=== PATIENT | male | born 1955 | race Caucasian/White ===

== ENCOUNTER 2016-07-15 12:22 | Emergency (ER) | payer MEDICARE, BC ==
[2016-07-15 12:28] VITALS: BP 158/93
[2016-07-15] MEDS ORDERED: oxyCODONE/Acetamin 5/325 MG* TAB PO ONE (12:44)
[2016-07-15] MEDS ORDERED: Cyclobenzaprine TAB* 10 MG PO ONE (12:57)
--- NOTE | 2016-07-15 13:49 | RAD ---
HISTORY: Pain behind knee and calf of the left extremity COMPARISONS: February 21, 2014 TECHNIQUE: Multiple transverse and longitudinal ultrasound images were obtained of the left lower extremity from the level of the common femoral vein inferiorly through to the infrapopliteal veins using grayscale, color Doppler, and spectral Doppler imaging with and without compression and with augmentation. Comparison images were obtained of the contralateral common femoral vein. FINDINGS: VEINS: The venous system of the left lower extremity for comparison is compressible throughout its course, with normal flow on color Doppler imaging and normal response to augmentation on spectral Doppler imaging. SOFT TISSUES: Unremarkable. OTHER FINDINGS: None. IMPRESSION: NO LEFT LOWER EXTREMITY DEEP VEIN THROMBOSIS
[2016-07-15] MEDS ORDERED: Ketorolac INJ* 30 MG/ML 1 ML VIAL IM ONE (14:52)
[2016-07-15] MEDS ORDERED: Gabapentin CAP(*) 300 MG PO ONE (15:26)
--- NOTE | 2016-07-15 15:29 | RAD ---
INDICATION: Left lower leg pain. TECHNIQUE: 2 views of the left lower leg were obtained. FINDINGS: The bones are normal alignment. No fracture is seen. IMPRESSION: NO EVIDENCE FOR FRACTURE, IF THE PATIENT'S SYMPTOMS PERSIST CONSIDER MR IMAGING.
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
== END 2016-07-15 16:01 | disposition home or self-care (01) ==
LOC: ED 12:22
DX: M79.605 Pain in left leg (principal)
CPT/HCPCS: 96372; 99282; A9270-GY; J1885

== ENCOUNTER 2016-12-21 14:04 | Observation (INO) | payer MEDICARE, BC ==
[2016-12-21 14:50] LABS: Hematocrit 38 % (42-52); Hemoglobin 12.6 g/dl (14.0-18.0); Mean Corpuscular HGB Conc 34 g/dl (31-36); Mean Corpuscular Hemoglobin 28 pg (27-31); Mean Corpuscular Volume 85 fL (80-94); Mean Platelet Volume 10 um3 (7.4-10.4); Red Blood Count 4.44 10^6/ul (4.0-5.4); Red Cell Distribution Width 14 % (10.5-15); White Blood Count 3.7 10^3/ul (3.5-10.8)
[2016-12-21 15:07] LABS: Albumin 3.9 g/dL (3.2-5.2); BUN/Creatinine Ratio 21.7 (8-20); Calcium 9.1 mg/dL (8.6-10.3); EGFR African American 79.7 (>60); Globulin 2.6 g/dL (2-4); Magnesium 1.9 mg/dL (1.9-2.7); Potassium 4.2 mmol/L (3.5-5.0); Total Bilirubin 0.4 mg/dL (0.2-1.0); Total Protein 6.5 g/dL (6.4-8.9)
[2016-12-21 15:15] LABS: Troponin I 0.05 ng/mL (<0.04)
[2016-12-21] MEDS ORDERED: NS 0.9% 1000 ML* 1,000 ML IV ONE (15:29)
[2016-12-21] MEDS ORDERED: Aspirin TAB* 325 MG PO ONE (15:29)
--- NOTE | 2016-12-21 15:38 | RAD ---
HISTORY: Left leg weakness, headache COMPARISONS: Head CT dated November 09, 2014 TECHNIQUE: Multiple contiguous axial CT scans were obtained of the head without intravenous contrast. FINDINGS: HEMORRHAGE/INFARCT: There is no hemorrhage or acute infarct. MASSES/SHIFT: There is no mass or shift. EXTRA-AXIAL SPACES: There are no extra-axial fluid collections. SULCI AND VENTRICLES: The sulci and ventricles are normal in size and position for the patient's stated age. CEREBRUM: There is left frontal encephalomalacia. BRAINSTEM: There are no focal parenchymal abnormalities. CEREBELLUM: There are no focal parenchymal abnormalities. VESSELS: The vessels are grossly normal. PARANASAL SINUSES: The paranasal sinuses are clear. ORBITS: The orbits are unremarkable. BONES AND SOFT TISSUE: There is post surgical change to the left frontal skull OTHER: None IMPRESSION: STABLE LEFT FRONTAL ENCEPHALOMALACIA. NO ACUTE INTRACRANIAL PATHOLOGY.
[2016-12-21 15:50] LABS: TSH (Thyroid Stimulating Horm) 1.56 mcIU/mL (0.34-5.60)
[2016-12-21] MEDS ORDERED: Metoclopramide IV* 5 MG/ML 2 ML VIAL IV SLOW PU ONE (16:01)
[2016-12-21] MEDS ORDERED: Acetaminophen TAB* 325 MG PO PRN (16:48)
[2016-12-21] MEDS ORDERED: Dextrose 50% Syringe 50 ML* 25 GM/50 ML SYRINGE IV PUSH PRN (16:59)
[2016-12-21] MEDS: oxyCODONE/Acetamin 5/325 MG* TAB PO PRN (17:25)
[2016-12-21] MEDS: NS 0.9% 1000 ML* 1,000 ML IV SCH (18:31)
[2016-12-21] MEDS ORDERED: Gabapentin CAP(*) 300 MG PO SCH (21:00)
[2016-12-21] MEDS: Pancrelipase CAP* 5,000 UNITS CAP PO SCH (21:04)
[2016-12-21] MEDS: Magnesium Oxide TAB* 400 MG PO SCH (21:04)
[2016-12-21] MEDS: Divalproex DR TAB(*) 500 MG PO SCH (21:04)
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
--- NOTE | 2016-12-21 22:31 | PN ---
Progress Note - Progress Note Date of Service: 12/21/16 Note: Nursing called reporting concern for irregular rhythm. ECG requested, reviewed shows NSR rate 67 w/ ischemia. Patient is asymptomatic.
[2016-12-22] MEDS: NS 0.9% 1000 ML* 1,000 ML IV SCH ×2 (02:09→10:45)
[2016-12-22] MEDS: oxyCODONE/Acetamin 5/325 MG* TAB PO PRN ×3 (02:21→11:56)
[2016-12-22 02:34] LABS: Urine Bacteria Absent (Absent); Urine Bilirubin Negative (Negative); Urine Glucose Negative (Negative); Urine Nitrite Negative (Negative)
[2016-12-22 06:22] LABS: Hematocrit 33 % (42-52); Hemoglobin 11.1 g/dl (14.0-18.0); Mean Corpuscular HGB Conc 34 g/dl (31-36); Mean Corpuscular Hemoglobin 29 pg (27-31); Mean Corpuscular Volume 85 fL (80-94); Mean Platelet Volume 10 um3 (7.4-10.4); Red Blood Count 3.88 10^6/ul (4.0-5.4); Red Cell Distribution Width 15 % (10.5-15)
[2016-12-22 06:28] LABS: Comments Flag Yes
[2016-12-22 06:29] LABS: Add Diff/Slide Review? Slide Review Added
[2016-12-22 06:38] LABS: BUN/Creatinine Ratio 25.5 (8-20); Calcium 8.5 mg/dL (8.6-10.3); EGFR African American 105.6 (>60); EGFR Non-African American 82.1 (>60)
[2016-12-22] MEDS: Magnesium Oxide TAB* 400 MG PO SCH (07:28)
[2016-12-22] MEDS: Pancrelipase CAP* 5,000 UNITS CAP PO SCH ×2 (07:29→12:27)
[2016-12-22] MEDS: Divalproex DR TAB(*) 500 MG PO SCH (07:29)
[2016-12-22] MEDS: Insulin LISPRO* 1 UNITS UNIT SUBCUT SCH ×2 (07:35→12:27)
[2016-12-22] MEDS ORDERED: Atorvastatin* 20 MG TAB PO SCH (09:00)
--- NOTE | 2016-12-22 10:25 | PN ---
Subjective Date of Service: 12/22/16 Objective Active Medications: Acetaminophen (Tylenol Tab*) 650 mg PO Q4H PRN PRN Reason: FEVER/PAIN Atorvastatin Calcium (Lipitor*) 20 mg PO QAM [facility] Last Admin: 12/22/16 07:28 Dose: 20 mg Dextrose (D50w Syringe 50 Ml*) 12.5 gm IV PUSH .FOR FS < 60 - SS PRN PRN Reason: FS < 60 Divalproex Sodium (Depakote Dr Tab(*)) 500 mg PO BID [facility] Last Admin: 12/22/16 07:29 Dose: 500 mg Sodium Chloride (Ns 0.9% 1000 Ml*) 1,000 mls @ 125 mls/hr IV PER RATE [facility] Last Admin: 12/22/16 02:09 Dose: 125 mls/hr Insulin Human Lispro (Humalog*) 0 units SUBCUT [facility] PRN Reason: Protocol Last Admin: 12/22/16 07:35 Dose: Not Given Magnesium Oxide (Magox 400 Tab*) 800 mg PO BID [facility] Last Admin: 12/22/16 07:28 Dose: 800 mg Oxycodone/Acetaminophen (Percocet 5/325 Tab*) 1 tab PO Q4H PRN PRN Reason: Pain Last Admin: 12/22/16 07:29 Dose: 1 tab Pancrelipase (Zenpep Delayed Cap*) 40,000 units PO [facility] Last Admin: 12/22/16 07:29 Dose: 40,000 units Vital Signs 12/21/16 12/21/16 12/21/16 17:00 17:25 17:30 Temperature Pulse Rate 58 56 Respiratory 10 16 12 Rate Blood Pressure 136/78 129/80 (mmHg) O2 Sat by Pulse 95 95 Oximetry 12/21/16 12/22/16 12/22/16 18:20 00:24 02:21 Temperature 97.7 F 98.5 F Pulse Rate 55 55 Respiratory 14 18 16 Rate Blood Pressure 128/77 120/76 (mmHg) O2 Sat by Pulse 96 96 Oximetry 12/22/16 12/22/16 12/22/16 03:19 04:21 07:29 Temperature 98.0 F Pulse Rate 57 Respiratory 16 16 18 Rate Blood Pressure 112/72 (mmHg) O2 Sat by Pulse 95 Oximetry Result Diagrams: 12/22/16 06:00 12/22/16 06:00 Assess/Plan/Problems-Billing Assessment:
--- NOTE | 2016-12-22 12:43 | ECHO ---
Patient: ELSY GOMEZ [facility] Rec#: [id number] : 1955 Date: 12/22/2016 Age: 61y Height: 198.1 cm / 78.0 in Weight: 99.3 kg / 218.9 lbs Sex: M BSA: 2.4 Room#: 453 Admit Date#: 12/21/2016 Type: Inpatient Referring: Jaylene Canales MD Reading: Jaylan Pike DO Court Magistrate: Kelley Davison RN RDCS CC: Socorro Larkin, ELECTRICIAN SOUND Transthoracic Echocardiogram Indication: Near sycope, elevated troponin levels BP: 112/72 HR: 54 Rhythm: Bradycardia Findings History: S/P resection of parasagittal meningioma, partial seizures, lumbosacral spondylosis Technical Comments: The study quality is fair. The study is technically limited due to patient body habitus. Completed at 1215. Left Ventricle: The left ventricular chamber size is normal. Mild concentric left ventricular hypertrophy is observed. Global left ventricular wall motion and contractility are within normal limits. There is normal left ventricular systolic function. The estimated ejection fraction is 60-65%. There is no consistent Doppler evidence of clinically significant diastolic dysfunction. Left Atrium: The left atrium is mildly dilated. Right Ventricle: The right ventricular chamber size and systolic function are within normal limits. Right Atrium: The right atrial cavity size is normal. Aortic Valve: The aortic valve is trileaflet. The aortic valve leaflets are mildly thickened. There is no evidence of aortic regurgitation. There is no evidence of aortic stenosis. Mitral Valve: The mitral valve leaflets are mildly thickened. There is trace to mild mitral regurgitation. There is no evidence of mitral stenosis. Tricuspid Valve: The tricuspid valve leaflets are normal. There is trace to mild tricuspid regurgitation. No pulmonary hypertension is noted. There is no tricuspid stenosis. Pulmonic Valve: The pulmonic valve structure is not well visualized. There is no evidence of pulmonic regurgitation. There is no pulmonic stenosis. Pericardium: There is no significant pericardial effusion. Aorta: There is moderate dilatation of the ascending aorta. The aortic arch is not well visualized. There is mild dilatation of the aortic root. Pulmonary Artery: The main pulmonary artery is not well visualized. Venous: The venous system is not well visualized. The inferior vena cava is not visualized. Conclusions The left ventricular chamber size is normal. Mild concentric left ventricular hypertrophy is observed. There is normal left ventricular systolic function. Global left ventricular wall motion and contractility are within normal limits. The estimated ejection fraction is 60-65%. The left atrium is mildly dilated. The right ventricular chamber size and systolic function are within normal limits. No significant valvular abnormalities noted. There is mild to moderate dilatation of the ascending aorta (4.3 cm). No prior studies available for comparison at time of interpretation. Measurements Name Value Normal Range RVDdMajor (2D) 3.7 cm (2.2 - 4.4) RAd ISD 4CH 4.8 cm (3.4 - 4.9) RA (A4C)W 3.6 cm (2.9 - 4.6) IVSd (2D) 1.3 cm (0.6 - 1) LVPWd (2D) 1.2 cm (0.6 - 1) LVIDd (2D) 5.4 cm (3.6 - 5.4) LVIDs (2D) 4.1 cm - LV FS (2D) 24 % (25 - 45) Aortic Annulus 2.6 cm (1.4 - 2.6) Ao root diameter (2D) 4 cm (2.1 - 3.5) Ascending Ao 4.3 cm (2.1 - 3.4) LA dimension (AP) 2D 4.2 cm (2.3 - 3.8) LAd ISD 4CH 4.6 cm (2.9 - 5.3) LA ISD 4CH W 4.2 cm (2.5 - 4.5) Name Value Normal Range MV E-wave Vmax 0.59 m/sec - MV deceleration time 340 msec - MV A-wave Vmax 0.8 m/sec - MV E:A ratio 0.73 ratio - LV septal e' Vmax 0.08 m/sec - LV lateral e' Vmax 0.1 m/sec - LV E:e' septal ratio 7.4 ratio - LV E:e' lateral ratio 5.9 ratio - Name Value Normal Range AV Vmax 1.6 m/sec - AV VTI 40.1 cm - AV peak gradient 10.6 mmHg - AV mean gradient 6.2 mmHg - LVOT Vmax 0.85 m/sec - LVOT VTI 20.9 cm - LVOT peak gradient 2.9 mmHg - LVOT mean gradient 1.6 mmHg - Name Value Normal Range TR Vmax 2.3 m/sec - TR peak gradient 21 mmHg - RAP 8 mmHg - RVSP 29 mmHg - Name Value Normal Range PV Vmax 0.78 m/sec -
[2016-12-22 15:34] VITALS: BP 125/76
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
== END 2016-12-22 17:38 | disposition home or self-care (01) ==
LOC: ED 14:04 → MEDTELE 16:48
PROVIDERS: ADMIT Internal Medicine; ATTEND Internal Medicine
DX: R41.82 Altered mental status, unspecified (principal); R56.9 Unspecified convulsions; R74.8 Abnormal levels of other serum enzymes; E87.2 Acidosis; E86.0 Dehydration; N17.9 Acute kidney failure, unspecified; E11.9 Type 2 diabetes mellitus without complications; Z79.84 Long term (current) use of oral hypoglycemic drugs; K86.89 Other specified diseases of pancreas; E83.42 Hypomagnesemia; I51.7 Cardiomegaly; G93.89 Other specified disorders of brain; K52.9 Noninfective gastroenteritis and colitis, unspecified; M47.16 Other spondylosis with myelopathy, lumbar region; R51 Headache; R53.1 Weakness
CPT/HCPCS: 36415; 70450; 80048; 80053; 81003; 81015; 83605; 83735; 84443; 84484; 85025; 87086; 93005; 93306; 96374; 99285; A9270-GY; G0378; J2765

== ENCOUNTER 2018-06-25 13:59 | Emergency (ER) | payer MEDICARE, BC ==
--- OUTSIDE RECORDS SUMMARY | 2018-06-25 14:06 | XMS REPORT | Continuity of Care Document ---
:1955 External Reference #:[id number] Author Name Eugenia Cai Care Team Providers Name Role Phone Dot Parson N.P. Primary Care Physician Unavailable Payers Date Identification Numbers Payment Provider Subscriber Effective: 1995 Policy Number: [id number] Medicare Elsy Morelos PayID: [id number] [address] [place] [address] Effective: 2014 Policy Number: [id number] BS Facets Elsy Morelos PayID: [id number] [address] [address] [place] [address] Onset: 1987 Policy Number: [id number] [facility] Insurance [facility] Elsy Morelos Group Number: [id number] [address] [address] [place]: [place] [address] Effective: 1997 Policy Number: [id number] BS Of Y Elsy Morelos Expires: 2010 Group Number: [id number] [address] [address] Group Name: [facility] [place] [id number] PayID: [id number] Advance Directives Description No Information Available Problems Date Description Provider Status Onset: 03/12/2013 Brachial neuritis Patrice Zamora M.D. Active Onset: 05/04/2014 Intracranial meningioma Dahlia Brush M.D. Active Note: resection with Dr. Zamora at [facility]: 02/17/14 Onset: 05/04/2014 Localization-related epilepsy Dahlia Brush M.D. Active Note: Secondary to meningioma post resection, Last seizure: 03/11/14 Onset: 05/27/2014 Headache Patrice Zamora M.D. Active Onset: 06/20/2014 Benign neoplasm of cerebral meninges Patrice Zamora M.D. 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 tablets by mouth twice a day. Morphine 04/04/ Active Tablets 15mg 90tab 1 by mouth Patrice Oliveros 2013 s three times a Poll, day as needed M.D. for headaches Lipitor / Active Tablets 20mg 90tab one tab by Unknown 0000 s mouth every night at bedtime Creon / Active Caps [id number] 90cap 9 by mouth Unknown 0000 Part s every day Glipizide / Active Tablets 10mg 1 by mouth Unknown 0000 twice a day Metformin HCL / Active Tablets 1000mg 1 po bid Unknown 0000 Vitamin B / Active Tablets 1 by mouth Unknown Complex 0000 every day Vitamin D-1000 / Active Tablets 1000Unit 90tab 2 by mouth Unknown Maximum 0000 s every day Strength Dexilant / Active Capsules 30mg 30cap 1 by mouth Unknown 0000 DR s every day Tricor / Active Tablets 145mg 30tab 1 by mouth Unknown 0000 s every day Methadone HCL 00/ Active Tablets 10mg 180ta 6 by mouth Unknown 0000 bs three times a day Magnesium 00/ Active Tablets 500mg 1 po qam and Unknown Gluconate 0000 2 po q evening Lamotrigine 12/23/ Hx Kit 25(35)mg 1kit follow G40.209 Dahlia Starter 2018 - instructions Trudi Kit-Blue 01/23/ on kit and in M.D. 2018 note to slowly increase lamotrigine Lamictal 06/24/ Hx Tablets 25mg 120ta take two tabs G40.109 Dahlia 2017 - bs by mouth at [facility], 08/19/ night x 2 M.D. 2017 weeks, then 2 tablets twice a day x 2 weeks, then 2 in am and 4 in pm (with 200mg tabs) Lamotrigine 02/13/ Hx Tablets 200mg 90tab take one and Amaury SKayla 2014 - a half tablet Viviana, 12/20/ by mouth M.D. 2016 twice a day Morphine 10/14/ Hx Tablets 15mg 180ta 1-2 tabs q8 Patrice Dallas Sulfate ER 2014 - ER bs hours as Sera, 04/28/ needed M.D. 2016 Lamotrigine 10/05/ Hx Tablets 150mg 180ta 1 by mouth Dahlia 2014 - bs twice a day Trudi, 02/13/ M.D. 2014 Morphine 09/16/ Hx Tablets 30mg 180ta 1 to 2 tab by 784.0 Patrice Dallas Sulfate ER 2014 - ER bs mouth every 8 Sera, 10/14/ hours as M.D. 2014 needed Methocarbamol 06/20/ Hx Tablets 500mg 60tab 1-3 tab by Patrice Dallas 2014 - s mouth four Pollceferino, 06/23/ times a day M.D. 2016 as needed spams Lamotrigine 05/31/ Hx Tablets 100mg 90tab 1 + 1/2 tabs Dahlia 2014 - s by mouth Trudi, 10/05/ twice a day M.D. 2014 Morphine 05/27/ Hx Caps ER 30mg 90cap 1 cap by 784.0 Patrice Dallas Sulfate ER 2015 - 24HR s mouth every 8 Sera, 09/16/ hours M.D. 2014 Lamotrigine 04/26/ Hx Tablets 25mg 120ta 2 tabs (50mg) Tracey 2013 Marisa bs daily x 1 Gnadt, VAMP WETTER 05/31/ week, then 2014 call office for further instructions. Keppra 03/08/ Hx Tablets 500mg 120ta 1/2 tabs po Dahlia 2013 - bs bid Zoiey, 06/26/ M.D. 2014 Dexamethasone 02/08/ Hx Tablets 4mg 90tab 1 tab by Patrice Dallas 2013 - s mouth three Pollceferino, 03/03/ times a day - M.D. 2014 start on friday02/15/14 Phenytoin 02/08/ Hx Capsules 100mg 210ca 3 by mouth in Tracey Sodium Extended 2013 - ps the morning Sherly, VAMP WETTER 10/04/ and 4 by 2014 mouth every night Alprazolam 02/08/ Hx Tablets 1mg 45tab 1 tab by Patrice Dallas 2013 - s mouth every 6 Sera, 12/19/ hours as M.D. 2016 needed anxiety Augmentin 09/23/ Hx Tablets 875-125mg 14tab take one tab Dirk 2012 q12h x 7 days Yamil, M.D. 2013 Bactrim DS 08/28/ Hx Tablets 800-160mg 20tab 1 po twice a Dirk 2012 Yamil, M.D. 2014 Dilaudid 10/26/ Hx Tablets 4mg 60tab 1-3 tabs po Patrice Dallas 2009 - s qid prn Sera, 05/21/ breakthrough M.D. 2010 pain Demerol 09/29/ Hx Tablets 100mg 60tab one po up to Patrice Dallas 2009 - s q4 hours prn Sera, 05/21/ M.D. 2010 Neurontin 09/26/ Hx Capsules 300mg 1 po tid Patrice Dallas 2009 - Sera, 05/21/ M.D. 2010 Valium 08/22/ Hx Tablets 5mg 6tabs 1-2 po 2 Patrice Dallas 2009 - hours prior Sera, 05/21/ to mri august M.D. 2010 take one or two more q 1 hr prn anxiety Neurontin 05/30/ Hx Capsules 100mg 90cap 1 po qhs to Patrice Dallas 2009 - s start x 2 Sera, 09/26/ days then up M.D. 2009 as tolerable slowly to 3 tid 2 days between each change Carisoprodol 05/15/ Hx Tablets 350mg 45tab one po tid Patrice Dallas 2009 - s prn spasm Sera, M.D. 2010 MS Contin 08/05/ Hx Tablets 100mg 360ta 4 tablets po Patrice Dallas 2008 - ER 12HR bs tid Sera, M.D. 2010 MS Contin 07/01/ Hx 200 90uni 1 PO tid Isaiah 2008 - ts F. 08/05/ Chris 2008 M.D. MS Contin 06/27/ Hx Tablets 60mg 90tab 1 po tid Patrice Dallas 2008 - ER 12HR s (take with Sera, 's) M.DKayla 2009 Protonix 05/26/ Hx Tablets 40mg 30tab 1 po qd while Patrice Dallas 2009 - DR enriquez on naproslee Zamora, M.D. 2009 Naprosyn 05/26/ Hx Tablets 375mg 30tab 1 po tid Patrice Dallas 2008 - s Sera, M.D. 2010 Lyrica 05/24/ Hx Capsules 75mg 90cap 1 po tid Patrice Dallas 2008 - s Sera, M.D. 2009 MS Contin 05/02/ Hx Tablets 100mg 90tab 1 po tid Patrice Dallas 2008 - ER 12HR s (take with Sera, 60's) M.DKayla 2009 Cymbalta 12/31/ Hx Caps DR 30mg 60cap PO bid Patrice Dallas 2007 - PA mina Zamora, M.DKayla 2010 Lyrica 12/24/ Hx Capsules 75mg 14cap 1 PO bid Patrice Dallas 2008 - s Sera MKaylaD. 2009 Fentanyl 12/24/ Hx Patches 50mcg/HR 10uni One Every 3RD Patrice Dallas 2007 - 72HR ts Day Sera, M.DKayla 2010 Dilaudid 12/24/ Hx Tablets 4mg 160ta 1-2 po qid Patrice Dallas 2008 - bs prn Sera, M.DKayla 2010 Oxycodone HCL 11/26/ Hx Capsules 5mg 90cap 1-2 qid prn Patrice Dallas 2007 - s Sera, 09/04/ MBeba 2009 Medrol Dosepak 11/26/ Hx Tablets 4mg 1tabs use as Patrice Dallas 2008 - directed Sera, 05/21/ Fred 2010 Methadone 100MG / Hx Unknown tid 0000 - 2013 Famotidine / Hx Tablets Unknown 60tab take one Unknown 0000 - s tablet day 2013 Wellbutrin SR / Hx Tablets 150mg 60tab 1 by mouth Unknown 0000 - ER 12HR s three times a 2014 Depakote / Hx Tablets 500mg 120ta 1 by mouth Dahlia thomson twice a day Trudi 06/09/ MBeba 2019 Immunizations Description No Information Available Vital Signs Date Vital Result Comment 06/10/2018 8:29am Height 78 inches 6'6" Weight 238.00 lb Heart Rate 66 /min BP Systolic 140 mmHg BP Diastolic 82 mmHg BMI (Body Mass Index) 27.5 kg/m2 04/08/2018 7:51am Height 78 inches 6'6" Weight 245.00 lb Heart Rate 74 /min BP Systolic Sitting 130 mmHg BP Diastolic Sitting 78 mmHg Respiratory Rate 16 /min BMI (Body Mass Index) 28.3 kg/m2 01/23/2018 8:00am Height 78 inches 6'6" Weight 237.00 lb Heart Rate 78 /min BP Systolic Sitting 130 mmHg BP Diastolic Sitting 88 mmHg Respiratory Rate 16 /min BMI (Body Mass Index) 27.4 kg/m2 12/23/2017 9:52am Height 78 inches 6'6" Weight 233.25 lb Heart Rate 80 /min BP Systolic Sitting 120 mmHg BP Diastolic Sitting 72 mmHg Respiratory Rate 20 /min O2 % BldC Oximetry 98 % BMI (Body Mass Index) 27.0 kg/m2 11/14/2017 2:56pm Height 78 inches 6'6" Weight 210.00 lb Heart Rate 64 /min BP Systolic Sitting 124 mmHg BP Diastolic Sitting 78 mmHg Respiratory Rate 16 /min BMI (Body Mass Index) 24.3 kg/m2 01/01/2017 3:48pm Height 78 inches 6'6" Weight 219.00 lb Heart Rate 72 /min BP Systolic Sitting 138 mmHg BP Diastolic Sitting 94 mmHg Respiratory Rate 16 /min BMI (Body Mass Index) 25.3 kg/m2 12/20/2016 9:05am Height 78 inches 6'6" Weight 238.00 lb Heart Rate 72 /min BP Systolic Sitting 120 mmHg BP Diastolic Sitting 70 mmHg Respiratory Rate 16 /min BMI (Body Mass Index) 27.5 kg/m2 06/24/2016 8:30am Height 77 inches 6'5" Weight 257.00 lb Heart Rate 64 /min BP Systolic Sitting 142 mmHg BP Diastolic Sitting 86 mmHg Respiratory Rate 14 /min BMI (Body Mass Index) 30.5 kg/m2 12/20/2015 2:10pm Height 77 inches 6'5" Weight 242.00 lb Heart Rate 70 /min BP Systolic Sitting 122 mmHg BP Diastolic Sitting 70 mmHg Respiratory Rate 16 /min BMI (Body Mass Index) 28.7 kg/m2 08/07/2015 2:32pm Height 77 inches 6'5" Weight 253.00 lb Heart Rate 76 /min BP Systolic Sitting 138 mmHg BP Diastolic Sitting 78 mmHg Pain Level 4 BMI (Body Mass Index) 30.0 kg/m2 05/02/2015 9:33am Height 77 inches 6'5" Weight 253.00 lb Heart Rate 78 /min BP Systolic Sitting 140 mmHg BP Diastolic Sitting 80 mmHg Pain Level 7 BMI (Body Mass Index) 30.0 kg/m2 01/27/2015 10:33am Height 77 inches 6'5" Weight 247.00 lb Heart Rate 78 /min BP Systolic Sitting 140 mmHg BP Diastolic Sitting 90 mmHg Pain Level 2 headache BMI (Body Mass Index) 29.3 kg/m2 10/05/2014 10:34am Height 77 inches 6'5" Weight 250.00 lb Heart Rate 64 /min BP Systolic Sitting 142 mmHg BP Diastolic Sitting 78 mmHg Respiratory Rate 16 /min BMI (Body Mass Index) 29.6 kg/m2 09/20/2014 10:42am Height 77 inches 6'5" Weight 250.00 lb Heart Rate 66 /min BP Systolic Sitting 140 mmHg BP Diastolic Sitting 88 mmHg Pain Level 0 BMI (Body Mass Index) 29.6 kg/m2 06/27/2014 2:37pm Height 77 inches 6'5" Heart Rate 68 /min BP Systolic Sitting 136 mmHg BP Diastolic Sitting 86 mmHg Respiratory Rate 16 /min 06/20/2014 10:03am Height 77 inches 6'5" Weight 241.00 lb Heart Rate 78 /min BP Systolic Sitting 130 mmHg BP Diastolic Sitting 84 mmHg Pain Level 9 back BMI (Body Mass Index) 28.6 kg/m2 05/27/2014 1:49pm Height 77 inches 6'5" Weight 279.00 lb Heart Rate 78 /min BP Systolic Sitting 180 mmHg BP Diastolic Sitting 100 mmHg Pain Level 8 headache BMI (Body Mass Index) 33.1 kg/m2 05/09/2014 2:27pm Height 77 inches 6'5" Weight 274.00 lb BMI (Body Mass Index) 32.5 kg/m2 05/04/2014 2:02pm Height 77 inches 6'5" Weight 265.00 lb Heart Rate 80 /min BP Systolic Sitting 166 mmHg BP Diastolic Sitting 102 mmHg Respiratory Rate 16 /min BMI (Body Mass Index) 31.4 kg/m2 04/06/2014 1:34pm Height 77 inches 6'5" Weight 276.00 lb Heart Rate 72 /min BP Systolic Sitting 140 mmHg BP Diastolic Sitting 82 mmHg Respiratory Rate 16 /min BMI (Body Mass Index) 32.7 kg/m2 04/04/2014 3:07pm Height 77 inches 6'5" Weight 276.00 lb Heart Rate 78 /min BP Systolic 130 mmHg BP Diastolic 88 mmHg Pain Level 5 headache BMI (Body Mass Index) 32.7 kg/m2 03/16/2014 11:26am Height 77 inches 6'5" Weight 268.00 lb Heart Rate 80 /min BP Systolic Sitting 120 mmHg BP Diastolic Sitting 78 mmHg Respiratory Rate 16 /min BMI (Body Mass Index) 31.8 kg/m2 02/08/2014 11:14am Height 77 inches 6'5" Weight 275.00 lb Heart Rate 88 /min BP Systolic Sitting 220 mmHg BP Diastolic Sitting 120 mmHg Pain Level 5 head BMI (Body Mass Index) 32.6 kg/m2 03/12/2013 1:17pm Heart Rate 88 /min BP Systolic 180 mmHg BP Diastolic 100 mmHg Body Temperature 97.8 F Results Test Date Facility Test Result H/L Range Note Laboratory test [facility] Valproic Acid 80.0 N 50- 100 finding [address] (Depakene) g/[place] [address] [phone] Laboratory test [facility] Valproic Acid 68.0 N 50- 100 finding [address] (Depakene) g/[place] [address] [phone] Laboratory test [facility] Valproic Acid 64.0 N 50- 100 finding [address] (Depakene) g/[place] [address] [phone] Laboratory test [facility] Lamotrigine 1.6 g/mL Abnormal 2.5 - 1 finding [address] (Lamictal) 15.0 [place] [address] [phone] Laboratory test Lamotrigine 3.8 g/mL N 2.5 - 2 finding 5 (Lamictal) 15.0 Magnesium 1.7 mg/dL Low 1.9-2.7 Creatinine 05/06/2014 [facility] Creatinine 0.99 mg/dL N 0.67- 1.[address] [place] [address] [phone] Egfr Non- 78.2 N >60 Egfr 100.6 N >60 3 Phenytoin Free & Total 05/02/2014 Free Phenytoin Level 1.4 g/mL N 4 Total Phenytoin 15.5 g/mL N 5 Laboratory test finding 04/15/2014 Phenytoin 9.5 g/mL Low 10.0-20.0 Magnesium 1.6 mg/dL Low 1.9-2.7 Laboratory test finding 04/15/2014 Levetiracetam 3.0 g/mL Abnormal 6 Laboratory test finding 03/25/2014 Magnesium 1.5 mg/dL Low 1.9-2.7 7 Phenytoin 16.5 g/mL N 10.0-20.0 8 Laboratory test 03/11/2014 [facility] Phenytoin 12.2 g/mL N 10.0-20.[address] [place] [address] [phone] Comp Metabolic 03/11/2014 [facility] Sodium 140 mmol/L N 133- [address] [place] [address] [phone] Potassium 4.3 mmol/L N 3.5-5.0 9 Chloride 105 mmol/L N 101-111 Co2 Carbon Dioxide 28 mmol/L N 22-32 Anion Gap 7 mmol/L N 2-11 Glucose 72 mg/dL N 70-100 Blood Urea Nitrogen 13 mg/dL N 6-24 Creatinine 0.83 mg/dL N 0.67-1.17 BUN/Creatinine Ratio 15.7 N 8-20 Calcium 9.1 mg/dL N 8.6-10.3 Total Protein 5.8 g/dL Low 6.4-8.9 Albumin 3.6 g/dL N 3.2-5.2 Globulin 2.2 g/dL N 2-4 Albumin/Globulin Ratio 1.6 N 1-3 Total Bilirubin 0.30 mg/dL N 0.2-1.0 Alkaline Phosphatase 41 U/L N 34-104 Alt 25 U/L N 7-52 Ast 26 U/L N 13-39 Egfr Non- 95.8 N >60 Egfr 123.3 N >60 10 Laboratory test 03/11/2014 [facility] Magnesium 1.3 mg/dL Low 1.9-2.[address] [place] [address] [phone] CBC No Diff 02/11/2014 [facility] White Blood 5.6 N 4.8-10.[address] Count 10^3/[place] [address] [phone] Red Blood Count 4.30 10^6/uL N 4.0-5.4 Hemoglobin 13.3 g/dL Low 14.0-18.0 Hematocrit 40 % Low 42-52 Mean Corpuscular Volume 93 fL N 80-94 Mean Corpuscular Hemoglobin 31 pg N 27-31 Mean Corpuscular HGB Conc 33 g/dL N 31-36 Red Cell Distribution Width 14 % N 10.5-15 Platelet Count 103 10^3/uL Low 150-450 Mean Platelet Volume 10 um3 N 7.4-10.4 Type & Screen 02/11/2014 [facility] Patient Blood Type O Positive N [address] [place] [address] [phone] Antibody Screen NEGATIVE N Laboratory test 02/11/2014 [facility] Blood Urea 6 mg/dL N 6- [address] [place] [address] [phone] Creatinine 02/11/2014 [facility] Creatinine 0.91 mg/dL N 0.67- [address] [place], [place] [address] [phone] Egfr Non- 86.2 N >60 Egfr 110.8 N >60 12 Basic Metabolic Panel 02/11/2014 [facility] Sodium 134 mmol/L N 133-[address] [place] [address] [phone] Potassium 4.0 mmol/L N 3.7-5.6 Chloride 100 mmol/L Low 101-111 Co2 Carbon Dioxide 26 mmol/L N 22-32 Anion Gap 8 mmol/L N 2-11 Glucose 158 mg/dL High 70-100 Creatinine 0.91 mg/dL N 0.67-1.17 BUN/Creatinine Ratio 6.6 Low 8-20 Calcium 8.5 mg/dL Low 8.6-10.3 Egfr Non- 86.2 N >60 Egfr 110.8 N >60 13 Surgical Pathology 09/10/2012 [facility] S RUN DATE: 14 10/05/ <[place] [address] NOTE> [phone] Urinalysis 08/27/2012 [facility] [place] [address] [phone] Urine Appearance Clear Urine Specific [place] 1.031 High 1.010-1.030 Urine Esterase 1+ Abnormal Negative Urine Nitrate Negative Negative Urine Urobilinogen Negative E.U./dL Negative Urine Protein Trace mg/dL Negative Urine pH 5.5 5-9 Urine Blood Negative Negative Urine Ketones Trace mg/dL Abnormal Negative Urine Bilirubin 1+ Abnormal Negative Urine Glucose Negative mg/dL Negative Urine Microscopic 08/27/2012 [facility] Urine Casts 2+ Hyaline None Seen [address]IVE /[place] [address] [phone] Urine WBC 1+ (<3 /hpf) None Seen Urine RBC None Seen None Seen Urine Mucus Present /lpf Absent Urine Epithelial Cells 1+ Squamous /hpf None Seen Crystals Urine Calcium Oxalate /lpf None Seen Urine Culture And 08/27/2012 [facility] Urine Culture (SEE NOTE ) [address] [place] [address] [phone] CBC Auto Diff 08/27/2012 [facility] White Blood 5.3 10^3/uL 4.8-[address] Count .8 [place] [address] [phone] Red Blood Count 4.57 10^6/uL 4.0-5.4 Hemoglobin 14.4 g/dL 14.0-18.0 Hematocrit 43 % 42-52 Mean Corpuscular Volume 95 fL High 80-94 Mean Corpuscular Hemoglobin 32 pg High 27-31 Mean Corpuscular HGB Conc 33 g/dL 31-36 Red Cell Distribution Width 13 % 10.5-15 Platelet Count 120 10^3/uL Low 150-450 Mean Platelet Volume 10 um3 7.4-10.4 Abs Neutrophils 3.4 10^3/uL 1.5-7.7 Abs Lymphocytes 1.3 10^3/uL 1.0-4.8 Abs Monocytes 0.4 10^3/uL 0-0.8 Abs Eosinophils 0.2 10^3/uL 0-0.6 Abs Basophils 0 10^3/uL 0-0.2 Abs Nucleated RBC 0 10^3/uL Granulocyte % 64.3 % 38-83 Lymphocyte % 24.2 % Low 25-47 Monocyte % 7.8 % 1-9 Eosinophil % 3.0 % 0-6 Basophil % 0.7 % 0-2 Nucleated Red Blood Cells % 0.1 Comp Metabolic Panel 08/27/2012 [facility] Sodium 137 mmol/L 133-[address] [place] [address] [phone] Potassium 4.4 mmol/L 3.5-5.0 Chloride 101 mmol/L 101-111 Co2 Carbon Dioxide 29.0 mmol/L 22-32 Anion Gap 7.0 mmol/L 2-11 Glucose 132 mg/dL High 70-100 Blood Urea Nitrogen 7 mg/dL 6-24 Creatinine 1.00 mg/dL 0.50-1.40 BUN/Creatinine Ratio 7.0 Low 8-20 Calcium 9.0 mg/dL 8.1-9.9 Total Protein 5.9 g/dL Low 6.2-8.1 Albumin 4.0 g/dL 3.6-5.4 Globulin 1.9 g/dL Low 2-4 Albumin/Globulin Ratio 2.1 1-3 Total Bilirubin 0.9 mg/dL 0.4-1.5 Alkaline Phosphatase 58 U/L 30-110 Alt 58 U/L High 14-54 Ast 77 U/L High 12-42 Egfr Non- 77.9 >60 Egfr 100.1 >60 16 Type & Screen 08/27/2012 [facility] Patient Blood Type O Positive [address] [place] [address] [phone] Antibody Screen NEGATIVE MRSA/Vre Screen 09/07/2009 [facility] MRSA/Vre NFICU [address] [place] [address] [phone] Surgical 09/07/2009 [facility] Surgical [address] Pathology ----- <[place] [address] NOTE> [phone] Basic Metabolic 09/04/2009 [facility] Sodium 136 mmol/L 135- 14 [address] 5 [place] [address] [phone] Potassium 4.1 mmol/L 3.5-5.0 Chloride 104 mmol/L 101-111 Co2 (Carbon Dioxide) 26.0 mmol/L 22-32 Anion Gap 6.0 mmol/L 2-11 20 Glucose 148 mg/dL High 70-100 21 BUN 9 mg/dL 6-24 Creatinine 0.80 mg/dL 0.50-1.40 One Over Creatinine 1.20 BUN/Creatinine Ratio 11.3 8-20 Calcium 8.8 mg/dL 8.1-9.9 22 eGFR Non- 107.9 > 60 eGFR 130.5 > 60 23 CBC With 09/04/2009 [facility] White Blood 4.2 CUMM Low 4.8- 10.8 Electronic Diff [address] [place] [address] [phone] Red Cell Count 4.34 CUMM Low 4.6-6.2 Hemoglobin 12.4 g/dL Low 14.0-18.0 Hematocrit 36 % Low 42-52 Mean Corpuscular Volume 84 um3 80-94 Mean Corpuscular Hemoglob 29 pg 27-31 Mean Corpuscular HGB Cone 34 g/dL 32-36 Redcell Distribution WDTH 15 % 10.5-15 Platelet Count 134 CUMM Low 150-450 Mean Platelet Volume 9.1 um3 7.4-10.4 Gran % 63.7 % 38-83 Lymph % 23.2 % Low 25-47 Mononuclear % 8.2 % 1-9 Eosinophil % 4.5 % 0-6 Basophil % 0.4 % 0-2 Abs Lymphs 1.0 1.0-4.8 Abs Mononuclear 0.3 0-0.8 Absolute Neutrophil Count 2.6 1.5-7.7 Abs Eosinophils 0.2 0-0.6 Abs Basophils 0 0-0.2 Type And Screen 09/04/2009 [facility] Patient Blood Type O POSITIVE [address] [place] [address] [phone] Antibody Screen NEGATIVE Specimen Discard Date 09/18/09 24 Surgical 07/13/2008 [facility] Surgical 25 Pathology 101 [facility] Pathology <SEE NOTE> [place] [address] [phone] Lyme Western 06/28/2008 [facility] Lyme Disease Negative Negative 26 Blot [facility] [place] [address] Blot [phone] Lyme Disease Igm Western Blot Negative Negative 27 Lyme Disease Interpretation . () 28 Laboratory test 06/28/2008 [facility] C Reactive < 0.5 mg/dL Less Than finding [facility] Protein 0.5 [place] [address] [phone] Erythrocyte Sed Rate 3 MM/HR 0-20 Protime 06/14/2008 [facility] Protime 11.6 10.9-13.3 [address] [place] [address] [phone] Inr 0.92 29 Laboratory test 06/14/2008 [facility] PTT (Aptt) 21.3 20.1- 28.2 30 finding [address] [place] [address] [phone] Basic Metabolic 06/14/2008 [facility] Sodium 138 mmol/L 135- 145 Panel [address] [place] [address] [phone] Potassium 4.4 mmol/L 3.5-5.0 Chloride 108 mmol/L 101-111 Co2 (Carbon Dioxide) 28.3 mmol/L 22-32 Anion Gap 1.7 mmol/L Low 2-11 31 Glucose 125 mg/dL High 70-100 32 BUN 23 mg/dL 6-24 Creatinine 0.97 mg/dL 0.50-1.40 One Over Creatinine 1.00 BUN/Creatinine Ratio 23.7 High 8-20 Calcium 9.0 mg/dL 8.1-9.9 33 CBC With 06/14/2008 [facility] White Blood 4.0 CUMM Low 4.8- 10.8 Electronic Diff [address] [place] [address] [phone] Red Cell Count 4.55 CUMM Low 4.6-6.2 Hemoglobin 13.1 g/dL Low 14.0-18.0 Hematocrit 38 % Low 42-52 Mean Corpuscular Volume 84 um3 80-94 Mean Corpuscular Hemoglob 29 pg 27-31 Mean Corpuscular HGB Cone 35 g/dL 32-36 Redcell Distribution WDTH 15 % 10.5-15 Platelet Count 157 CUMM 150-450 Mean Platelet Volume 9.3 um3 7.4-10.4 Gran % 54.5 % 38-83 Lymph % 34.3 % 25-47 Mononuclear % 6.8 % 1-9 Eosinophil % 4.0 % 0-6 Basophil % 0.4 % 0-2 Abs Lymphs 1.4 1.0-4.8 Abs Mononuclear 0.3 0-0.8 Absolute Neutrophil Count 2.2 1.5-7.7 Abs Eosinophils 0.2 0-0.6 Abs Basophils 0 0-0.2 Laboratory test 01/15/2008 [facility] Glucose 253 mg/dL High 70-100 [address] [place] [address] [phone] Hemoglobin A1c 6.9 % High <6.0 35 Basic Metabolic Panel 01/15/2008 [facility] Sodium 136 mmol/L 135-[address] [place] [address] [phone] Potassium 4.3 mmol/L 3.5-5.0 Chloride 102 mmol/L 101-111 Co2 (Carbon Dioxide) 25.0 mmol/L 22-32 Anion Gap 9.0 mmol/L 2-11 36 Glucose 233 mg/dL High 70-100 37 BUN 20 mg/dL 6-24 Creatinine 1.2 mg/dL 0.5-1.4 One Over Creatinine 0.83 BUN/Creatinine Ratio 16.7 8-20 Calcium 8.0 mg/dL Low 8.1-9.9 38 CBC With 01/15/2008 [facility] White Blood 11.8 CUMM High 4.8- 10.8 Manual Diff [address] [place] [address] [phone] Red Cell Count 4.23 CUMM Low 4.6-6.2 Hemoglobin 12.5 g/dL Low 14.0-18.0 Hematocrit 36 % Low 42-52 Mean Corpuscular Volume 85 um3 80-94 Mean Corpuscular Hemoglob 30 pg 27-31 Mean Corpuscular HGB Cone 35 g/dL 32-36 Redcell Distribution WDTH 14 % 10.5-15 Platelet Count 185 CUMM 150-450 Mean Platelet Volume 9.4 um3 7.4-10.4 Polysegmented Neutrophil 85 % High 38-83 Band Neutrophil 1 % 0-8 Lymphocyte 11 % 5-47 Monocyte 3 % 0-13 Absolute Neutrophil Count 10.1 RBC Morphology NORMAL CBC With 01/14/2008 [facility] White Blood 9.4 CUMM 4.8-10.8 Electronic Diff [address] [place] [address] [phone] Red Cell Count 4.43 CUMM Low 4.6-6.2 Hemoglobin 13.2 g/dL Low 14.0-18.0 Hematocrit 38 % Low 42-52 Mean Corpuscular Volume 85 um3 80-94 Mean Corpuscular Hemoglob 30 pg 27-31 Mean Corpuscular HGB Cone 35 g/dL 32-36 Redcell Distribution WDTH 13 % 10.5-15 Platelet Count 185 CUMM 150-450 Mean Platelet Volume 8.8 um3 7.4-10.4 Gran % 87.2 % High 38-83 Lymph % 10.6 % Low 20-45 Mononuclear % 1.8 % 1-9 Eosinophil % 0.2 % 0-6 Basophil % 0.2 % 0-2 Abs Lymphs 1.0 1.0-4.8 Abs Mononuclear 0.2 0-0.8 Absolute Neutrophil Count 8.2 High 1.5-7.7 Abs Eosinophils 0 0-0.6 Abs Basophils 0 0-0.2 39 Basic Metabolic Panel 01/14/2008 [facility] Sodium 136 mmol/L 135-[address] [place] [address] [phone] Potassium 5.1 mmol/L High 3.5-5.0 Chloride 103 mmol/L 101-111 Co2 (Carbon Dioxide) 25.0 mmol/L 22-32 Anion Gap 8.0 mmol/L 2-11 40 Glucose 233 mg/dL High 70-100 41 BUN 21 mg/dL 6-24 Creatinine 1.5 mg/dL High 0.5-1.4 One Over Creatinine 0.66 BUN/Creatinine Ratio 14.0 8-20 Calcium 8.1 mg/dL 8.1-9.9 42 Basic Metabolic Panel 01/14/2008 [facility] Sodium 138 mmol/L 135-[address] [place] [address] [phone] Potassium 4.2 mmol/L 3.5-5.0 Chloride 108 mmol/L 101-111 Co2 (Carbon Dioxide) 26.0 mmol/L 22-32 Anion Gap 4.0 mmol/L 2-11 43 Glucose 139 mg/dL High 70-100 44 BUN 16 mg/dL 6-24 Creatinine 0.9 mg/dL 0.5-1.4 One Over Creatinine 1.11 BUN/Creatinine Ratio 17.8 8-20 Calcium 8.7 mg/dL 8.1-9.9 45 CBC With 01/14/2008 [facility] White Blood 4.6 CUMM Low 4.8- 10.8 Electronic Diff [address] [place] [address] [phone] Red Cell Count 4.37 CUMM Low 4.6-6.2 Hemoglobin 12.9 g/dL Low 14.0-18.0 Hematocrit 37 % Low 42-52 Mean Corpuscular Volume 84 um3 80-94 Mean Corpuscular Hemoglob 29 pg 27-31 Mean Corpuscular HGB Cone 35 g/dL 32-36 Redcell Distribution WDTH 13 % 10.5-15 Platelet Count 166 CUMM 150-450 Mean Platelet Volume 8.9 um3 7.4-10.4 Gran % 52.8 % 38-83 Lymph % 31.9 % 20-45 Mononuclear % 9.4 % High 1-9 Eosinophil % 5.2 % 0-6 Basophil % 0.7 % 0-2 Abs Lymphs 1.5 1.0-4.8 Abs Mononuclear 0.4 0-0.8 Absolute Neutrophil Count 2.4 1.5-7.7 Abs Eosinophils 0.2 0-0.6 Abs Basophils 0 0-0.2 Type & Screen 01/14/2008 [facility] Patient Blood Type O POSITIVE [address] [place] [address] [phone] Antibody Screen NEGATIVE Surgical 01/14/2008 [facility] Surgical [address] Pathology <SEE NOTE> [place] [address] [phone] Surgical 12/10/2007 [facility] Surgical [address] Pathology <SEE NOTE> [place] [address] [phone] Cortical Block 12/09/2007 [facility] Cortical [id number] 48 Green #[address] [place] Green <SEE NOTE> [place] [address] #6 [phone] Cortical Block 12/09/2007 [facility] Cortical [id number] 49 Green #[address] [place] <SEE NOTE> [place] #7 [phone] Tissue Kit 12/09/2007 [facility] Tissue Kit [id number] [address] <SEE NOTE> [place] [address] [phone] CBC With 12/07/2007 [facility] White Blood 3.7 CUMM Low 4.8 [address] Count -10 Diff [place] [address] .8 [phone] Red Cell Count 4.39 CUMM Low 4.6-6.2 Hemoglobin 13.1 g/dL Low 14.0-18.0 Hematocrit 37 % Low 42-52 Mean Corpuscular Volume 84 um3 80-94 Mean Corpuscular Hemoglob 30 pg 27-31 Mean Corpuscular HGB Cone 35 g/dL 32-36 Redcell Distribution WDTH 13 % 10.5-15 Platelet Count 138 CUMM Low 150-450 Mean Platelet Volume 9.4 um3 7.4-10.4 Gran % 50.3 % 38-83 Lymph % 35.2 % 20-45 Mononuclear % 8.6 % 1-9 Eosinophil % 5.4 % 0-6 Basophil % 0.5 % 0-2 Abs Lymphs 1.3 1.0-4.8 Abs Mononuclear 0.3 0-0.8 Absolute Neutrophil Count 1.9 1.5-7.7 Abs Eosinophils 0.2 0-0.6 Abs Basophils 0 0-0.2 Basic Metabolic Panel 12/07/2007 [facility] Sodium 141 mmol/L 135-145 [address] [place] [address] [phone] Potassium 4.2 mmol/L 3.5-5.0 Chloride 106 mmol/L 101-111 Co2 (Carbon Dioxide) 29.0 mmol/L 22-32 Anion Gap 6.0 mmol/L 2-11 52 Glucose 147 mg/dL High 70-105 BUN 14 mg/dL 6-24 Creatinine 1.0 mg/dL 0.5-1.4 One Over Creatinine 1.00 BUN/Creatinine Ratio 14.0 8-20 Calcium 8.6 mg/dL 8.1-9.9 53 Type And Screen 12/07/2007 [facility] Patient Blood Type O POSITIVE [address] [place] [address] [phone] Antibody Screen NEGATIVE Specimen Discard Date 12/21/07 54 1 ADDITIONAL INFORMATION This test was developed and its performance characteristics determined by [facility] in a manner consistent with CLIA requirements. This test has not been cleared or approved by the U.S. Food and Drug Administration. Test Performed by: [facility] [place] [address] Professor Of Graphic Design: Joshua Ramirez II, M.D., Ph.D. 2 Test Performed by: [address] [address] Professor Of Graphic Design: Joshua Ramirez II, M.D., Ph.D. 3 Because ethnic data is not always readily available, this report includes an eGFR for both -Americans and non- Americans. The National Kidney Disease Education Program (NKDEP) does not endorse the use of the MDRD equation for patients that are not between the ages of 18 and 70, are , have extremes of body size, muscle mass, or nutritional status, or are non- or non-. According to the National Kidney Foundation, irrespective of diagnosis, the stage of the disease is based on the level of kidney function: Stage Description GFR(mL/min/1.73 m(2)) 1 Kidney damage with normal or decreased GFR 90 2 Kidney damage with mild decrease in GFR 60-89 3 Moderate decrease in GFR 30-59 4 Severe decrease in GFR 15-29 5 Kidney failure <15 (or dialysis) 4 REFERENCE VALUE 1.0 - 2.0 (Toxic >=2.5) 5 REFERENCE VALUE 10.0 - 20.0 Test Performed by: [place] [address] Professor Of Graphic Design: Jamal Fang M.D. 6 REFERENCE VALUE 12.0 - 46.0 Test Performed by: [place] [address] Professor Of Graphic Design: Jamal Fang M.D. 7 Draw in am prior to first dose, in one week. 8 Draw in am prior to first dose, in one week. 9 Potassium reference range changed effective 02/27/14 10 Because ethnic data is not always readily available, this report includes an eGFR for both -Americans and non- Americans. The National Kidney Disease Education Program (NKDEP) does not endorse the use of the MDRD equation for patients that are not between the ages of 18 and 70, are , have extremes of body size, muscle mass, or nutritional status, or are non- or non-. According to the National Kidney Foundation, irrespective of diagnosis, the stage of the disease is based on the level of kidney function: Stage Description GFR(mL/min/1.73 m(2)) 1 Kidney damage with normal or decreased GFR 90 2 Kidney damage with mild decrease in GFR 60-89 3 Moderate decrease in GFR 30-59 4 Severe decrease in GFR 15-29 5 Kidney failure <15 (or dialysis) 11 --- 02/11/14 1332 --- BUN previously reported as: 6 mg/dL 12 Because ethnic data is not always readily available, this report includes an eGFR for both -Americans and non- Americans. The National Kidney Disease Education Program (NKDEP) does not endorse the use of the MDRD equation for patients that are not between the ages of 18 and 70, are , have extremes of body size, muscle mass, or nutritional status, or are non- or non-. According to the National Kidney Foundation, irrespective of diagnosis, the stage of the disease is based on the level of kidney function: Stage Description GFR(mL/min/1.73 m(2)) 1 Kidney damage with normal or decreased GFR 90 2 Kidney damage with mild decrease in GFR 60-89 3 Moderate decrease in GFR 30-59 4 Severe decrease in GFR 15-29 5 Kidney failure <15 (or dialysis) 13 Because ethnic data is not always readily available, this report includes an eGFR for both -Americans and non- Americans. The National Kidney Disease Education Program (NKDEP) does not endorse the use of the MDRD equation for patients that are not between the ages of 18 and 70, are , have extremes of body size, muscle mass, or nutritional status, or are non- or non-. According to the National Kidney Foundation, irrespective of diagnosis, the stage of the disease is based on the level of kidney function: Stage Description GFR(mL/min/1.73 m(2)) 1 Kidney damage with normal or decreased GFR 90 2 Kidney damage with mild decrease in GFR 60-89 3 Moderate decrease in GFR 30-59 4 Severe decrease in GFR 15-29 5 Kidney failure <15 (or dialysis) 14 RUN DATE: 10/05/12 [facility] LAB LIVE PAGE 1 RUN TIME: [address] [place] [address] Specimen Inquiry Name: ELSY MORELOS : [address]: Kumar Lobo MD Acct: [id number] Unit: [id number] AGE: 57 Location: OR Re09/10/12 SEX: M Status: REG SDC SPEC: [id number] TARA: 09/10/12- [facility] DR: Kumar Lobo MD REQ: [id number] RECD: 09/10/120632 STATUS: SOUT _ ORDERED: Decal, LEVEL III FINAL DIAGNOSIS Left hind foot ankle cyst and bone fragment: A. Benign synovial cyst (ganglion cyst). B. Bone with degenerative changes and reactive bony remodeling. PRE-OPERATIVE DIAGNOSIS Left hind foot ankle cyst and bone fragment GROSS DESCRIPTION The specimen is received in formalin labeled Elsy Morelos, Left Hind Foot Ankle Cyst and Bone Fragment, and consists of an irregular hebert-harrington, fibrofatty, soft tissue fragment measuring 3.5 x 2.2 cm. by up to 0.8 cm. and a bone fragment measuring 3.2 x 1.5 x 1.5 cm. with a roughly semi-lunar shape. Mirror Framer sections, one cassette after decal. MICROSCOPIC DESCRIPTION Signed (signature on file) Adrian Urrutia MD 1535 END OF REPORT * ML=Testing performed at Main Lab DEPARTMENT OF PATHOLOGY, Formerly named [facility] [place], [place] [address] Adrian Urrutia M.D. Director [facility] Permit #[id number] RUN DATE: 08/29/12 [facility] LAB LIVE PAGE 1 RUN TIME: 835 Formerly named [facility] [employer] [place], [place] [address] Specimen Inquiry Name: ELSY MORELOS : [address]: Kumar Lobo MD Acct: [id number] Unit: [id number] AGE: 56 Location: [facility] Re08/27/12 SEX: M Status: REG REF SPEC: [id number] TARA: 08/27/12-[address]: Kumar Lobo MD REQ: [id number] RECD: 08/27/12-1021 STATUS: DANNIELLE LOZA DR: Chaya SANTILLAN,[place] _ SOURCE: URINE SPDESC: ORDERED: Urine Culture Procedure Result Verified Site Urine Culture Final 08/29/12- 835 ML Organism 1 NORMAL ANA Boswell Count 10-25,000 (Moderate) CFU/ML END OF REPORT * ML=Testing performed at Main Lab DEPARTMENT OF PATHOLOGY, [address] [place] [address] Adrian Urrutia M.D. Director [facility] Permit #[id number] 16 Because ethnic data is not always readily available, this report includes an eGFR for both -Americans and non- Americans. The National Kidney Disease Education Program (NKDEP) does not endorse the use of the MDRD equation for patients that are not between the ages of 18 and 70, are , have extremes of body size, muscle mass, or nutritional status, or are non- or non-. According to the National Kidney Foundation, irrespective of diagnosis, the stage of the disease is based on the level of kidney function: Stage Description GFR(mL/min/1.73 m(2)) 1 Kidney damage with normal or decreased GFR 90 2 Kidney damage with mild decrease in GFR 60-89 3 Moderate decrease in GFR 30-59 4 Severe decrease in GFR 15-29 5 Kidney failure <15 (or dialysis) 17 NO MRSA ISOLATED 18 ---- RUN DATE: 09/11/09 [facility] NMI LIVE PAGE 1 RUN TIME: 4 Specimen Inquiry RUN USER: INTERFACE -- Name: ELSY MORELOS Status: DIS IN Re09/07/09 Age/Sex: 54/M Unit#: [id number] Location: [facility] : 59 -- Specimen: [id number] SOUKaterin Spec Date: 09/07/[address]: Patrice cruz MD Spec Type: SURGICAL P Received: 09/08/09-1127 Copies to: SPECIMEN C7-T1 DISC HISTORY PRE-OP DIAGNOSIS: C7-T1 herniated disc. GROSS DESCRIPTION The specimen is received in formalin labelled Elsy Morelos, C7-T1 Disc, and consists of multiple fragments of hebert-harrington, fibrous tissue measuring in aggregate 2.5 x 2.0 x 1.5 cm. Mirror Framer section, one cassette. DIAGNOSIS Intervertebral disc, C7-T1, discectomy: Intervertebral disc material with degenerative features. Signed Electronically by: ADRIAN URRUTIA MD 09/11/09 1343 -- -- DEPARTMENT OF PATHOLOGY, [address] [place] [address] [facility] Permit #[id number] Adrian Urrutia M.D. Director Ap Cook M.D. Substation Operator Chief Dir hughesor -- 19 SDS 09/07 20 Anion gap measurement may be of limited value in the presence of any alkalosis, especially in a combined acid base disorder. . 21 Note change in reference range as of 12/17/07. The change was based on recommendations from the [place] [employer]. 22 Please note change in reference range effective 07 . 23 Because ethnic data is not always readily available, this report includes an eGFR for both -Americans and non- Americans. The National Kidney Disease Education Program (NKDEP) does not endorse the use of the MDRD equation for patients that are not between the ages of 18 and 70, are , have extremes of body size, muscle mass, or nutritional status, or are non- or non-. According to the National Kidney Foundation, irrespective of diagnosis, the stage of the disease is based on the level of kidney function: Stage Description GFR(mL/min/1.73 m(2)) 1 Kidney damage with normal or decreased GFR 90 2 Kidney damage with mild decrease in GFR 60-89 3 Moderate decrease in GFR 30-59 4 Severe decrease in GFR 15-29 5 Kidney failure <15 (or dialysis) 24 PREADMISSION TESTING SAMPLES FOR BLOOD BANK WILL BE HELD FOR 14 DAYS FROM THE DATE OF COLLECTION *IF* THE FOLLOWING CRITERIA ARE MET: 1) THE PATIENT HAS *NOT* BEEN IN THE LAST 3 MONTHS. 2) THE PATIENT HAS *NOT* BEEN TRANSFUSED IN THE LAST 3 MONTHS. PREADMISSION TESTING SAMPLES WILL *NOT* BE HELD FOR 14 DAYS FROM PATIENTS WHO IN THE LAST 3 MONTHS: 1) HAVE BEEN 2) HAVE BEEN TRANSFUSED THESE PATIENTS *MUST* BE COLLECTED WITHIN 3 DAYS OF THE SURGERY DATE. 25 ---- RUN DATE: 07/25/08 [facility] NMI LIVE PAGE 1 RUN TIME: 1602 Specimen Inquiry RUN USER: INTERFACE -- [id number] Status: DIS IN Re07/10/08 Age/Sex: 52/M Unit#: [id number] Location: [facility]. : [birth year] -- Specimen: [id number] [facility] Spec Date: 07/13/[address]: Patrice cruz MD Spec Type: SURGICAL P Received: 07/14/08-1812 Copies to: SPECIMEN C6-7, C7-T1 LAMINA HISTORY PRE-OP DIAGNOSIS: Left C7-T1 and C6-7 severe foraminal stenosis. GROSS DESCRIPTION he specimen is received in formalin labelled Elsy Morelos, C6-7, C7-T1 Lamina, and consists of multiple, irregular, hebert and brown-red bone fragments measuring 4.2 x 2.5 x 0.7 cm. in aggregate. Mirror Framer section, one cassette after decal. 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 Signed Electronically by: ADRIAN URRUTIA MD 07/25/08 1606 -- -- DEPARTMENT OF PATHOLOGY, [address] [place] [address] [facility] Permit #[id number] Adrian Urrutia M.D. Director Ap Cook M.D. Substation Operator Chief Dir timothy -- 26 IgG band(s) ([place]): None Detected 27 IgM band(s) ([place]): None Detected 28 Specific serologic response to B. burgdorferi is not detected, but cannot rule out early infection during which low or undetectable antibody levels to B. burgdorferi may be present. If clinically indicated, a new serum specimen should be submitted in 7-14 days. Western blot should only be ordered on specimens that are positive or equivocal by a FDA-licensed Lyme disease antibody screening test (e.g., EIA). CDC criteria require >=5 bands for IgG or >=2 bands for IgM for the Western blot to be considered positive. Test Performed by: [facility] Dpt of Lab Med and Pathology [address] [place] [id number] Professor Of Graphic Design: Xavier White III, M.D. 29 VELMA VALUE=2.01 ( OF 04/03/07 Recommended INR for Patients on Oral Anticoagulants Prophylaxis 2.0 - 3.0 Treatment of thrombosis 2.0 - 3.0 Prevention of embolism 2.0 - 3.0 Prevention of embolism from prosthetic heart valves 2.5 - 3.5 30 PLEASE NOTE NEW REFERENCE RANGE EFFECTIVE 07. 31 Anion gap measurement may be of limited value in the presence of any alkalosis, especially in a combined acid base disorder. . 32 Note change in reference range as of 12/17/07. The change was based on recommendations from the [place] [employer]. 33 Please note change in reference range effective 07 . 34 Note change in reference range as of 12/17/07. The change was based on recommendations from the [place] [employer]. 35 THERAPEUTIC TARGET FOR THE TREATMENT OF DIABETES MELLITUS PATIENTS IS <7% HBA1C, AND IN SELECTIVE PATIENTS <6.0%. PLEASE REFER TO [place] [employer] DIABETIC CARE GUIDELINES FOR FURTHER INFORMATION. 36 Anion gap measurement may be of limited value in the presence of any alkalosis, especially in a combined acid base disorder. . 37 Note change in reference range as of 12/17/07. The change was based on recommendations from the [place] [employer]. 38 Please note change in reference range effective 07 . 39 Neutrophilia % Lymphopenia % 40 Anion gap measurement may be of limited value in the presence of any alkalosis, especially in a combined acid base disorder. . 41 Note change in reference range as of 12/17/07. The change was based on recommendations from the [place] [employer]. 42 Please note change in reference range effective 07 . 43 Anion gap measurement may be of limited value in the presence of any alkalosis, especially in a combined acid base disorder. . 44 Note change in reference range as of 12/17/07. The change was based on recommendations from the [place] [employer]. 45 Please note change in reference range effective 07 . 46 ---- RUN DATE: 01/19/08 [facility] NMI LIVE PAGE 1 RUN TIME: 1715 Specimen Inquiry RUN USER: INTERFACE -- Name: PATRICIAELSY [facility]#: [id number] Status: [facility] Re01/14/08 Age/Sex: 52/M Unit#: [id number] Location: [facility] : [birth year] -- Specimen: [id number] [facility] Spec Date: 01/14/[address]: Patrice cruz MD Spec Type: SURGICAL P Received: 01/15/0809 Copies to: SPECIMEN BONE C5-6,C6-7 RIGHT CERVICAL HISTORY PRE-OP DIAGNOSIS: Cervical stenosis C5-6,C6-7 GROSS DESCRIPTION The specimen is received in formalin labelled Elsy Morelos, Bone Cervical Right C5-6, C6-7, and consists of multiple fragments of hebert-brown tissue measuring in aggregate 2.5 x 2.0 x 0.4 cm. Submitted entirely after decalcification in one cassette. DIAGNOSIS Bone, C5-6, C6-7, resection: Fragments of bone and cartilage tissue with reactive and degenerative features. Signed Electronically by: ADRIAN URRUTIA MD 01/19/08 9352 -- -- DEPARTMENT OF PATHOLOGY, [address] [place] [address] [facility] Permit #[id number] Adrian Urrutia M.D. Director of Laboratories -- 47 ---- RUN DATE: 12/14/07 [facility] NMI LIVE PAGE 1 RUN TIME: 1506 Specimen Inquiry RUN USER: INTERFACE -- Name: ELSY MORELOS Status: [facility] Re12/10/07 Age/Sex: 52/M Unit#: [id number] Location: [facility] : 59 -- Specimen: [id number] SOUT Spec Date: 12/10/[address]: Patrice cruz MD Spec Type: SURGICAL P Received: 12/11/07 Copies to: SPECIMEN C5-6, C6-7 DISC HISTORY PRE-OP DIAGNOSIS: Cervical stenosis GROSS DESCRIPTION The specimen is received in formalin labelled Elsy Morelos, C5-6, C6-7 Disc, and consists of multiple, hebert, harrington, irregular, fibrous, soft tissue fragments measuring 3.3 x 2.0 x 0.7 cm., in aggregate membership sales representative section one cassette. DIAGNOSIS Intervertebral disc, C5-6, C6-7, discectomy - Intervertebral disc material with myxoid degeneration. Signed Electronically by: ADRIAN URRUTIA MD 12/14/07 1506 -- -- DEPARTMENT OF PATHOLOGY, [address] [address] [facility] Permit #[id number] Adrian Urrutia M.D. Director of Laboratories -- 48 [id number] COR GREEN #6 TRANSFUSED 12/10/07 0720 49 [id number] COR GREEN #7 TRANSFUSED 12/10/0720 50 [id number] TISSUE KIT TRANSFUSED 12/10/07719 51 SURGERY 12/10/07 52 Anion gap measurement may be of limited value in the presence of any alkalosis, especially in a combined acid base disorder. . 53 Please note change in reference range effective 07 . 54 PREADMISSION TESTING SAMPLES FOR BLOOD BANK WILL BE HELD FOR 14 DAYS FROM THE DATE OF COLLECTION *IF* THE FOLLOWING CRITERIA ARE MET: 1) THE PATIENT HAS *NOT* BEEN IN THE LAST 3 MONTHS. 2) THE PATIENT HAS *NOT* BEEN TRANSFUSED IN THE LAST 3 MONTHS. PREADMISSION TESTING SAMPLES WILL *NOT* BE HELD FOR 14 DAYS FROM PATIENTS WHO IN THE LAST 3 MONTHS: 1) HAVE BEEN 2) HAVE BEEN TRANSFUSED THESE PATIENTS *MUST* BE COLLECTED WITHIN 3 DAYS OF THE SURGERY DATE. Procedures Date Code Description Status 12/25/2016 26076 EEG Recording Awake & Drowsy Completed 12/22/2016 50537 ECHO Transthorasic Realtime 2D W Doppler & Color Flow Completed Hosp 12/22/2016 80623 EKG, Interpretation Only Completed 06/12/2016 35486 EEG Recording Awake & Drowsy Completed 02/28/2014 57598 EEG Recording Awake & Asleep Completed 02/20/2014 41529 EKG, Interpretation Only Completed 02/17/2014 91356 Craniectomy, Trephination,Bone Flap For Exc Meningioma, Completed Supratent 02/11/2014 49614 EKG, Interpretation Only Completed 11/06/2012 59801 Treadmill Interp/Report Only Completed 11/06/2012 96781 Stress Test Supervsn W/Out I/R Completed 09/23/2012 98615 Rad Exam; Ankle Comp Completed 09/23/2012 13603 Rad Exam; Ankle Comp Completed 09/10/2012 66589 Arthrotomy,Ankle W/JT Exploratn W Or W/O Biopsy, W Or Completed W/O Foreign 09/10/2012 63856 Arthrotomy,Ankle W/JT Exploratn W Or W/O Biopsy, W Or Completed W/O Foreign 07/08/2012 11512 Rad Exam; Foot Comp Completed 07/08/2012 14362 Rad Exam; Ankle Comp Completed 04/17/2011 33355 Rad Exam; Foot Comp Completed 04/17/2011 26405 Rad Exam; Ankle Limited Completed 10/24/2009 81167 Laminotomy;Reexploration One Interspace: Cervical Completed 09/07/2009 75616 Arthrodesis, Anterior Cervical C2 And Below Completed 09/07/2009 14139 Anterior Instrumentation 2-3 Vertebral Segments Completed 09/07/2009 55831 Application Of Spinal Device Completed 09/07/2009 23981 Discectomy,W/Decomp SP Cord/Nerve Root;Cervical Single Completed Interspace 08/28/2009 [id number] Mammogram Completed 07/13/2008 11602 Laminotomy;Reexploration One Interspace: Cervical Completed 07/13/2008 88868 Laminotomy; Each Addl Cervical Interspace Completed 01/14/2008 29673 Laminotomy; Each Addl Cervical Interspace Completed 01/14/2008 10259 Laminotomy;Reexploration One Interspace: Cervical Completed 01/14/2008 42490 Laminotomy;Reexploration One Interspace: Cervical Completed 12/10/2007 63560 Discectomy; Cervical Each Addl Interspace Completed 12/10/2007 36189 Discectomy; Cervical Each Addl Interspace Completed 12/10/2007 46945 Discectomy,W/Decomp SP Cord/Nerve Root;Cervical Single Completed Interspace 12/10/2007 01435 Anterior Instrumentation 2-3 Vertebral Segments Completed 12/10/2007 39538 Arthrodesis W/M Completed 12/10/2007 65295 Arthrodesis W/M Completed 12/10/2007 61895 Arthrodesis, Anterior Cervical C2 And Below Completed 12/10/2007 Allograft For Spine Surgery,Structural (Bone Bank) Completed 12/10/2007 Allograft For Spine Surgery,Structural (Bone Bank) Completed 12/07/2007 66484 EKG, Interpretation Only Completed 09/03/2002 80010 EKG, Interpretation Only Completed Encounters Type Date Location Provider Dx Diagnosis Office Visit 04/08/2018 Neurohospitalist Moris Brush, G40.209 Local-rel 8:00a Fred symptc epi w cmplx prt seiz,not ntrct,w/o stat epi Office Visit 01/23/2018 [facility] Dahlia Brush, G40.209 Local-rel 8:00a Services Of [facility] Fred symptc epi w cmplx prt seiz,not ntrct,w/o stat epi 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 T42.6x5D Adverse effect of antiepileptic and sed-hypntc drugs, subs Office Visit 12/23/2017 [facility] [place] Dahlia Brush, G40.209 Local-rel 9:45a Neurologic Serv Of Fred symptc epi w [facility] cmplx prt seiz,not ntrct,w/o stat epi 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 G40.109 Local-rel symptc epi w simp prt seiz,not ntrct, w/o stat epi R51 Headache R41.89 Oth symptoms and signs w cognitive functions and awareness R29.6 Repeated falls Office Visit 06/24/2016 8:30a [facility] Ann Lozano2.0 Benign neoplasm Services Of Demetris Ibarra of cerebral meninges G40.109 Local-rel symptc epi w simp prt seiz,not ntrct, w/o stat epi R51 Headache R41.89 Oth symptoms and signs w cognitive functions and awareness Office Visit 12/20/2015 2:15p [facility] Dahlia Brush 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 Following Surgery Of The Nervous System, NEC 784.0 Headache V45.89 Postsurgical Status Other Office Visit 05/04/2014 2:00p [place] Marlin Brush 225.2 Benign Neoplasm Services Of Demetris Ibarra Cerebral Meninges 345.80 Epilepsy Other Forms Recurrent Seizures W/O Intractable 311 Depressive Disorder Not Elsewhere Spec Office Visit 04/06/2014 [facility] Dahlia rBush, 225.2 Benign 2:00p Clinic Fred Neoplasm Cerebral Meninges 345.80 Epilepsy Other Forms Recurrent Seizures W/O Intractable 311 Depressive Disorder Not Elsewhere Spec Office Visit 03/16/2014 11:00a [facility] Dahlia Brush 225.2 Benign Neoplasm Services Of [facility] Fred Cerebral Meninges 345.80 Epilepsy Other Forms Recurrent Seizures W/O Intractable 386.10 Vertigo Peripheral Unspec 275.2 Metabolic Disorder Magnesium 300.00 Anxiety State Unspec Office Visit 02/28/2014 [place] Brush, 345.50 Local-Related 8:57a Neurologic Fred Epilepsy W/Simple Services Of [facility] Part Seizure W/O Intractable 348.5 Cerebral Edema 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 Cerebral Hospitalists Meninges 338.29 Other Chronic Pain 250.00 Diabetes Mellitus W/O Compl Type II Or Unspec Controlled 401.9 Hypertension Unspec Office Visit 02/18/2014 8:00p [facility] Ally Jesse, 225.2 Benign Neoplasm Assoc,luiz N.P. Cerebral Hospitalists Meninges 338.29 Other Chronic Pain 250.00 Diabetes Mellitus W/O Compl Type II Or Unspec Controlled 401.9 Hypertension Unspec Office Visit 02/08/2014 [facility] Patrice Dallas 225.2 Benign Neoplasm 11:20a Services Of Demetris Zamora M.D. Cerebral Meninges Office Visit 08/18/2013 [facility] Destiny Landa, 724.2 Lumbago 10:30a Assflori,luiz N.P. Hospitalists Office Visit 08/17/2013 [facility] Yakov Olivo 724.2 Lumbago 10:20a luiz Kahn II, M.D. Hospitalists Office Visit 03/12/2013 [facility] Patrice [place] 723.4 Brachial 1:20p Services Of [facility] Fred Zamora Neuritis Or Radiculitis NOS Office Visit 11/07/2012 [facility] Yasmin George, 786.51 Pain Precordial 9:10a Assluiz ruby M.D. 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 W/O Compl Type II Hospitalists Or Unspec Controlled Office Visit 10/24/2009 [facility] 250.00 Diabetes Mellitus 2:30a luiz Kahn M.D. W/O Compl Type II Hospitalists Or Unspec Controlled Office Visit 10/23/2009 [facility] 250.00 Diabetes Mellitus 2:30a luiz Kahn M.D. W/O Compl Type II Hospitalists Or Unspec Controlled Office Visit 10/21/2009 [facility] 250.00 Diabetes Mellitus 3:15a luiz Kahn M.D. W/O Compl Type II Hospitalists Or Unspec Controlled Office Visit 10/19/2009 [facility] 250.00 Diabetes Mellitus 2:45a luiz Kahn M.D. W/O Compl Type II Hospitalists Or Unspec Controlled Office Visit 10/18/2009 [facility] 250.00 Diabetes Mellitus 3:45a Assocluiz M.D. W/O Compl Type II Hospitalists Or Unspec Controlled Office Visit 08/31/2009 Neurosurgery Patrice JKayla 722.0 Intervertebral Disc 3:00p Services Of Demetris Zamora M.D. Displacement Cervical W/O Myelopathy Office Visit 07/17/2009 Neuro[facility] Patrice Dallas 723.4 Brachial Neuritis 4:20p Services Of Demetris Zamora M.D. Or Radiculitis NOS Office Visit 05/15/2009 Neuro[facility] Patrice Dallas 716.91 Arthropathy Unspec 4:00p Services Of Demetris Zamora M.D. Shoulder Region Office Visit 04/26/2009 Orthopedic Kumar Lobo, 716.91 Arthropathy Unspec 9:00a Services Of Mami Ibarra Shoulder Region Office Visit 11/01/2008 Neurosurgery Patrice Dallas 722.0 Intervertebral Disc 10:40a Services Of Demetris Zamora M.D. Displacement Cervical W/O Myelopathy Office Visit 07/08/2008 Neurosurgery Patrice Dallas 723.4 Brachial Neuritis 11:40a Services Of Demetris Zamora M.D. Or Radiculitis NOS Office Visit 06/27/2008 Neurosurgery Patrice Dallas 723.4 Brachial Neuritis 2:40p Services Of Demetris Zamora M.D. Or Radiculitis NOS Office Visit 06/13/2008 Neurosurgery Patrice Dallas 723.4 Brachial Neuritis 11:00a Services Of Demetris Zamora M.D. 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 Cervical Region Office Visit 05/02/2008 Neurosurgery Patrice Dallas 723.0 Stenosis Spinal 10:20a Services Of Demetris Zamora M.D. 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 Cervical Region Office Visit 12/25/2007 Neurosurgery Patrice J. 3:00p Services Of Demetris Zamora M.D. Office Visit 12/03/2007 Neurosurgery Patrice Dallas 723.4 Brachial Neuritis 9:40a Services Of Demetris Zamora M.D. 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 Or Radiculitis NOS Office Visit 11/19/2007 1:00p Neurosurgery Patrice Dallas 723.4 Brachial Neuritis Services Of Demetris Zamora M.D. Or Radiculitis NOS 782.0 Skin Sensation Disturbance 729.5 Pain In Limb Plan of Treatment Future Appointment(s):12/09/2018 8:30 am - Dahlia Brush M.D. at [id number]/10/2018 - Dahlia Brush M.D.G40.209 Localization- related (focal) (partial) symptomatic epilepsyFollow up:6 MONTHSRecommendations: Will call you with level results. If it looks good, will stay at 150mg twice a day (and will send innew script for 150mg pills so that you will only need to take 1 in am and 1 in pm)G25.1 Drug-induced szxlitJ87.0 Benign neoplasm of cerebral meninges
[2018-06-25 14:36] VITALS: BP 154/108
--- NOTE | 2018-06-25 15:02 | UC ---
Head Injury HPI - HPI Summary HPI Summary: 62-year-old male comes in with a chief complaint of headache and neck pain. This all started after a fall while going on a ambulance call on June 19, 2018. Patient was getting out of his truck and he slipped and fell backwards striking the back of his head. He almost passed out but did not during the episode. He felt off-balance and lightheaded immediately after the episode. The lightheadedness has gone away. Headache 8 out of 10 has been constant ever since the fall. The pain is primarily in the back of the head. Neck also has pain. Patient does take aspirin everyday. He's tried some migraine over-the- counter medications to include acetaminophen and it does not help with the pain. Started a ringing in is ears. Denies any photophobia or double vision or difficulty with speech. No nausea or vomiting. He is slightly off balance but he has a chronic problem with his left leg being numb after a back injury years ago. He cannot tell if his been off balance is worse than normal. - History Of Current Complaint Chief Complaint: UCHeadInjury Stated Complaint: HEADACHE- HEAD INJURY Time Seen by Provider: 06/25/18 14:45 Pain Intensity: 8 - Allergies/Home Medications Allergies/Adverse Reactions: Allergies Allergy/AdvReac Type Severity Reaction Status Date / Time No Known Allergies Allergy Verified 06/25/18 14:36 Home Medications: Home Medications Aspirin/Acetaminophen/Caffeine [Excedrin Migraine Caplet] 1 each PO Q12HR PRN [History Confirmed 06/25/18] lamoTRIgine [Lamotrigine] 150 mg PO BID 06/25/18 [History Confirmed 06/25/18] PMH/Surg Hx/FS Hx/Imm Hx Previously Healthy: Yes - Chronic back pain Endocrine History: Diabetes, Dyslipidemia Cardiovascular History: Hypertension Neurological History: Migraine - Surgical History Surgical History: Yes Surgery Procedure, Year, and Place: 8 LUMBAR SURGERIES WITH RODS,6 CSP SURGERYS WITH RODS, FEEDING TUBE during an episode of pancreatitis AND REMOVAL,LT HUMERUS ORIF, left ankle surgery,RT SHOULDER REPLACEMENT; CRANIOTOMY- REMOVAL OF BRAIN TUMOR 02/17/14 - Family History Known Family History: Positive: Non-Contributory - Social History Alcohol Use: Weekly Alcohol Amount: 2/week Substance Use Type: Other Substance Use Comment - Amount & Last Used: cbd oil Smoking Status (MU): Never Smoked Tobacco - Immunization History Most Recent Influenza Vaccination: fall 2013 Most Recent Tetanus Shot: 2008 Most Recent Pneumonia Vaccination: states has had previously Review of Systems All Other Systems Reviewed And Are Negative: Yes Constitutional: Positive: Negative Skin: Positive: Other - healed abrasion on occiput Eyes: Positive: Negative ENT: Positive: Other - ringing in ears Respiratory: Positive: Negative Cardiovascular: Positive: Negative Gastrointestinal: Positive: Negative Motor: Positive: Negative Neurovascular: Positive: Other - see hpi Musculoskeletal: Positive: Other: - see hpi Neurological: Positive: Headache, Other - see hpi Psychological: Positive: Negative Is Patient Immunocompromised?: No Physical Exam Triage Information Reviewed: Yes Appearance: Well-Appearing, No Pain Distress, Well-Nourished Vital Signs: Initial Vital Signs Temp 97.3 F 06/25/18 14:31 Pulse 73 06/25/18 14:31 Resp 18 06/25/18 14:31 BP 154/108 06/25/18 14:31 Pulse Ox 100 06/25/18 14:31 Vital Signs Reviewed: Yes Eye Exam: Normal Eyes: Positive: Conjunctiva Clear, Other: - perrla/eomi No photophobia. ENT: Positive: Other - TMs with scarring. No hyphema. Neck: Positive: Supple, Other: - Mild tenderness to palpation midline Respiratory: Positive: Lungs clear, Normal breath sounds, No respiratory distress Cardiovascular: Positive: RRR Musculoskeletal Exam: Normal Musculoskeletal: Positive: Strength Intact, ROM Intact Neurological Exam: Normal Neurological: Positive: Alert, Muscle Tone Normal Psychological: Positive: Age Appropriate Behavior Skin Exam: Normal Head Injury Course/Dx - Course Course Of Treatment: Patient Name: ELSY GOMEZ Medical Record#: [id number]. Ordering Physician: Joshua Martinez MD Acct.#: [id number]. : 1955 Age: 62 Sex: M Location: [facility]. Exam Date: 1456 ADM Status: REG ER. Order Information: CT SPINE CERVICAL W/O. Accession Number: [id number]. CPT: 23653. HISTORY: pain s/p fall 06/19/18. COMPARISONS: October 23, 2009. TECHNIQUE: Multiple contiguous axial CT scans were obtained of the cervical spine without. intravenous contrast, with coronal and sagittal multiplanar reformations. FINDINGS: BRAIN: The visualized brain is unremarkable. CENTRAL CANAL: Evaluation of the central canal is limited on CT technique; however, there. is no obvious canalicular mass or epidural hemorrhage. ALIGNMENT: There is straightening of the cervical lordosis. VERTEBRAL BODIES: The patient is status post anterior cervical fusion at C5, C6 , C7. There. is no appreciable hardware failure or osteolysis. There is no displaced fracture. There is. mild anterolateral marginal osteophyte formation. JOINTS: There is diffuse uncovertebral and facet osteoarthritis. MUSCULATURE: Unremarkable. INTERVERTEBRAL DISCS: There is diffuse loss of intervertebral disc height. AXIAL IMAGES: C2-C3: There is moderate right neuroforaminal narrowing. There is no osseous central canal. stenosis. C3-C4: There is a broad-based disc osteophyte complex with moderate to severe bilateral. neural foraminal narrowing. There is mild narrowing of the central canal. C4-C5: There is bilateral uncovertebral hypertrophy. There is severe bilateral neural. foraminal narrowing. There is no significant central canal stenosis. C5-C6: There is mild right neural foraminal narrowing. There is no osseous central canal. stenosis. There is mild bilateral neural foraminal narrowing. There is no significant. osseous central canal stenosis. C6-C7: There is mild bilateral neural foraminal narrowing. There is no osseous central. canal stenosis. C7-T1: There is moderate bilateral neural foraminal narrowing. There is no osseous central. canal stenosis. SOFT TISSUES: The visualized soft tissues of the neck are unremarkable. The prevertebral. fat stripe is preserved. OTHER: None. IMPRESSION: STATUS POST ANTERIOR CERVICAL FUSION. DEGENERATIVE DISC DISEASE AND OSTEOARTHRITIS DESCRIBED ABOVE. NO ACUTE OSSEOUS INJURY TO THE CERVICAL SPINE. . <Electronically signed by Davidson Almeida MD in OV> 06/25/18 1539. Patient Name: ELSY GOMEZ Medical Record#: [id number]. Ordering Physician: Joshua Martinez MD Acct.#: [id number]. : 1955 Age: 62 Sex: M Location: [facility]. Exam Date: 06/25/186 ADM Status: REG ER. Order Information: CT BRAIN WO. Accession Number: [id number]. CPT: 56707. Indication: Head injury. CT of the brain was performed without IV contrast. Ventricular structures are midline. No midline shift is noted. The extra-axial spaces are. unremarkable. There is no evidence of intracranial hemorrhage. Hypodensity in the left. frontal lobe likely represents encephalomalacia from prior meningioma removal. Left. frontal craniotomy is noted. No intraventricular hemorrhage is noted. No evidence of scalp. hematoma is noted. No fracture of the skull or calvarium is noted. IMPRESSION: Presumed resection of meningioma from the left frontal lobe with patient. status post left frontal craniotomy. No intracranial hemorrhage is noted. . < Electronically signed by Karuna Orozco MD in OV> 06/25/18 1533. I discussed the CT results with the patient. Here in clinic the plan is to give the patient shot of Toradol. He has seen Dr. Strickland in neurology in the past. They do a prescription for Fioricet. That is going to give neurology call for follow-up there. We discussed that if anything got worse he needs to get reevaluated right away. - Differential Dx/Diagnosis Provider Diagnosis: Cervical strain, Head injury, Concussion Discharge - Sign-Out/Discharge Documenting (check all that apply): Patient Departure All imaging exams completed and their final reports reviewed: Yes - Discharge Plan Condition: Stable Disposition: HOME Prescriptions: Butalb/Acetamin/Caff TAB* [Fioricet TAB*] 1 tab PO Q6H PRN #20 tab MDD 4 PRN Reason: Headache Patient Education Materials: Cervical Strain (ED), Head Injury (ED), Concussion (ED) Referrals: Ynes Adames NP [Primary Care Provider] - Dahlia Brush MD [Medical Doctor] - Additional Instructions: FOLLOW UP WITH NEUROLOGY. GET RECHECKED FOR ANY WORSENING OF YOUR CONDITION; WEAKNESS, NUMBNESS, PAIN, CHANGES IN VISION OR SPEECH, VOMITING, DIFFICULTY WITH BALANCE OR QUESTIONS OR CONCERNS. - Billing Disposition and Condition Condition: STABLE Disposition: Home
[2018-06-25] MEDS ORDERED: Ketorolac INJ* 60 MG/2 ML VIAL IM ONE (15:49)
== END 2018-06-25 16:10 | disposition home or self-care (01) ==
LOC: UCEAST 13:59
DX: S06.0X0A Concussion without loss of consciousness, initial encounter (principal); S16.1XXA Strain of muscle, fascia and tendon at neck level, initial encounter; E11.9 Type 2 diabetes mellitus without complications; I10 Essential (primary) hypertension; V58.4XXA Person boarding or alighting a pick-up truck or van injured in noncollision transport accident, initial encounter; Y92.9 Unspecified place or not applicable
CPT/HCPCS: 70450; 72125; 96372; 99212; G0463; J1885

== ENCOUNTER 2018-10-08 17:14 | Observation (INO) | payer MEDICARE, BC ==
[2018-10-08] MEDS ORDERED: Ondansetron INJ* 2 MG/ML VIAL IV ONE (17:56)
[2018-10-08] MEDS ORDERED: Famotidine IV * 20 MG in NS 0.9% 100 ML* 100 ML IVPB ONE (17:56)
[2018-10-08] MEDS ORDERED: Lactated Ringers 1000 ML Bag* 1,000 ML IV SCH (18:00)
[2018-10-08 18:28] LABS: ABS Lymphocytes 0.5 10^3/ul (1.0-4.8); ABS Monocytes 0.3 10^3/ul (0-0.8); ABS Neutrophils 3.8 10^3/ul (1.5-7.7); Eosinophil % 0.7 %; Hematocrit 35 % (42-52); Hemoglobin 11.8 g/dL (14.0-18.0); Lymphocyte % 10.8 %; Mean Corpuscular HGB Conc 33 g/dL (31-36); Mean Corpuscular Hemoglobin 28 pg (27-31); Mean Corpuscular Volume 85 fL (80-94); Mean Platelet Volume 8.9 fL (7.4-10.4); Platelet Count 119 10^3/uL (150-450); Red Blood Count 4.17 10^6 /uL (4.18-5.48); Red Cell Distribution Width 16 % (10-15); White Blood Count 4.6 10^3/uL (3.5-10.8)
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
[2018-10-08 18:39] LABS: Activated Partial Thrombo Time 35.6 seconds (26.0-38.0); INR 0.97 (0.82-1.09)
[2018-10-08 18:53] LABS: Troponin I 0.01 ng/mL (<0.04)
[2018-10-08 18:59] LABS: Alcohol < 10 mg/dL (<10)
[2018-10-08 19:00] LABS: Albumin 4.1 g/dL (3.2-5.2); Anion Gap 7 mmol/L (2-11); CO2 Carbon Dioxide 28 mmol/L (22-32); Calcium 9.6 mg/dL (8.6-10.3); Chloride 105 mmol/L (101-111); Magnesium 1.9 mg/dL (1.9-2.7); Potassium 4.9 mmol/L (3.5-5.0); Sodium 140 mmol/L (135-145)
[2018-10-08 19:06] LABS: ALT 12 U/L (7-52); AST 21 U/L (13-39); Albumin/Globulin Ratio 1.5 (1-3); Alkaline Phosphatase 72 U/L (34-104); BUN/Creatinine Ratio 17.1 (8-20); Blood Urea Nitrogen 20 mg/dL (6-24); EGFR African American 76.7 (>60); EGFR Non-African American 63.4 (>60); Globulin 2.7 g/dL (2-4); Glucose 142 mg/dL (70-100); Total Protein 6.8 g/dL (6.4-8.9)
[2018-10-08] MEDS ORDERED: Iodixanol* (CONTRAST) 320 MG/ML 100 ML SDV IV ONE (19:12)
--- NOTE | 2018-10-08 19:18 | ED ---
Progress - Progress Note Progress Note: Pt is a sign out from Dr. Conner to Dr. Morales at shift change on 10/08/18 at 1913 pending lab results, CTA of the head and neck, CT brain, and a Chest AP. - Results/Orders Results/Orders: CTA of the head/neck found: 1. Occluded left vertebral artery. 2. Minimally atherosclerotic nonstenotic bilateral common carotid arteries. 3. Normal head CTA. 4. Sequela from prior meningioma removal in the left frontal lobe with residual meningioma versus dural scarring along the midline falx. 5. Mild chronic small vessel ischemic disease. ED Physician has reviewed this report. CT of the Brain found: 1. No acute intracranial abnormality. 2. Left frontal lobe changes from prior meningioma removal. 3. Mild chronic small vessel ischemic disease. ED Physician has reviewed this report. CXR shows: No acute processes. Pending official review. - EKG/XRAY/CT EKG: NSR - 79 BPM, rhythm - Sinus, no ST T wave changes Comments: Sinus rhythm at 79 BPM and Normal axis, Normal interval, No ischemic change Re-Evaluation - Re-Evaluation First Eval Re-Evaluation Time: 21:15 Change: Improved Comment: Pt was able to walk around the ED with a steady gait and was informed of his imaging results. Course/Dx - Course Course Of Treatment: Pt is a sign out from Dr. Conner to Dr. Morales at shift change on 10/08/18 at 1913 pending lab results, CTA of the head and neck, CT brain, and a Chest AP. Abnormal lab values include RBC, Hgb, Hct, RDW, Pit Count , Absolute Lymphs, Glucose, POC Glucose, and Lactic Acid of 2.3. The pt received an EKG which showed a Sinus rhythm at 79 BPM and Normal axis, Normal interval, and No ischemic changes. The Pt also received a CT of the head/neck and a brain CT which found: CTA of the head/neck found: 1. Occluded left vertebral artery. 2. Minimally atherosclerotic nonstenotic bilateral common carotid arteries. 3. Normal head CTA. 4. Sequela from prior meningioma removal in the left frontal lobe with residual. meningioma versus dural scarring along the midline falx. 5. Mild chronic small vessel ischemic disease. CT of the Brain found: 1. No acute intracranial abnormality. 2. Left frontal lobe changes from prior meningioma removal. 3. Mild chronic small vessel ischemic disease. The Pt also received a CXR which showed no acute processes and will be admitted to [facility] under the care of Dr. Steward, Hospitalist , for further observations with a Dx of syncope. - Diagnoses Provider Diagnoses: Syncope - Provider Notifications Discussed Care Of Patient With: Irene Steward Time Discussed With Above Provider: 22:17 Instructed by Provider To: Admit As Inpatient Admit/Transition Orders Completed By ED Provider: Yes Discharge - Sign-Out/Discharge Documenting (check all that apply): Patient Departure - admitted, Receiving Sign -Out Receiving patient FROM: Wilmer Conner Patient Received Moderate/Deep Sedation with Procedure: No - Discharge Plan Condition: Stable Disposition: ADMITTED TO [facility] Referrals: Dot Parson [Primary Care Provider] - - Attestation Statements Document Initiated by Scribe: Yes Documenting Scribe: Juan C Fermin Provider For Whom Scribe is Documenting (Include Credential): Chilo Morales MD Scribe Attestation: IJuan C, scribed for Chilo Morales MD on 10/09/18 at 0000. Status of Scribe Document: Ready Consult Consult: At 2114 the pt's Head/Neck CT was discussed with Dr. Jacob, Neurology, who stated that the occlusion of the L vertebral artery is nonsignificant currently. His neuro is currently intact and he was able to walk with a steady gait through the ED. Per Dr. Steward, hospitalist, the pt will be admitted for further observations.
[2018-10-08 19:53] LABS: Urine Appearance Clear; Urine Bilirubin Negative (Negative); Urine Blood Negative (Negative); Urine Color Straw; Urine Glucose Negative (Negative); Urine Ketones Negative (Negative); Urine Nitrite Negative (Negative); Urine Protein Negative (Negative); Urine Specific Gravity 1.008 (1.010-1.030); Urine Urobilinogen Negative (Negative)
[2018-10-08 20:25] LABS: Urine Benzodiazepine Screen None Detected (None Detect); Urine Opiates Screen Presumptive Positive (None Detect)
[2018-10-09] MEDS: Enoxaparin(*) 40 MG/0.4 ML SYR SUBCUT SCH ×2 (01:37→21:58)
[2018-10-09] MEDS ORDERED: Dextrose 50% Syringe 50 ML* 25 GM/50 ML SYRINGE IV PUSH PRN (04:54)
[2018-10-09] MEDS: Insulin LISPRO* 1 UNITS UNIT SUBCUT SCH ×3 (08:22→17:56)
[2018-10-09 08:35] LABS: Hematocrit 33 % (42-52); Hemoglobin 10.9 g/dL (14.0-18.0); Mean Corpuscular HGB Conc 33 g/dL (31-36); Mean Corpuscular Hemoglobin 28 pg (27-31); Mean Corpuscular Volume 84 fL (80-94); Mean Platelet Volume 8.5 fL (7.4-10.4); Platelet Count 106 10^3/uL (150-450); Red Blood Count 3.88 10^6 /uL (4.18-5.48); Red Cell Distribution Width 16 % (10-15); White Blood Count 2.9 10^3/uL (3.5-10.8)
[2018-10-09] MEDS: Pancrelipase CAP* 5,000 UNITS CAP PO SCH ×3 (08:48→16:22)
[2018-10-09] MEDS: lamoTRIgine TAB(*) 100 MG PO SCH ×2 (08:50→21:55)
[2018-10-09] MEDS: Cholecalciferol TAB* 1000 UNITS PO SCH (08:51)
[2018-10-09] MEDS: CMC:Fenofibrate(NF) 145 MG TAB PO SCH (08:51)
[2018-10-09] MEDS: Atorvastatin* 20 MG TAB PO SCH (08:51)
[2018-10-09] MEDS: Pantoprazole TAB * 40 MG TAB PO SCH (08:51)
[2018-10-09] MEDS: Lisinopril TAB* 5 MG PO SCH (08:52)
[2018-10-09] MEDS: Methadone TAB* 10 MG PO SCH ×3 (08:52→21:56)
[2018-10-09 08:56] LABS: Anion Gap 5 mmol/L (2-11); BUN/Creatinine Ratio 14.8 (8-20); Blood Urea Nitrogen 18 mg/dL (6-24); CO2 Carbon Dioxide 28 mmol/L (22-32); Calcium 8.9 mg/dL (8.6-10.3); Chloride 107 mmol/L (101-111); EGFR African American 73.1 (>60); EGFR Non-African American 60.4 (>60); Glucose 97 mg/dL (70-100); Sodium 140 mmol/L (135-145)
[2018-10-09 09:15] LABS: % Iron Saturation 12 % (15-55); Iron 43 ug/dL (50-212); Total Iron Binding Capacity 357 mcg/dL (250-450); Transferrin 255 mg/dL (203-362)
[2018-10-09 09:33] LABS: Prolactin 10.1 ng/mL (1.0-20.0)
--- NOTE | 2018-10-09 09:35 | HP ---
Amended report to correct date of admission. CC: TYRELL Ayers HISTORY AND PHYSICAL: DATE OF ADMISSION: 10/08/2018 PRIMARY CARE PHYSICIAN: TYRELL Ayers. HEALTHCARE PROXY: Chelle, cell phone [phone], home [phone]. CODE STATUS: Full. CHIEF COMPLAINT: Syncope and unresponsiveness. HISTORY OF PRESENT ILLNESS: Mr. Morelos is a 63-year-old man with a history of parasagittal meningioma, status post resection in 2013 and gamma knife surgery in 2016 with coarse complicated by focal seizures after meningioma resection, who is now presenting with an episode of unresponsiveness at home. According to the patient and his Chelle, around 4 p.m. on day of presentation, the patient reported feeling "funny." He further elucidates that he was feeling cold and clammy, a bit woozy, nauseous, and lightheaded with ringing in his ears. While this was going on, he did not feel strong enough to walk, and he had called his who asked the patient to call 911. She was driving to meet him at home at that time. The patient did not call 911 and eventually lost consciousness, which he does not remember. The , on her drive to meet the patient, had called 911 who reached the patient before she did. 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 The patient was unresponsive to vigorous stimulation but was breathing normally. She reports that this episode of unresponsiveness lasted just over 1 hour, including on initial presentation to the ER where he eventually spontaneously awoke. While he was initially confused about his whereabouts, he quickly felt back to his baseline mental status with resolution of his symptoms that he experienced before fainting. The patient's denied convulsive movements, incontinence or tongue biting during this time. The patient reports he has never experienced anything like this before. He had not recently received a stressful news. He reports that he was recently seen by his outpatient neurosurgeon and had a normal brain MRI within the last 2 weeks. Of note, the patient was admitted in November of 2016 with altered mental status that did not present the way his focal seizures usually do. It was thought that this was a presentation of new seizure activity. PAST MEDICAL HISTORY: 1. Parasagittal meningioma, status post resection 2013, subsequent gamma knife 2014. 2. Partial seizures since meningioma resection which generally present as right - sided frozen gaze to the left with right-sided body shaking. 3. 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 4. Diabetes. 5. Lumbosacral spondylosis with myelopathy, status post 8 surgeries over spine and neck, complicated by left footdrop. 6. Bilateral shoulder surgeries. MEDICATIONS: 1. Lamotrigine 150 mg twice a day. 2. Metformin 1000 mg twice a day. 3. Methadone 60 mg 3 times a day. 4. Morphine sulfate 15 mg 3 times a day as needed for pain. 5. Pancreatic enzymes. 6. Fenofibrate 145 mg daily. 7. Dexilant 60 mg daily. 8. Atorvastatin 20 mg daily. 9. Excedrin as needed for headache. 10. Lisinopril 5 mg daily. 11. Fioricet, rare use. ALLERGIES: No known drug allergies. FAMILY HISTORY: Father from lung cancer. Sister from stroke at age 72. SOCIAL HISTORY: The patient lives with his . He denies smoking. He has a few beers a week. 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 His Chelle is his healthcare proxy. PHYSICAL EXAMINATION GENERAL: He is a well-appearing man, in no acute distress, who is alert, interactive, and pleasant. VITAL SIGNS: Afebrile, heart rate 62, blood pressure 157/93, respiratory rate 18, oxygen saturation 100% on room air. HEENT: OP clear. Moist mucous membranes. NECK: Supple. Full range of motion, intact, without pain. No JVD. LUNGS: Clear to auscultation bilaterally. HEART: Regular rate and rhythm. No murmurs, gallops, or rubs. ABDOMEN: Soft, nontender, nondistended. EXTREMITIES: Warm and well perfused. No edema. NEURO: A and O x3. Speech fluent. CN II through XII intact bilaterally. Upper and lower extremities with 5/5 strength. Sensation intact bilaterally. DIAGNOSTIC STUDIES/LAB DATA: Hemoglobin normocytic 11.8 at baseline, platelets 119 at baseline. BMP and coags unremarkable. Lactic acid 2.3, decreased to 0.6 after 1 L of fluids. UA clean. U-tox positive for opiates and cannabinoids. CT Brain without acute intracranial abnormality with left frontal lobe changes from prior meningioma removal and mild chronic small vessel ischemic disease. Head CTA with occluded left vertebral artery and minimally atherosclerotic nonstenotic bilateral carotid arteries. Normal head CTA. EKG: Normal sinus rhythm, rate 79. ASSESSMENT AND PLAN: A 63-year-old man with a history of meningoma, status post resection and gamma knife complicated by focal seizures, pancreatic insufficiency, diabetes, who is presenting after a syncopal episode followed by prolonged unresponsiveness. 1. Syncope. The patient has prodrome typical for vasovagal syncope; however, it would not be typical for him to have prolonged period of unresponsiveness after this. He currently has no physical exam findings or imaging findings to suggest an ischemic event. It is possible that the patient had a seizure event ; however, he did not have postictal state, although he did have mildly elevated lactate on presentation. Neurology was called regarding vertebral artery occlusion seen on head CT and thought this was a nonsignificant finding. The patient has no focal signs of infection and it was noted during event that the patient was hypertensive, so sepsis from infection is very low on differential. For now, we will admit the patient to telemetry and check an echocardiogram in the morning with neuro checks overnight and consider neurology consultation or EEG in the morning. 2. Chronic headaches and back pain. Continue home narcotics, verified on I- STOP, morphine 15 mg 3 times a day as needed for pain with methadone 60 mg 3 times a day. 3. Seizures. Continue home lamotrigine 150 mg twice a day. 4. Pancreatic insufficiency, continue pancreatic enzymes. 5. Diabetes. History of insulin dependence, but notably recently on metformin. We will hold that, especially given recent use of contrast, and start the patient on insulin sliding scale. 7. Cardiovascular disease, primary prevention. Continue home atorvastatin 20 mg daily. 8. Hypertriglyceridemia. Continue home fenofibrate 145 mg daily. 9. Hypertension. Continue home lisinopril 5 mg daily. 10. DVT prophylaxis: Initiate Lovenox 40 mg daily. 11. Code status: Full code. TIME SPENT: Approximately 60 minutes was spent on admission of this patient, more than half of which was spent at bedside for interview and exam. [id number]/[facility] #: [id number] [facility] NETWORKDina
[2018-10-09 09:37] LABS: Ferritin 17.3 ng/mL (24-336)
[2018-10-09 09:41] LABS: Folate 9.66 ng/mL (>3.99)
[2018-10-09] MEDS: Morphine TAB Extended Release (*) 15 MG TAB.ER PO PRN ×3 (11:33→22:03)
[2018-10-09] MEDS ORDERED: Cyanocobalamin INJ * 1,000 MCG/ML VIAL 1 ML VIAL IM ONE (13:34)
--- NOTE | 2018-10-09 14:30 | ECHO ---
*[facility]* [place] [address] Fax #: [phone] Transthoracic Echocardiogram Patient: Jethro, Height: 78 in / Facundo Rosenthal 198.1 cm : 1955 Weight: 240.5 lb / Study Date: 10/09/2018 109.3 kg Age: 63 BP: 145 / 85 Gender: M BMI/BSA: 27.9 kg/m^2 HR: 62 bpm / 2.44 m^2 *Pneumatic Jack Operator: * Nat Narayanan [facility] *Referring Physician: * Joshua Parisi *Reading Physician: * Umair Bhakta MD Indications: Syncope. History: Risk factors: Diabetes mellitus. Parasagittal meningioma s/p resection 2014, seizures. Conclusions Summary: 1. Left ventricle: The cavity size is normal. There is mild concentric hypertrophy. Systolic function is normal. The estimated ejection fraction is 55-60%. Wall motion is normal; there are no regional wall motion abnormalities. 2. Left atrium: The atrium is moderately dilated. 3. Right atrium: The atrium is mildly dilated. 4. Functionally benign heart valves. 5. Aortic root: The aortic root is moderately dilated. 6. Ascending aorta: The ascending aorta is moderately dilated. 7. There is no prior echocardiogram available to compare with at this time. Study data: Transthoracic echocardiogram. Procedure: Transthoracic echocardiography was performed. Image quality was fair. Complete 2D, spectral Doppler, and color flow Doppler. Location: Bedside. Patient status: Inpatient. Patient room number: 420-2. Rhythm: Normal sinus rhythm. Findings Left ventricle: The cavity size is normal. There is mild concentric hypertrophy. Systolic function is normal. The estimated ejection fraction is 55-60%. Wall motion is normal; there are no regional wall motion abnormalities. There is no consistent Doppler evidence of clinically significant diastolic dysfunction. Right ventricle: The cavity size is at the upper limits of normal. Systolic function is normal. Left atrium: The atrium is moderately dilated. Right atrium: The atrium is mildly dilated. Mitral valve: The leaflets are normal thickness. There is trace regurgitation. Aortic valve: The valve is probably trileaflet. The leaflets are mildly thickened. There is no evidence of stenosis. There is no regurgitation. Tricuspid valve: The leaflets are normal thickness. There is trivial regurgitation. Pulmonic valve: Not well visualized. There is no evidence of stenosis. There is no regurgitation. Aorta: Aortic root: The aortic root is moderately dilated. Ascending aorta: The ascending aorta is moderately dilated. Aortic arch: The aortic arch is appears normal. Pericardium: A prominent pericardial fat pad is present. There is no significant pericardial effusion. Pulmonary arteries: Not well visualized. Systolic pressure can not be accurately estimated. Systemic veins: Inferior vena cava: Not well visualized. Measurements Left ventricle Value Ref Aortic valve Value Ref ALIYA, LAX 5.6 cm 4.2 - 5.8 Sarai diam, ED 2.5 cm ----- ESD, LAX 3.8 cm 2.5 - 4.0 Peak v, S 1.49 m/sec ----- FS, LAX 32 % 25 - 43 VTI, S 32.6 cm ----- PW, ED, LAX (H) 1.2 cm 0.6 - 1.0 Mean grad, S 4.0 mm Hg ----- FS 32 % 25 - 43 Peak grad, S 9.0 mm Hg ----- PW, ED (H) 1.2 cm 0.6 - 1.0 LVOT/AV, VTI ratio 0.89 ----- E', lat sarai, TDI 13.2 cm/sec >=10.0 E/e', lat sarai, 5 Mitral valve Value Ref TDI Peak E 0.62 m/sec ----- E', med sarai, TDI 7.9 cm/sec >=7.0 Peak A 0.74 m/sec --- -- E/e', med sarai, 8 Decel time 268 ms ----- TDI Peak E/A ratio 0.8 ----- E', avg, TDI 10.6 cm/sec E/e', avg, TDI 6 <=14 Pulmonic valve Value Ref Peak v, S 0.8 m/sec ----- LVOT Value Ref Peak grad, S 3.0 mm Hg ----- Peak petrona, S 1.23 m/sec VTI, S 29.0 cm Tricuspid valve Value Ref Peak grad, S 6 mm Hg TR peak v 2.4 m/sec <=2.8 Mean grad, S 3 mm Hg Peak RV-RA grad, S 23 mm Hg ----- Ventricular septum Value Ref Aortic root Value Ref IVS, ED (H) 1.2 cm 0.6 - 1.0 Root diam 4.1 cm <4.5 Right ventricle Value Ref Ascending aorta Value Ref ALIYA, LAX 3.7 cm AAo AP diam, S 4.4 cm ----- Pressure, S 31 mm Hg Aortic arch Value Ref Left atrium Value Ref Arch diam 1.9 cm ----- AP dim, ES (H) 4.40 cm 3.00 - 4.00 Decending aorta Value Ref ML dim, A4C 5.5 cm Yvonne peak petrona 0.87 m/sec ----- SI dim, A4C 6.1 cm Vol/bsa, ES, 1-p (H) 47 ml/m^2 12 - 37 Pulmonary artery Value Ref A4C Pressure, S 28.0 mm Hg ----- Vol/bsa, ES, A/L (H) 43 ml/m^2 16 - 34 Right atrium Value Ref SI dim, ES (H) 5.4 cm 3.4 - 5.3 ML dim, ES, A4C (H) 4.8 cm 2.6 - 4.4 SI dim, ES, A4C (H) 5.4 cm 3.4 - 5.3 Estimated RAP 8 mm Hg Legend: (L) and (H) bryan values outside specified reference range. Prepared and electronically signed by Umair Bhakta MD 10/09/2018 14:29
--- NOTE | 2018-10-09 16:07 | PN ---
Subjective Date of Service: 10/09/18 Interval History: Patient is feeling at baseline. Patient does not feel dehydrated, patient has a history of vasovagal syncope when working outside, but has not been doing that recently. Patient Has no focal weakness, patient's headache is at his baseline and responds to his chronic medications. Patient endorses palpitations, full body tremor, tinnitus, and cold sweats during this episode. Patient states he has never had an episode like this before. Family History: Unchanged from Admission Social History: Unchanged from Admission Past Medical History: Unchanged from Admission Objective Active Medications: Atorvastatin Calcium (Lipitor*) 20 mg PO QAM [facility] Last Admin: 10/09/18 08:51 Dose: 20 mg Cholecalciferol (Vitamin D Tab*) 2,[facility] [place] Admin: 10/09/18 08:51 Dose: 2,000 units Cyanocobalamin (Vitamin B12 Tab*) 1,000 mcg PO DAILY [facility] Dextrose (D50w Syringe 50 Ml*) 12.5 gm IV PUSH .FOR FS < 60 - SS PRN PRN Reason: FS < 60 Enoxaparin Sodium (Lovenox(*)) 40 mg SUBCUT Q24H [facility] Last Admin: 10/09/18 01:37 Dose: 40 mg Fenofibrate (Tricor(Nf)) 145 mg PO [facility]; Protocol Last Admin: 10/09/18 08:51 Dose: 145 mg Ferrous Sulfate (Ferrous Sulfate Tab*) 325 mg PO DAILY [facility] Lactated Ringer's (Lactated Ringers 1000 Ml Bag*) 1,000 mls @ 1,000 mls/hr IV .BOLUS [facility] Last Admin: 10/08/18 18:07 Dose: 1,000 mls/hr Insulin Human Lispro (Humalog*) 0 units SUBCUT [facility]; Protocol Last Admin: 10/09/18 11:29 Dose: Not Given Lamotrigine (Lamictal Tab(*)) 150 mg PO BID [facility] Last Admin: 10/09/18 08:50 Dose: 150 mg Lisinopril (Prinivil Tab*) 5 [facility] [place] Admin: 10/09/18 08:52 Dose: 5 mg Methadone HCl (Dolophine Tab*) 60 mg PO TID [facility] Last Admin: 10/09/18 14:34 Dose: 60 mg Morphine Sulfate (Ms Contin(*)) 15 mg PO TID PRN PRN Reason: HEADACHE Last Admin: 10/09/18 15:42 Dose: 15 mg Pancrelipase (Zenpep Delayed Cap*) 40,000 units PO AC [facility] Last Admin: 10/09/18 11:32 Dose: 40,000 units Pantoprazole Sodium (Protonix Tab*) 40 mg PO QAM [facility] Last Admin: 10/09/18 08:51 Dose: 40 mg Vital Signs - 8 hr 10/09/18 10/09/18 10/09/18 08:52 11:00 11:33 Temperature 98.1 F Pulse Rate 56 Respiratory 16 18 18 Rate Blood Pressure 125/77 (mmHg) O2 Sat by Pulse 95 Oximetry 10/09/18 10/09/18 10/09/18 12:46 14:34 15:00 Temperature Pulse Rate 56 Respiratory 18 18 16 Rate Blood Pressure 134/78 (mmHg) O2 Sat by Pulse 97 Oximetry 10/09/18 15:42 Temperature Pulse Rate Respiratory 18 Rate Blood Pressure (mmHg) O2 Sat by Pulse Oximetry Oxygen Devices in Use Now: None Appearance: Patient is a 63yo male who appears stated age and is sitting in the bed in [facility]. Eyes: No Scleral Icterus, PERRLA Ears/Nose/Mouth/Throat: NL Teeth, Lips, Gums, Clear Oropharnyx, Mucous Membranes Moist Neck: NL Appearance and Movements; NL JVP, Trachea Midline Respiratory: Symmetrical Chest Expansion and Respiratory Effort, Clear to Auscultation Cardiovascular: NL Sounds; No Murmurs; No JVD, RRR, No Edema Abdominal: NL Sounds; No Tenderness; No Distention, No Hepatosplenomegaly Lymphatic: No Cervical Adenopathy Extremities: No Edema, No Clubbing, Cyanosis Skin: No Rash or Ulcers, No Nodules or Sclerosis Neurological: Alert and Oriented x 3, NL Sensation, - - Slight Right sided facial droop, Left sided dorsiflexion weakness. Result Diagrams: 10/09/18 08:26 10/09/18 08:26 Additional Lab and Data: Lab Results Assess/Plan/Problems-Billing Assessment: Patient is a 63yo male with a PMH for Meningioma S/P resection with partial seizures and multiple back surgeries who came in with a syncopal episode of unclear cause who is currently undergoing evaluation for neurological, cardiac, and neurocardiogenic causes. - Patient Problems (1) Syncope Current Visit: Yes Status: Acute Code(s): R55 - SYNCOPE AND COLLAPSE SNOMED Code(s): 693722960 Comment: - Unclear cause. Patient had several episodes of unconciousness over the course of an hour without obvious convulsions or post-ictal state. - Patient does not feel dehydrated, states this did not feel like when he previously had neurocardiogenic syncope - Prolactin normal, but drawn significantly after event. - EEG stable, Lamictal level pending, recent transition from depakote - Due to palpitations and prolonged prodrome, possible tachyarrythmia, no troponin elevation or telemetry abnormalities - Consider outpatient holter - Appreciate Neuro Consult - Very recent normal MRI Brain W/WO contrast, no signs of increased ICP. - Vitamin B12 low, supplement. (2) Seizures Current Visit: Yes Status: Acute Code(s): R56.9 - UNSPECIFIED CONVULSIONS SNOMED Code(s): 20846096 Comment: - Stable on Lamictal, usually only has partial seizures. (3) Parasagittal meningioma Current Visit: No Status: Acute Priority: High Onset Date: 02/17/14 Code (s): D32.0 - BENIGN NEOPLASM OF CEREBRAL MENINGES SNOMED Code(s): 133664252 Comment: - S/P Resection and Gamma Knife - MRI Unchanged. (4) Diabetes mellitus, type 2 Current Visit: No Status: Chronic Comment: - SSI, Resume Metformin at D/C. (5) HLD (hyperlipidemia) Current Visit: No Status: Chronic Code(s): E78.5 - HYPERLIPIDEMIA, UNSPECIFIED SNOMED Code(s): 57827431 Comment: - Continue lipitor (6) HTN (hypertension) Current Visit: No Status: Chronic Code(s): I10 - ESSENTIAL (PRIMARY) HYPERTENSION SNOMED Code(s): 68151738 Comment: - Normotensive on lisinopril (7) MDS (myelodysplastic syndrome) Current Visit: Yes Status: Acute Code(s): D46.9 - MYELODYSPLASTIC SYNDROME, UNSPECIFIED SNOMED Code(s): 426521257 Comment: - Pancytopenia at baseline - With SURYA and B12 deficiency. Supplement both and F/U outpatient hematology (8) Hx of migraine headaches Current Visit: No Status: Chronic Code(s): Z86.69 - PERSONAL HISTORY OF DIS OF THE NERVOUS SYS AND SENSE ORGANS SNOMED Code(s): 299389875 Comment: - Sequelae of Previous surgery, continue Morphine and Methadone. (9) DVT prophylaxis Current Visit: Yes Status: Acute Code(s): Z29.9 - ENCOUNTER FOR PROPHYLACTIC MEASURES, UNSPECIFIED SNOMED Code(s): 984747612 Comment: - Lovenox Status and Disposition: Inpatient for syncope evaluation.
[2018-10-09] MEDS: Ferrous Sulfate TAB* 325 MG PO SCH (16:22)
--- NOTE | 2018-10-09 19:18 | CONS ---
NEUROLOGY CONSULTATION REPORT: DATE OF CONSULT: 10/09/18 CONSULTING PROVIDER: Mr. Lewis Ailin. REASON FOR CONSULT: Syncope. CHIEF COMPLAINT: "I passed out." HISTORY OF PRESENT ILLNESS: Mr. Facundo Morelos is a 63-year-old man who has a history of parasagittal meningioma, status resection in 2013 with subsequent gamma knife in 2014, who developed post tumor/surgical seizures. The patient stated that he has had 3 total seizures since the surgery. However, I reviewed records from prior hospitalization where he was evaluated by Dr. Dallin Naidu on 02/27/14 when he actually had the seizures following the procedure, but again was seen by Dr. Amaury Michelle in the inpatient service on 12/22/[address] of [address] Michelle thought that the patient's symptoms may have been related to partial seizures. Currently, the patient is on lamotrigine 150 mg twice daily. He reports adherence to the medication. The patient stated that yesterday he was sitting in the chair when he felt something "hit him." This took place at 1430 p.m. He states that he passed out for approximately 60 to 90 minutes. However, with further detailed history , the patient was apparently evaluated after his symptoms by his grandchild between 3 and 3:30. I personally spoke to Chinedu, who was available at bedside today. She stated that she came to visit her grandfather, who was apparently walking around and complaining of having a stomach upset. He was having diarrhea. The patient stated that he had burgers at his 's office a few hours prior to the diarrhea. He also stated that he had the burgers the night prior, which did not cause him to be sick. Chinedu stated that she left the patient at 3:30 and he was eventually sitting comfortably and just complaining of not feeling well. The patient contacted his at 3:40 and complained that he was not feeling well, complained of lightheadedness, felt his heart beating out of his chest, felt ice cold and his fingers were cold and numb. His spouse contacted EMS approximately 4 to 4:10. Wayne, who is the chief of the EMS department, came in to assess the patient at approximately 4:15. Wayne had reported to the patient's that the patient was awake and complaining of not feeling well and then eventually, he suddenly passed out at 4:15. His spouse arrived at 4:20 when the patient was completely disoriented and minimally responsive. The patient stated that he recalled people coming in his house, but he does not recall the transport from his house to the hospital. He eventually woke up in the hospital and slowly came back to his normal self. Therefore, after questioning the patient how he passed out for 60 to 90 minutes , he stated, "Oh, it may have felt this long, but it clearly wasn't that long." The patient did not report any seizure-like activity. There was no episode of convulsions, incontinence, or tongue biting. He did not have any prolonged postictal state. As a matter of fact, the patient was evaluated by Dr. Morales, the ER provider who walked him in the ER, and was reported to overall do well almost close to immediately after the episode. The patient currently denied any headaches, visual disturbance, focal weakness, or paresthesias. He had an EEG done today that showed no evidence of clear epileptiform discharges, but a breach rhythm and slowing over the area where the tumor was resected in the left parasagittal region. They had a CT of the head that showed no evidence of acute intracranial abnormality and encephalomalacia in the left frontal lobe consistent with his prior meningeal removal. He had a CTA head and neck completed on 10/08/18 that showed an occluded left vertebral artery and minimal atherosclerotic nonspecific left common carotid artery. I personally reviewed an MRI of the brain, which showed significantly narrowed left vertebral artery from 2013. There were no specific imaging studies of the neck to show the severity of the vertebral artery; however, there was a CTA and CTV of the head completed on 02/11/14 that showed significantly narrowed distal extracranial vertebral artery on the left, but unable to assess completely in the neck area, but there is definitely some asymmetry between the right and left, which appears that the left is slightly hypoplastic. Laboratory Data: WBC of 2.9, hemoglobin of 10.9, hematocrit of 33, platelet count of 106. Sodium 140, potassium is 4.0, chloride 107, carbon dioxide of 28 , creatinine is 1.22, [id number]-[id number] glucose of 115, lactic acid 2.3 and it dropped to 0.6. Vitamin B12 of 162. Toxicology screen, urine positive for opiates and cannabinoids. 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 Vitamin D 2000 units p.o. in the morning. 2. Methadone 60 mg p.o. t.i.d. 3. Lisinopril 5 mg p.o. in the morning. 4. Metformin 1000 mg p.o. at 1700. 5. Lamotrigine 150 mg p.o. b.i.d. 6. Excedrin 1 each p.o. every 12 hours as needed. 7. Fioricet 1 tab p.o. every 6 hours as needed. 8. Fenofibrate 145 mg p.o. in the morning. 9. Atorvastatin 20 mg p.o. in the morning. 10. Dexilant 60 mg p.o. in the morning. 11. Morphine 15 mg p.o. t.i.d. as needed. 12. Morphine sulfate. ALLERGIES: No known drug allergies. FAMILY HISTORY: The patient's father had history of lung cancer. Sister from stroke at age 72. 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 He lives with his . He denied any tobacco use. He drinks a few beers a week. 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 PHYSICAL EXAM: Vital Signs: Temperature of 98.1, pulse of 56, respiratory rate of 18, oxygen saturation 95, blood pressure is 125/77. Please note that orthostatic vitals were obtained by myself. His blood pressure supine was 148/ 92 and after 5 minutes standing, his blood pressure was 142/88, heart rate increased from 68 to 74 from supine to standing. General: Well-nourished, well -developed man in no acute distress. Head: Atraumatic, normocephalic without any obvious abnormalities. Eyes: Conjunctivae/corneas are clear. Neck is supple and symmetrical with no carotid bruit. No lymphadenopathy. Lungs are clear to auscultation bilaterally. Cardiovascular: Regular rate and rhythm with normal S1, S2. Extremities: Normal range of motion with no cyanosis. Skin: No skin lesions or laceration. Psych: Affect is broad and normal mood. Neurological Examination: Mental status: Awake, alert, and oriented to person , place, time, and general circumstance. Speech including naming, repetition, and comprehension were assessed and found to be normal. Cranial Nerves: Normal confrontation testing bilaterally. Pupils are midrange and reactive to light. Normal consensual response. Extraocular muscles are intact. Sensation is intact in the forehead, cheeks, and jaw region bilaterally. There is no facial droop. He was able to hear throughout the history process. Symmetrical palatal elevation. Normal strength against resistant. Tongue is symmetrical and midline with no atrophy or fasciculation. Motor Examination: No abnormal movements or pronator drift. Muscle strength is 5/5 in the upper and lower extremities proximally and distally bilaterally. Reflexes: Right/left 1/1, biceps 1/1, triceps 2/1, patella 2/1, ankle 1/1. Plantar flexor/flexor. Sensation: Is intact to light touch throughout. Coordination: Normal finger-to -nose and rapid alternating movement. Gait and Station: Narrow based, normal stance, no ataxia. DIAGNOSTIC STUDIES/LAB DATA: Labs and imaging studies as described above. ASSESSMENT AND RECOMMENDATIONS: Mr. Facundo Morelos is a 63-year-old man who has history of parasagittal meningioma, status post resection, complicated with post-tumor and postsurgical localization related epilepsy who presented with an episode of syncope. 1. Episode of suspected syncope. The patient had prodromal symptoms of lightheadedness, palpitations, tinnitus, and a tingling sensation in both upper extremities prior to losing consciousness for a few minutes. Although he reported loss of consciousness for 60 to 90 minutes, the history does not suggest so given that multiple family members reported seeing the patient to be awake and responsive during different times from 3:30 to 4:30, before he was evaluated by EMS. There was no reported seizure-like activity. However, this cannot be entirely excluded given his risk factors for seizures. Other differential diagnoses that need to be considered are vasovagal syncope due to dehydration given the patient had diarrhea hours prior to the episode. Cardiac arrhythmias will need to further be evaluated. 2. Left vertebral artery occlusion. I suspect this is an asymptomatic occlusion given that he has always had stenosis in the distal portion of the extracranial left vertebral artery seen on a previous CTA in 2013. He is asymptomatic at this time. No need to repeat imaging given that the patient is not complaining of any neurological symptoms at this time. 3. Vitamin B12 deficiency. This is probably induced by metformin. Recommendations: I recommend obtaining a lamotrigine level, a trough level. If it is within therapeutic range, I do not recommend any further adjustment to his medication. I am not convinced that this episode was a seizure. However, if he continues to have similar presentation, an ambulatory long-term video EEG monitoring or a 72-hour ambulatory study may be helpful in this case. I did inform the patient that since my suspicion for seizure is low and if he tends to do well over the next 7 days, driving restriction should not be enforced in this case. However, if he does have any evidence of seizure-like activity or non -provoked loss of awareness, given that this episode was probably provoked from his diarrhea, then he should not be operating any heavy machinery until cleared by his outpatient neurologist. The patient does see Dr. Brush. Please start him on cyanocobalamin 1000 mcg intramuscular injection x1. He can continue 1000 mcg p.o. daily. The patient should be on aspirin therapy given his known atherosclerotic disease. He is already on atorvastatin and fenofibrate. Continue neuro checks every 4 hours. Please contact us if the lamotrigine level is below the therapeutic range. Otherwise, I will sign off and have the patient follow up with Dr. Dahlia Brush. Further workup for possible cardiac arrhythmias will be deferred to the primary team. I discussed these results with Mr. Morelos, who agreed that he does not think that he had a seizure given this was extremely unusual for his seizure episodes. I also discussed my assessment and recommendations with Mrs. Morelos over the phone as well as the patient's grandchildren at bedside. [id number]/[facility] #: [id number] [facility] HOSPITALDina
--- NOTE | 2018-10-09 22:06 | EEG ---
ELECTROENCEPHALOGRAPHY: DATE OF SERVICE: 10/09/18 DATE READ: 10/09/18 DURATION: 1148 to 1235 ORDERED BY: Kayla Joshua Parisi. MEDICATIONS: 1. Methadone. 2. Insulin. 3. Pancrelipase. 4. Lamictal. 5. Lovenox. 6. Lipitor. 7. Vitamin D. 8. Fenofibrate. 9. Prinivil. 10. Protonix. 11. Morphine. INDICATION: Mr. Facundo Morelos is a 63-year-old man who has history of left parasagittal meningioma resection, status post post surgical and tumor seizures , who developed an episode yesterday where he became lightheaded, had a brief loss of consciousness, and developed hemodynamic instability with elevated blood pressure. There were no reported seizures. This EEG was obtained to evaluate for epileptiform discharges or electrographic seizures. CLINICAL STATE: Awake and drowsy. REPORT: The most prominent feature of this recording were nearly continuous polymorphic slowing over the left frontocentral region, with an area of higher amplitude superimposed faster frequency seen throughout the recording. This is consistent with a breach rhythm. Furthermore, there were sharp waves seen within the left central region, maximal at C3, most prominently during drowsiness. There were no rhythmicity to suspect electrographic seizures. In the setting of a breach rhythm, this is not entirely epileptiform discharges and can manifest vertex waves or higher amplitude rhythm due to the skull defect. Otherwise, the background consisted of mixed frequency slowing in the delta and theta range, with appropriate organization clearly defining anterior- posterior voltage gradient. There was a poorly sustained low voltage background rhythm of 10 Hz, which was symmetrical and showed normal reactivity. Anteriorly, there was an expected pattern of lower voltage, irregular, mixed faster frequencies. Attenuation of the occipital rhythm accompanied drowsiness. Hyperventilation and photic stimulation were not performed. Single electrode EKG showed normal sinus rhythm. Throughout the recording there were no electrographic seizures. IMPRESSION: This is an abnormal awake and drowsy EEG due to nearly continuous slowing over the left central region with superimposed sharp nonspecific waves, maximal at C3. Also, there was diffuse slowing of the background. These findings are consistent with a breach rhythm and an area of focal neuronal dysfunction in the left central region with superimposed diffuse mild nonspecific encephalopathy, which can be seen in toxic-metabolic disturbance or as a result of medication effect. The sharp features are not definitively epileptiform in nature and can be seen in the setting of a breach artifact. Clinical correlation is recommended. [id number]/[facility] #: [id number] [facility]
[2018-10-10] MEDS ORDERED: Melatonin 3 MG TAB PO PRN (02:03)
[2018-10-10] MEDS: Insulin LISPRO* 1 UNITS UNIT SUBCUT SCH ×2 (07:35→11:29)
[2018-10-10] MEDS: CMC:Fenofibrate(NF) 145 MG TAB PO SCH (08:00)
[2018-10-10] MEDS: Pancrelipase CAP* 5,000 UNITS CAP PO SCH ×2 (08:00→11:27)
[2018-10-10] MEDS: Cholecalciferol TAB* 1000 UNITS PO SCH (08:01)
[2018-10-10] MEDS: Morphine TAB Extended Release (*) 15 MG TAB.ER PO PRN (08:01)
[2018-10-10] MEDS: Atorvastatin* 20 MG TAB PO SCH (08:02)
[2018-10-10] MEDS: Ferrous Sulfate TAB* 325 MG PO SCH (08:03)
[2018-10-10] MEDS: Pantoprazole TAB * 40 MG TAB PO SCH (08:03)
[2018-10-10] MEDS: lamoTRIgine TAB(*) 100 MG PO SCH (08:03)
[2018-10-10] MEDS: Lisinopril TAB* 5 MG PO SCH (08:03)
[2018-10-10] MEDS: Methadone TAB* 10 MG PO SCH (08:04)
[2018-10-10] MEDS ORDERED: Cyanocobalamin TAB* 500 MCG PO SCH (09:00)
[2018-10-10 11:22] VITALS: BP 128/77
[2018-10-10 11:45] LABS: ABS Eosinophils 0.1 10^3/ul (0-0.6); ABS Lymphocytes 0.8 10^3/ul (1.0-4.8); ABS Monocytes 0.2 10^3/ul (0-0.8); ABS Neutrophils 1.8 10^3/ul (1.5-7.7); Eosinophil % 3.1 %; Hematocrit 33 % (42-52); Lymphocyte % 27.6 %; Mean Corpuscular HGB Conc 33 g/dL (31-36); Mean Corpuscular Hemoglobin 28 pg (27-31); Mean Corpuscular Volume 85 fL (80-94); Mean Platelet Volume 8.8 fL (7.4-10.4); Platelet Count 108 10^3/uL (150-450); Red Blood Count 3.94 10^6 /uL (4.18-5.48); Red Cell Distribution Width 16 % (10-15)
[2018-10-10 12:03] LABS: BUN/Creatinine Ratio 17.2 (8-20); Calcium 9.1 mg/dL (8.6-10.3); EGFR African American 77.4 (>60); Magnesium 1.8 mg/dL (1.9-2.7); Potassium 4.1 mmol/L (3.5-5.0)
--- NOTE | 2018-10-10 22:11 | DS ---
CC: Dot Parson NP; Dr. Kaiden Nguyen; Dr. Dahlia Brush DISCHARGE SUMMARY: DATE OF ADMISSION: 10/08/18 DATE OF DISCHARGE: 10/10/18 PRIMARY CARE PROVIDER: Dot Parson NP. MY ATTENDING WHILE IN THE HOSPITAL: Dr. Kaiden Nguyen. OUTPATIENT NEUROLOGIST: Dr. Dahlia Brush. PRIMARY DISCHARGE DIAGNOSIS: Syncope, unclear cause. SECONDARY DISCHARGE DIAGNOSES: 1. History of meningioma, status post resection and gamma knife surgery. 2. Partial seizures. 3. Pancreatic necrosis with pancreatic insufficiency. 4. Diabetes mellitus type 2. 5. Lumbosacral spondylosis, status post 8 surgeries. 6. Myelodysplasia with pancytopenia. STUDIES DONE WHILE IN THE HOSPITAL: EKG from 10/08/18 shows normal sinus rhythm , normal axis. No ST segment elevation or depression. No hypertrophy or enlargement. Rate of 79, QTc of 467. Compared with previous study, there are no significant changes. Brain CT from 10/08/18 read as no acute intracranial abnormality, left frontal lobe changes from prior meningioma removal with chronic vessel ischemic change. Chest x-ray from 10/08/18 read as no evidence for acute intrathoracic disease. 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 Transthoracic echocardiogram from 10/09/18 read as left ventricular chamber size is normal, mild concentric hypertrophy, estimated ejection fraction of 55% to 60%. Wall motion is normal. Left atrium is mildly dilated. Right atrium is mildly dilated. Functionally benign heart valves. Aortic root is moderately dilated. Ascending aorta is moderately dilated. No prior echocardiogram to compare to. Electroencephalogram from 10/09/18, impression: This is an abnormal awake and drowsy EEG due to nearly continuous slowing over the left central region with superimposed sharp nonspecific waves, maximal at C3. Also diffuse slowing of the background consistent with a breach rhythm and an area of focal neuronal dysfunction in the left central region with superimposed diffuse nonspecific encephalopathy, which can be seen in toxic metabolic disturbance or result of medication effect. These sharp features are not definitively epileptiform in nature and can be seen in the setting of breach artifact. Clinical correlation is recommended. MEDICATIONS AT DISCHARGE: 1. Vitamin D 2000 units p.o. daily. 2. Methadone 60 mg p.o. t.i.d. 3. Lisinopril 5 mg p.o. daily. 4. Metformin 1000 mg p.o. twice daily. 5. Excedrin Migraine 1 tab p.o. q.12 hours as needed. 6. Fioricet 1 tab p.o. q.6 hours as needed. 7. Zenpep 40,000/126,000 units, 1 capsule p.o. with meals. 8. Fenofibrate 145 mg p.o. q.a.m. 9. Lipitor 20 mg p.o. daily. 10. Dexilant 60 mg p.o. daily. 11. MS Contin 15 mg p.o. t.i.d. as needed. 12. Vitamin B12 1000 units p.o. daily. 13. Ferrous sulfate 325 mg p.o. daily. 14. Lamotrigine 150 mg p.o. q.a.m. 15. Lamotrigine 200 mg p.o. q.p.m. New medications at discharge: 1. Vitamin B12. 2. Ferrous sulfate. 3. Lamotrigine 200 and 150. Medication discontinued at discharge: Lamotrigine 150 mg p.o. b.i.d. HOSPITAL COURSE: This is a brief summary of the patient's presentation. For more details, please see the history and physical from Dr. Irene Steward on . In brief, the patient is a 63-year-old male with past medical history significant for the above, who, on the day of his presentation, was feeling normal, was sitting in his chair, not exercising, and began to feel funny. This funny feeling consisted of palpitations, cold sweats, and a feeling of presyncope. The patient had 3 episodes of diarrhea earlier in the day and also had some stomach upset, but did not have any abnormal intake. The patient initially stated he was unconsciousness for an [id number]. However, further clarification of the timeline showed that the actual time in which he was unconsciousness was more like 20 minutes with approximately half an hour of prodrome. The patient did not have a postictal period. The patient has never had anything like this before. The patient had had similar symptoms with simple fainting in the setting of dehydration with lawn work previously, but stated this was much different in that it had a much longer prodrome and the prodrome felt different. The patient was admitted to the hospital and monitored on telemetry, which had no significant findings. The patient had an echocardiogram, read as above, showing dilated atria, concentric left ventricular hypertrophy, and no other significant findings. The patient had an EEG, which was consistent with his previous. The patient's occluded vertebral artery was found to be chronic and did not correlate well with his symptoms. The patient has chronic headache for which he takes the above narcotics, which was stable throughout his hospitalization and not worse with his prodrome. The patient was seen in consultation by Dr. Lucia Jacob of Neurology, who did not believe that the patient had a seizure and recommended lamotrigine level, which came back low normal and the patient's lamotrigine was increased. The patient continued to feel well throughout his hospitalization. The patient had no recurrent episodes. The patient had no significant changes in his CMP or WBC count. The patient was found to be slightly iron deficient and started on oral iron. The patient had an elevated lactic acid when he came in, which resolved with fluids. The patient had normal prolactin approximately 14 hours after his presentation. The patient was stable and amenable for discharge to home on . PHYSICAL EXAM ON THE DAY OF DISCHARGE: General: The patient is a 63-year-old male, who appears stated age and sitting comfortably on the bed, in no acute distress. Vital Signs: At the time of evaluation, temperature 97.5, pulse rate 58, respiratory rate 20, oxygen saturation 97% on room air, blood pressure 128/77. HEENT: Head is normocephalic and atraumatic. Sclerae anicteric. No conjunctival injection. Nasal mucosa moist. Oral mucosa moist. No pharyngeal erythema, discharge or exudate. Neck: Supple, nontender. No lymphadenopathy. No carotid bruits auscultated. No JVD. Cardiac: Regular rate and rhythm. No clicks, murmurs, gallops or rubs. Pulses are 2+ in the bilateral dorsalis pedis, posterior tibialis, and radial areas. Respiratory: Clear to auscultation bilaterally. No wheezes, rales or rhonchi. Good aeration bilaterally. Abdomen: Soft, nontender, nondistended. Bowel sounds present and normoactive in all 4 quadrants. No hepatosplenomegaly. No abdominal bruits auscultated. No hepatojugular reflux. Genitourinary: No suprapubic or CVA tenderness. Skin: Clean, dry, and intact. Scars from previous surgery. Neuro: Cranial nerves II through XII are intact. No focal deficits. Alert and oriented x3. Psychiatric: Pleasant and cooperative. DISCHARGE PLAN: The patient will be discharged to home. There is no apparent cause for the patient's syncope at this time. His differential still includes primarily neurocardiogenic syncope in the setting of dehydration from diarrhea given his elevated lactic acid, likely concentrated blood sample on admission, and prodromal symptoms. However, seizure remains in the differential, particularly given the patient's borderline low lamotrigine level. The patient' s lamotrigine will be increased and his levels should be rechecked per his outpatient neurologist. Given that patient has had no confirmed seizure, though he should be cautious for the first several days after leaving the hospital, and it should not be enforced that he not drive for the time being. The patient will be supplemented with B12. This is unlikely that this has contributed to the patient's presentation. Given the patient's palpitations, consideration for long-term cardiac monitoring setup through his primary care provider should be given. This was unable to be set up in the hospital due to this being a weekend. The patient should have a heart-healthy diet, consistent carbohydrate without caffeine. The patient should follow up with his primary care provider in 1 week for general medical management. The patient should return to the hospital for alarming symptoms such as passing out, chest pain or other alarming symptoms. TIME SPENT: Approximately 60 minutes were spent on the discharge of this patient, 30 of which was spent [id number] with the patient, obtaining history and physical and discussing treatment plan. WILBER JEAN-BAPTISTE [id number]/[facility] #: [id number] VEE
== END 2018-10-10 14:45 | disposition home or self-care (01) ==
LOC: ED 17:14 → MED 23:35
PROVIDERS: ADMIT Internal Medicine; ATTEND Internal Medicine
DX: R55 Syncope and collapse (principal); D32.9 Benign neoplasm of meninges, unspecified; G40.109 Localization-related (focal) (partial) symptomatic epilepsy and epileptic syndromes with simple partial seizures, not intractable, without status epilepticus; K86.89 Other specified diseases of pancreas; E11.9 Type 2 diabetes mellitus without complications; M47.9 Spondylosis, unspecified; Z98.890 Other specified postprocedural states; D46.9 Myelodysplastic syndrome, unspecified; D61.818 Other pancytopenia
CPT/HCPCS: 36415; 70450; 70496; 70498; 71045; 80048; 80053; 80175; 80307; 80320; 81003; 82607; 82728; 82746; 83540; 83550; 83605; 83735; 84146; 84443; 84484; 85025; 85027; 85610; 85730; 93005; 93306; 95819; 96365; 96372; 96375; 99285; A9270-GY; G0378; G0480; J1650; J2405; J3420; Q9967

== ENCOUNTER 2019-01-13 06:28 | Inpatient (IN) | payer MEDICARE, BC ==
[~2019-01-13 06:28] MED LIST: Buffered Lidocaine 1% SYRIN* 1 ML/SYRINGE INTRADERM ONE; Famotidine IV* 10 MG/ML 2 ML (20 mg) IV ONE; Lactated Ringers 1000 ML Bag* 1,000 ML IV SCH
[2019-01-13] MEDS ORDERED: Famotidine IV* 10 MG/ML 2 ML (20 mg) ONE ×2 (07:13→07:15)
[2019-01-13] MEDS ORDERED: ceFAZolin 2 GM PREMIX in ORs 2 GM/50 ML BAG ONE ×2 (07:14→13:43)
[2019-01-13] MEDS ORDERED: Dexamethasone IV* 4 MG/ML 1 ML (4 MG) ONE (08:39)
[2019-01-13] MEDS ORDERED: Propofol* 10 MG/ML 20 ML BTL ONE (08:39)
[2019-01-13] MEDS ORDERED: Ondansetron INJ* 2 MG/ML VIAL ONE (08:39)
[2019-01-13] MEDS ORDERED: Lidocaine 2% PF * 5 ML VIAL ONE (08:39)
[2019-01-13] MEDS ORDERED: Midazolam* 1 MG/ML 5 ML VIAL (5 MG) ONE (08:40)
[2019-01-13] MEDS ORDERED: fentaNYL* 50 MCG/ML 5 ML VIAL (250 MCG VIAL) ONE (08:40)
[2019-01-13] MEDS ORDERED: Phenylephrine 10 MG/ML VIAL* 1 ML VIAL ONE (08:40)
[2019-01-13] MEDS ORDERED: KETAMINE HCL* 50 MG/ML 10 ML VIAL ONE (08:40)
[2019-01-13] MEDS ORDERED: Rocuronium* 10 MG/ML VIAL ONE ×3 (08:40→13:58)
[2019-01-13] MEDS ORDERED: Ropivacaine 0.2% * 2 MG/ML VIAL ONE (09:17)
[2019-01-13] MEDS ORDERED: EPHEDrine (Pressors)* 50 MG/ML VIAL ONE (10:09)
[2019-01-13] MEDS ORDERED: Glycopyrrolate IV* 0.2 MG/ML 1 ML VIAL ONE ×2 (10:18→14:15)
[2019-01-13] MEDS ORDERED: Naloxone* 0.4 MG/ML 1 ML VIAL IV PRN (10:44)
[2019-01-13] MEDS ORDERED: Ondansetron INJ* 2 MG/ML VIAL IV PRN (10:44)
[2019-01-13] MEDS ORDERED: fentaNYL* 50 MCG/ML 2 ML VIAL (100 MCG VIAL) IV PRN (10:44)
[2019-01-13] MEDS ORDERED: Morphine 10 MG/ML VIAL (1 ml) IV PRN (10:44)
[2019-01-13] MEDS ORDERED: fentaNYL* 50 MCG/ML 2 ML VIAL (100 MCG VIAL) ONE ×2 (11:42→15:10)
[2019-01-13] MEDS ORDERED: VASOPRESSIN 20 UNITS/ML 1 ML VIAL ONE (13:26)
[2019-01-13] MEDS ORDERED: Morphine 10 MG/ML VIAL (1 ml) ONE (14:14)
[2019-01-13] MEDS ORDERED: Neostigmine Methylsulfate* 1 MG/ML 10 ML VIAL (1 mg/ml) ONE (14:15)
[2019-01-13] MEDS ORDERED: Ketorolac INJ* 30 MG/ML 1 ML VIAL ONE (14:27)
[2019-01-13] MEDS ORDERED: Acetaminophen IV 1GM/100ML * 100 ML ONE (15:13)
[2019-01-13] MEDS ORDERED: diPHENhydraMINE IV* 50 MG/ML 1 ml VIAL (BENADRYL) IV PRN (15:18)
[2019-01-13] MEDS ORDERED: Polyethylene Glycol 3350* 17 GM PACKET PO PRN (15:18)
[2019-01-13] MEDS ORDERED: diPHENhydraMINE PO* 25 MG PO PRN (15:18)
[2019-01-13] MEDS ORDERED: traZODone TAB* 50 MG TAB PO PRN (15:18)
[2019-01-13] MEDS ORDERED: Methadone TAB* 10 MG PO ONE (16:00)
[2019-01-13] MEDS ORDERED: Methadone TAB* 10 MG PO SCH (16:00)
[2019-01-13] MEDS ORDERED: Lactated Ringers 1000 ML Bag* 1,000 ML IV SCH (16:00)
[2019-01-13] MEDS ORDERED: ceFAZolin 1 GM ADVAN(*) 1 GM in NS 0.9% 50 ML* 50 ML IVPB SCH (16:00)
[2019-01-13] MEDS ORDERED: Dextrose 50% VIAL 50 ml IV PUSH PRN (16:45)
[2019-01-13] MEDS: Lactated Ringers 1000 ML Bag* 1,000 ML IV SCH ×2 (17:42→19:04)
--- NOTE | 2019-01-13 18:42 | CONS ---
CC: Dr. Wilder Suresh; Grisel Urena NP * CONSULTATION REPORT: DATE OF CONSULT: 01/13/19 PRIMARY CARE PROVIDER: Grisel Urena NP CONSULTING PROVIDER: Dr. Wilder Suresh. MY ATTENDING WHILE IN THE HOSPITAL: Dr. Rochelle Rosenbaum. REASON FOR CONSULT: Co-management of comorbid medical conditions. HISTORY OF PRESENT ILLNESS: Mr. Morelos is a 63-year-old male with past medical history significant for numerous back and neck surgeries; meningioma, status post resection and postsurgical seizures; posttraumatic pancreatitis with pancreatic insufficiency; history of [place]; history of provoked DVT; seizure disorder; history of apical [place], who today underwent a revision of right total shoulder reverse, which lasted a significant period of time with Dr. Suresh. The patient was examined postoperatively and is feeling well. The patient denies chest pain, shortness of breath, fevers, chills, nausea, vomiting, dizziness, palpitations, or excruciating pain. The patient is maintained on methadone 40 mg in the morning midday and 50 mg in the evening. The patient has not had any recent sick contacts, changes in his medications, or other medical issues. The patient has no decreased functional status, no swelling of the legs, no recent weight loss or weight gain, no difficulty breathing lying flat. The patient has had recent lamotrigine levels, which were within normal limits and has not had any recent syncope or seizures. The patient in the PACU has been having persistently low blood pressures, which were responding to fluids. PAST MEDICAL HISTORY: Chronic back pain, diabetes, GERD, hemorrhoids, hearing loss, hyperlipidemia, hypertension, hypogonadism, hypomagnesemia, migraines, pancreatic cyst. PAST SURGICAL HISTORY: Lumbar surgery x8, neck surgery x4, meningioma resection , right total shoulder replacement, left humerus ORIF. MEDICATIONS: 1. Vitamin D 1000 units p.o. daily. 2. Methadone 4 to 5 tabs p.o. t.i.d. 3. Glucophage 1000 mg p.o. b.i.d. 4. Dexilant 60 mg p.o. daily. 5. Creon 36,000 units p.o. t.i.d. 6. Lamotrigine 150 mg p.o. b.i.d. 7. Synthroid 75 mcg p.o. daily. 8. CBD oil 25 mg p.o. b.i.d. 9. Vitamin B12 1000 mcg p.o. daily. 10. Magnesium oxide 1000 mg p.o. daily. 11. Amlodipine 5 mg p.o. daily. 12. Lisinopril 40 mg p.o. daily. 13. Iron 1 tab p.o. daily, unknown dose. ALLERGIES: No known drug allergies. FAMILY HISTORY: The patient's father had a myocardial infarction and cancer of unknown type. The patient's mother of a ruptured colon. SOCIAL HISTORY: The patient is a retired [employer]. The patient denies ever smoking. The patient drinks occasional alcohol. The patient denies any illicit drug use. The patient's surrogate decision maker will be his , Chelle Morelos. REVIEW OF SYSTEMS: A 10-point review of systems was reviewed and is negative except as above in the HPI. PHYSICAL EXAM: General: The patient is a 63-year-old male, who appears stated age and sitting comfortably in bed, in no acute distress. Vital Signs: Temperature 98.6, pulse rate 58, respiratory rate 20, O2 saturation 100% on 2 L , blood pressure at the time of evaluation 105/60. HEENT: Head normocephalic, atraumatic. Sclerae anicteric. No conjunctival injection. Nasal mucosa moist. Oral mucosa moist. No oropharyngeal erythema, discharge, or exudate. Neck: Supple, nontender. No lymphadenopathy. No carotid bruits auscultated. No JVD. Cardiac: Regular rate and rhythm. No clicks, murmurs, gallops, or rubs. Pulses are 2+ in the bilateral dorsalis pedis, posterior tibialis, and radial areas. Respiratory: Clear to auscultation bilaterally. No wheezes, rales, or rhonchi. Good air exchange bilaterally. Abdomen: Soft, nontender, nondistended. Bowel sounds present and normoactive in all 4 quadrants. No hepatosplenomegaly. No abdominal bruits auscultated. No hepatojugular reflux. Genitourinary: No suprapubic or CVA tenderness. Skin: Clean, dry, and intact. No rash. Right shoulder incision covered in bulky dressing. Neuro: Cranial nerves II through XII intact. Left leg weakness with plantar and dorsiflexion. Unable to assess strength in the right upper extremity. Strength in the left upper extremity and right lower extremity preserved distally and proximally. Psychiatric: Pleasant and cooperative. DIAGNOSTIC STUDIES/LAB DATA: Preoperative laboratory data: White blood cell count 3.5, hemoglobin 12.9, platelet count 115,000. INR 0.97, PTT 37.1. Sodium 139, potassium 4.3, chloride 104, carbon dioxide 30, anion gap 5, BUN 22, creatinine 1.75, glucose 109, calcium 9.3. Urine unremarkable. Studies: Shoulder x-ray read as intraoperative controlled films. Shoulder x- ray read as status post total right shoulder revision, placement surgery, periprosthetic fracture. ASSESSMENT AND PLAN: Impression: Mr. Morelos is a 63-year-old male with past medical history significant for history of myocardial infarction, provoked deep venous thrombosis, pancreatitis, hypertension and seizures due to meningioma resection, who is status post right total shoulder reverse revision and is doing well except for some hypotension, which is currently responding to fluids. 1. Postoperative state. Management per Orthopedics. The patient's main concern at this time is his low blood pressure. This is likely anesthesia related. The patient is currently asymptomatic and is responding to fluids. The patient will continue to be monitored and the patient's blood pressure will be assessed after fluids are completed. If the patient does not respond to fluids, they may be continued and placement in the ICU and vasopressor placement may be indicated at this time. We will repeat an H and H if hypotension persists. The patient after surgery will need DVT prophylaxis, PT and OT, bowel regimen. Hold the patient's antihypertensives, resume when indicated. 2. History of myocardial infarction. The patient is currently asymptomatic. Continue Lipitor for primary prevention. 3. History of deep venous thrombosis. Continue Lovenox after surgery. 4. Diabetes. Hold metformin. Start insulin sliding scale. Resume metformin tomorrow if there is no acute kidney injury on repeat BMP. 5. History of pancreatitis. Continue Creon. 6. Chronic pain. Continue methadone for chronic and acute pain. Breakthrough meds per Orthopedics. 7. DVT prophylaxis: Lovenox as above. 8. FEN: The patient will have a consistent carbohydrate diet and fluids as needed for blood pressure support. 9. Code status: The patient would like to be a full code. TIME SPENT: Approximately 60 minutes were spent on this consultation, 30 of which was spent [id number] with the patient obtaining history and physical and discussing the treatment plan. This plan has been discussed with my attending, Dr. Rochelle Rosenbaum, and she is in agreement. WILBER JEAN-BAPTISTE [id number]/[facility] #: [id number] VEE
[2019-01-13 19:46] LABS: Hematocrit 26 % (42-52); Hemoglobin 8.9 g/dL (14.0-18.0)
[2019-01-13] MEDS ORDERED: metFORMIN* 1,000 MG TAB PO SCH (21:00)
[2019-01-13] MEDS: Insulin LISPRO* 1 UNITS UNIT SUBCUT SCH (21:01)
[2019-01-13] MEDS: Docusate CAP* 100 MG PO SCH (21:01)
[2019-01-13] MEDS: Acetaminophen TAB* 325 MG PO SCH (21:02)
[2019-01-13] MEDS: HYDROcodone/ACETAMIN 5-325 MG* 1 TAB PO PRN (21:02)
[2019-01-13] MEDS: lamoTRIgine TAB(*) 100 MG PO SCH (21:11)
[2019-01-13] MEDS: Methadone TAB* 10 MG PO SCH (22:12)
[2019-01-13] MEDS: ceFAZolin 1 GM ADVAN(*) 1 GM in NS 0.9% 50 ML* 50 ML IVPB SCH (22:45)
[2019-01-14] MEDS: Morphine INJ* 2 MG/ML 1 ML SYRINGE (TWO MG - NEW SYRINGE VERSION) IV PRN ×5 (00:22→18:41)
[2019-01-14] MEDS: HYDROcodone/ACETAMIN 5-325 MG* 1 TAB PO PRN ×4 (01:45→22:04)
[2019-01-14] MEDS: Lactated Ringers 1000 ML Bag* 1,000 ML IV SCH (01:52)
[2019-01-14] MEDS: Levothyroxine TAB* 75 MCG TAB PO SCH (05:24)
[2019-01-14] MEDS: Acetaminophen TAB* 325 MG PO SCH ×3 (05:24→22:10)
[2019-01-14] MEDS: ceFAZolin 1 GM ADVAN(*) 1 GM in NS 0.9% 50 ML* 50 ML IVPB SCH ×2 (05:25→15:23)
[2019-01-14 05:50] LABS: Hematocrit 23 % (42-52); Hemoglobin 7.9 g/dL (14.0-18.0); Mean Platelet Volume 9.1 fL (7.4-10.4); Platelet Count 96 10^3/uL (150-450)
[2019-01-14 06:08] LABS: BUN/Creatinine Ratio 20.3 (8-20); Calcium 7.4 mg/dL (8.6-10.3); EGFR African American 63.4 (>60); EGFR Non-African American 52.4 (>60); Potassium 4.4 mmol/L (3.5-5.0)
--- NOTE | 2019-01-14 06:29 | PN ---
Progress Note - Progress Note Date of Service: 01/14/19 Note: Pt seen and examined. In ICU overnight due to low BPs. Staying in 90s to 100s with fluid. HCT 26 after surgery and dropping mildly. Denies CP, SOB, numbness or tingling, and neck pain. Reports pain in shoulder. Temp Pulse Resp BP Pulse Ox 97.4 F 61 15 92/53 100 01/14/19 04:00 01/14/19 06:00 01/14/19 06:22 01/14/19 06:00 01/14/19 06:00 NAD. pleasant. AAOx3. conversant. right shoulder dressing in place. sling in place. sensate to light touch about the 1st dws, index and long finger, and ulnar aspect of small finger. WWP. brisk cap refill. able to flex/ext digits. Laboratory Results - last 24 hr 01/13/19 01/13/19 01/13/19 07:20 15:30 19:39 Hgb 8.9 L Hct 26 L Plt Count MPV Sodium Potassium Chloride Carbon Dioxide Anion Gap BUN Creatinine Est GFR ( Amer) Est GFR (Non-Af Amer) BUN/Creatinine Ratio Glucose POC Glucose (mg/dL) 95 192 H Calcium 01/13/19 01/14/19 01/14/19 20:48 05:37 05:37 Hgb 7.9 L Hct 23 L Plt Count 96 L MPV 9.1 Sodium 136 Potassium 4.4 Chloride 106 Carbon Dioxide 26 Anion Gap 4 BUN 28 H Creatinine 1.38 H Est GFR ( Amer) 63.4 Est GFR (Non-Af Amer) 52.4 BUN/Creatinine Ratio 20.3 H Glucose 163 H POC Glucose (mg/dL) 185 H Calcium 7.4 L xrays reviewed and acceptable A/P 63 yo M s/p R shoulder revision surgery with conversion to reverse nwb right shoulder analgesia ROM of elbow, wrist, and hand. OOBTC/ activity as tolerated will continue drain until output slows more. total drainage 390 dvt ppx lovenox when medically appropriate ACBLA- HCT 23 will follow. appreciate ICU/medicine care. dispo when medically stable.
[2019-01-14] MEDS: Insulin LISPRO* 1 UNITS UNIT SUBCUT SCH ×4 (08:58→22:15)
[2019-01-14] MEDS ORDERED: Influenza VAC *QUAD* 2019-20* 0.5 ML SYRINGE IM ONE (09:00)
[2019-01-14] MEDS: lamoTRIgine TAB(*) 100 MG PO SCH ×2 (09:19→22:06)
[2019-01-14] MEDS: Docusate CAP* 100 MG PO SCH ×2 (09:19→22:06)
[2019-01-14] MEDS: Pantoprazole TAB * 40 MG TAB PO SCH (09:20)
[2019-01-14] MEDS: Vitamin THERAPEUTIC TAB PO SCH (09:20)
[2019-01-14] MEDS: Cholecalciferol TAB* 1000 UNITS PO SCH (09:20)
[2019-01-14] MEDS: Methadone TAB* 10 MG PO SCH ×3 (09:21→22:04)
[2019-01-14] MEDS: Magnesium Oxide TAB* 400 MG PO SCH ×2 (09:22→22:05)
--- NOTE | 2019-01-14 11:26 | PN ---
Subjective Date of Service: 01/14/19 Interval History: Pt seen today and states that he is feeling well. He had some shoulder pain late in the evening, but pain is usually well controlled with medication. Currently pain is 5/10. He is seen in consult for hypotension. He has been ambulating without difficulty, SOB, lightheadedness, dizziness, palpitations. Wang removed this a.m., and he is urinating well. He has no other complaints today. Objective Active Medications: Acetaminophen (Tylenol Tab*) 975 mg PO Q8HR SEJAL Hydrocodone Bitart/Acetaminophen (Otis 5-325 Tab*) 1 tab PO Q4H PRN Hydrocodone Bitart/Acetaminophen (Otis 5-325 Tab*) 2 tab PO Q4H PRN Bisacodyl (Dulcolax Supp*) 10 mg WA DAILY PRN Cholecalciferol (Vitamin D Tab*) 1,000 units PO QAM SEJAL Cyanocobalamin (Vitamin B12 Tab*) 1,000 mcg PO 1400 SEJAL Cyclobenzaprine HCl (Flexeril Tab*) 10 mg PO Q6H PRN Dextrose (Dextrose 50% Vial 50 Ml*) 25 ml IV PUSH .FOR FS < 60 - SS PRN Diphenhydramine HCl (Benadryl Iv*) 25 mg IV Q6H PRN Diphenhydramine HCl (Benadryl Po*) 25 mg PO Q6H PRN Docusate Sodium (Colace Cap*) 100 mg PO BID SEJAL Enoxaparin Sodium (Lovenox(*)) 40 mg SUBCUT Q24H SEJAL Lactated Ringer's (Lactated Ringers 1000 Ml Bag*) 1,000 mls @ 150 mls/hr IV PER RATE SEJAL Cefazolin Sodium 1 gm/ Sodium (Chloride) 50 mls @ 200 mls/hr IVPB Q8H SEJAL Insulin Human Lispro (Humalog*) 0 units SUBCUT ACHS SEJAL; Protocol Lactulose (Lactulose*) 30 ml PO BID PRN Lamotrigine (Lamictal Tab(*)) 150 mg PO BID SEJAL Levothyroxine Sodium (Synthroid Tab*) 75 mcg PO 0600 SEJAL Magnesium Hydroxide (Milk Of Magnesia Liq*) 30 ml PO Q6H PRN Magnesium Oxide (Magox 400 Tab*) 400 mg PO QAM SEJAL Magnesium Oxide (Magox 400 Tab*) 800 mg PO 2100 SEJAL Methadone HCl (Dolophine Tab*) 40 mg PO 0900,1400 SEJAL Methadone HCl (Dolophine Tab*) 50 mg PO 2100 SEJAL Morphine Sulfate (Morphine Inj (Syringe))*) 2 mg IV Q4H PRN Multivitamins (Theragran Tab*) 1 tab PO DAILY SEJAL Oxycodone HCl (Roxycodone Tab*) 10 mg PO Q4H PRN Pancrelipase (Creon (Nf)) 36,000 units PO TID WITH MEALS SEJAL Pantoprazole Sodium (Protonix Tab*) 40 mg PO QAM SEJAL Polyethylene Glycol/Electrolytes (Miralax*) 17 gm PO DAILY PRN Trazodone HCl (Desyrel Tab*) 25 mg PO BEDTIME PRN Vital Signs: Temp Pulse Resp BP Pulse Ox 100.9 F 86 16 112/72 100 01/14/19 19:33 01/14/19 19:00 01/14/19 19:00 01/14/19 19:00 01/14/19 19:00 Oxygen Devices in Use Now: None Appearance: Pt sitting up in bed. No acute distress, mild discomfort. Pale. Eyes: No Scleral Icterus, PERRLA Ears/Nose/Mouth/Throat: NL Teeth, Lips, Gums, Clear Oropharnyx, Mucous Membranes Moist Neck: NL Appearance and Movements; NL JVP, Trachea Midline Respiratory: Symmetrical Chest Expansion and Respiratory Effort, Clear to Auscultation Cardiovascular: NL Sounds; No Murmurs; No JVD, RRR, No Edema Abdominal: NL Sounds; No Tenderness; No Distention, No Hepatosplenomegaly Extremities: No Edema, No Clubbing, Cyanosis, - - R shoulder with CDI dressing, cryo unit in place. Neurological: Alert and Oriented x 3 Result Diagrams: 01/14/19 16:04 01/14/19 05:37 Microbiology and Other Data: Microbiology 01/13/19 10:25 Anaerobic Culture - Preliminary Misc Source (See Comment) - Shoulder Right No Growth Day 1 01/13/19 10:25 Gram Stain - Final Shoulder Right Wound Culture - Preliminary No Growth Day 1 01/13/19 18:44 Nasal Screen MRSA (PCR) - Final Nasal Mrsa Not Detected Assess/Plan/Problems-Billing Assessment: - Patient Problems (1) History of revision of total shoulder arthroplasty Comment: -POD1 -Management per ortho team (2) Hypotension Comment: -Hypotension without response to IVF -Worsening anemia -1U PRBC given -BP improved -D/c IVF -Will continue to monitor H/H, BP (3) Anemia Comment: -Worsening anemia; likely post-op and partially dilutional -1U PRBC given; H/H improved -Continue to monitor need for more PRBC (4) Acute kidney injury Comment: -BONILLA, likely d/t anemia/hypovolemia -IVF continued throughout the day, d/c in evening -1U PRBC given -Recheck BMP in a.m. (5) Diabetes Comment: -BS 130-190 -Continue lispro ss (6) History of DVT (deep vein thrombosis) Comment: -Lovenox (7) History of pancreatitis Comment: -Creon (8) Chronic pain Comment: -Methadone -Breakthrough pain medication per ortho team (9) DVT prophylaxis Current Visit: No Status: Acute Code(s): Z29.9 - ENCOUNTER FOR PROPHYLACTIC MEASURES, UNSPECIFIED SNOMED Code(s): 970970982 Comment: - Lovenox (10) HTN (hypertension) Current Visit: No Status: Chronic Code(s): I10 - ESSENTIAL (PRIMARY) HYPERTENSION SNOMED Code(s): 49942201 Comment: - Normotensive on lisinopril (11) Full code status
--- NOTE | 2019-01-14 11:57 | OP ---
CC: PCP, Grisel Urena NP* DATE OF OPERATION: 01/13/19 - ROOM #[id number] DATE OF : 59 SURGEON: Wilder Suresh MD VOCATIONAL TEACHER: WILBER Rider. An greenhouse assistant was needed for the entirety of the case to help with position, retraction, and utilized throughout all portions of the case. ANESTHESIOLOGIST: Dr. Melgar. ANESTHESIA: General. 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 POST-OP DIAGNOSIS: Right shoulder failed total shoulder. OPERATIVE PROCEDURE: Right shoulder conversion to reverse with explant of the humeral and glenoid components and reverse shoulder replacement with cerclage wire of the proximal humerus. COMPLICATIONS: None. ESTIMATED BLOOD LOSS: Probably 400 cc. IMPLANTS USED: One Synthes cable, one Aequalis Perform reversed standard base plate size 29 with a size 40 interlocking screw, reversed standard glenosphere size 36 mm, Aequalis Flex Revive distal stem 13 x 90 with a 20-mm spacer. A PTC proximal body 13 mm size standard with 132.5-degree angle, reverse tray +6 and a reverse poly +6. OUTPUT: Drain x1. INDICATIONS: Facundo Morelos is a 63-year-old male who has had a previous history of a right shoulder total shoulder replacement that was done approximately 22 years ago at the age of 40 or 41. He has failed conservative management. He was told it was supposed to be revised at around 10 years postop , but he had other issues going on. He has had extensive medical history with multiple spine surgeries as well as partial occlusion of the vertebral artery and he is on chronic pain issues because of his back. After extensive discussion of the risks and benefits of surgical versus nonoperative treatment, he has elected to proceed with surgical treatment. We discussed the options include conversion to reverse. Unfortunately, he does not have a convertible stem and so this required removing the stem. We talked about the need for a possible osteotomy, which could cause a fracture of the humerus. We talked about the risks and benefits of surgery. Risks included but not limited to bleeding; infection; damage to nerves, vessels, surrounding structure; wound nonhealing; persistent pain; need for further surgery; scarring; stiffness; incomplete relief of symptoms; risks of anesthesia. We talked about dislocation , fracture, infection risk, need for further surgery, scarring, stiffness, incomplete relief of symptoms, risk of anesthesia, loss of motion, persistent pain, risk of DVT. After extensive discussion including the risks and benefits of surgery, he has elected to proceed. DISPOSITION: Initially, the patient was found to be stable in the PACU, but his blood pressures were low in about the 90s systolic and therefore Short Stay did not feel comfortable taking him, therefore he was transferred to the ICU. DESCRIPTION OF PROCEDURE: The patient was greeted in the preoperative area by the attending surgeon. Correct extremity was marked and consent was confirmed. The patient was brought back to the operating suite, where he was placed in supine position on the operating table. He then underwent general anesthesia and endotracheal intubation, after which he was appropriately positioned on the bed in lazy beach chair fashion. All bony prominences were padded and secured with pegboard. The right arm was prepped and draped in the usual sterile fashion, beginning with chlorhexidine soap, scrub, and alcohol wipe, and a final prep with ChloraPrep. After appropriate surgical pause indicating side, site, procedure, and administration of antibiotics, previous incision was marked up and was found to be too medial, therefore a new incision was made encompassing the coracoid as a guide. Soft tissues were carefully dissected to expose the deltopectoral interval. There was abundant scar at the interval, which was identified. The cephalic vein was identified and taken laterally with the deltoid. There was abundant significant adhesions that were present that took some time to break through. The Bradshaw and curved Frazier scissors were used to gently remove some of the subdeltoid adhesions to expose the humeral shaft. Once this was identified , the dissection was taken proximally beginning to remove the subdeltoid adhesions for which they were many and then medially to try to mobilize. Some proximal 1 cm was released with the pectoralis major. The tissue was little bit hard to work with and woody. The patient had superior humeral migration for numerous years, which caused lot of scarring that was present. Once the dissection was taken proximally, the rotator interval was identified. The cuff was found to be grossly intact, although it was scarred quite a bit, the subscap especially. The soft tissues were carefully released. Because we are doing a reverse, there was no need for the subscap, so therefore we released as much as the cuff from the humerus to allow for mobilization. CA ligament was also released. Care was taken not to damage the structures medially and care was taken on this dissection to be taken close to bone to prevent any damage to the nerves and vessels. The head was then externally rotated. Again, this was very superiorly migrated and scarred. The forked prong was then placed to separate and detach the head from the body. Once it was disengaged, it was removed. At this point, culture samples were sent for biopsy and culture gram stain to make sure there is no evidence of infection. These were done stat, but the results were not given intraoperatively. The head was then carefully exposed and then attention was directed to try to release the stem. Because this is a Sonia stem that is over 20 years old, it was well fixed proximally. Preoperatively on templating, the stem size was found to be very large for the canal. There was evidence of chronic changes that was apparent including the proximal third junction to the middle third shaft. There was evidence of bony changes, some stress reaction to the humeral prosthesis. The flexible osteotomes as well as other osteotomes were then carefully used to try to loosen the implant proximally. Various devices were tried to use to extract the stem, which was found to be very well fixed. At this point, another trial of more flexible osteotomes taken to remove and disengage the bony ingrowth from the first 2 to 3 cm was done, but unfortunately the pieces were not able to be disengaged. After extensive maneuvers trying other extraction techniques , other devices from our general devices including any screwing devices or vice human resource statistician, decision was made to do an osteotomy. Therefore, the sagittal saw was used to make a longitudinal cut down the lateral aspect of the bicipital groove. These were full thickness cuts taken down proximally 5 cm and then a small transverse cut at the end to allow for breakthrough point and to prevent any abnormal fracture pattern. Unfortunately, as the stem was being loosened up , the bone was very well fixed to the stem and the fracture did propagate but not distally. The bone quality was not great medially, but in the posterior aspect, there was very dense healing to the prosthesis. After some time, the osteotomes were used to disengage proximally, but the patient apparently had fixed distally in the bone. This was again probably due to the fact that the canal diameter was smaller than the implant placed previously, therefore there was some bony ingrowth or some bony healing. After the longer flexible osteotomes were placed down the shaft, eventually one of the extraction devices was used and removed the prosthesis. After the osteotomy was done, a Synthes cable was then placed proximally to allow for provisional fixation and to prevent further distraction of fracture into the fragments. Unfortunately, part of the fracture fragments from the pre-made osteotomy site propagated, but a cerclage wire had already been placed. So, the stem has now been extracted and attention was directed to the glenoid. The posterior retractor was placed. There was abundant scar tissue from the subscap to the anterior aspect of the glenoid. This was carefully dissected and care was taken to not damage the subscap or surrounding vessels. The glenoid neck retractor was then placed and the glenoid was exposed. The previous glenoid that had been cemented in was then carefully removed using an osteotome and levered out. Any excess cement was removed. This is a keeled glenoid. Any excess soft tissue and debris was removed and attention was directed to guidewire placement. A guidewire was placed inferiorly in the glenoid. The reamer was then used to ream the cartilage, after which drilling began beginning with the 8 mm drill bit and the size 9 mm drill was then used to drill bicortically. It was measured and a size 45 was found to be appropriate. The final implant was prepared in the back table for a 29 baseplate glenoid and a size 45 center screw. This was then placed with excellent purchase with good bony fixation. Four interlocking screws were placed bicortically with good purchase. The 36 mm glenosphere was then impacted , positioned, and secured with the setscrew. It was found to be well fixed. Attention was directed back to the humerus. The humerus was brought through the wound. Again there were numerous pieces. At this point, the concern was stem trialing. While we was trialing the sizing devices, it was determined that the canal was blocked from a bony wedge that was made at the inferior aspect of the previous implant. This required being broken through. Therefore, a 6.5 mm drill was then used to drill this and then curette and different devices were used to try to widen this with care not to cause a fracture distally. Once this was loosened, the sizing devices were passed through the canal. Size 13 was actually found to be good diaphyseal fit and this was passed the length of the first stem. The trial device was then placed and provisionally reduced. An x-ray was taken at this time to make sure that there was no fracture distal to the previously made osteotomy site, which there was not, but there was comminution of the pieces that had previously fractured and there was no evidence of mid shaft or distal shaft fracture and there was evidence that the trial stem did go past the end of the original stem. The shoulder was taken through provisional reduction. It was found to be too loose. Therefore, the decision was made that the height was not appropriate and therefore a size 20 mm spacer was then placed and trialing began and it was much more appropriate against this diaphyseal fixed implant as opposed to metaphyseal. The trialing continued until appropriate shuck and fit were found with +6 center tray and a +6 poly. An x- ray was taken to confirm the height, which was found to be appropriate. There was appropriate amount of shuck and I was able to forward flex the shoulder to about 160, abduct to 100, externally rotate to about 45. The final implants were then chosen and then prepared in the back table by the surgeon. The trial stem was placed with a retroversion of approximately 30 degrees. The final baseplate was then impacted into position as well as the poly. The shoulder was then reduced again and found to have symmetric range of motion and appropriate reduction. At this point, the cerclage wire was then tightened to allow for the bony fragments to secure around to allow to heal to the prosthesis. The intact stem was covered with bone and ostomy site was closed, although this was fractured in spite of the osteotomy site as well. This allowed for a well-fixed implant. There was unified motion of the entire humerus. Shoulder was taken through range of motion. The wounds were then copiously irrigated with sterile saline. An intraarticular drain was placed. The wounds were irrigated again. The deltopectoral interval was then closed with #2 Ethibond suture. The skin was closed in layers with 3-0 Monocryl and then 3-0 nylon. There was some swelling of the arm. Sterile dressings were applied and Cryo/Cuff. The wound was injected with 0.2% ropivacaine for pain control. The patient was awoken from anesthesia and transferred to the PACU in stable condition, but then ended up becoming guarded because his blood pressures remained low. POSTOPERATIVE PLAN: He will be nonweightbearing. He will be in the sling for 6 weeks. He will be discharged on pain medication. DVT prophylaxis was considered. The patient does have a history of DVT, so we will place him on Lovenox for at least 4 weeks postop. He is going to be in the ICU at least overnight because of his low blood pressures and a postop hematocrit was checked to be about 26. X-rays were reviewed that demonstrate satisfactory alignment. The dressing change will be on postop day 2. He will be on 24 hours postoperative antibiotics. The Wang will be discontinued on postop day 1. We will continue to follow the patient in the hospital. We will ask for hospital consults to help marielage. [id number]/[facility] #: [id number] VEE
[2019-01-14] MEDS: Pancrelipase (NF) 12,000 UNITS CAP.DR PO SCH ×2 (12:48→17:52)
[2019-01-14] MEDS: Enoxaparin(*) 40 MG/0.4 ML SYR SUBCUT SCH (13:08)
[2019-01-14] MEDS ORDERED: Lisinopril TAB* 10 MG PO SCH (14:00)
[2019-01-14] MEDS ORDERED: amLODIPine TAB* 5 MG PO SCH (14:00)
[2019-01-14] MEDS: Cyanocobalamin TAB* 500 MCG PO SCH (14:20)
[2019-01-14 16:22] LABS: Hematocrit 25 % (42-52); Hemoglobin 8.5 g/dL (14.0-18.0)
[2019-01-14] MEDS: oxyCODONE TAB* 5 MG TAB PO PRN (19:51)
[2019-01-15 00:17] LABS: Hematocrit 24 % (42-52); Hemoglobin 8.2 g/dL (14.0-18.0)
[2019-01-15] MEDS: oxyCODONE TAB* 5 MG TAB PO PRN ×4 (01:03→16:07)
[2019-01-15] MEDS: Morphine INJ* 2 MG/ML 1 ML SYRINGE (TWO MG - NEW SYRINGE VERSION) IV PRN ×4 (03:11→18:04)
[2019-01-15] MEDS: HYDROcodone/ACETAMIN 5-325 MG* 1 TAB PO PRN ×2 (04:04→08:17)
[2019-01-15] MEDS: Cyclobenzaprine TAB* 10 MG PO PRN ×3 (04:08→20:28)
[2019-01-15] MEDS: Levothyroxine TAB* 75 MCG TAB PO SCH (06:04)
[2019-01-15] MEDS: Acetaminophen TAB* 325 MG PO SCH ×2 (06:05→13:02)
[2019-01-15 06:17] LABS: BUN/Creatinine Ratio 17.7 (8-20); Calcium 7.8 mg/dL (8.6-10.3); EGFR African American 79.8 (>60); Potassium 4.5 mmol/L (3.5-5.0)
[2019-01-15 06:25] LABS: Hematocrit 23 % (42-52); Hemoglobin 7.9 g/dL (14.0-18.0); Mean Platelet Volume 9.1 fL (7.4-10.4); Platelet Count 68 10^3/uL (150-450)
[2019-01-15] MEDS: Insulin LISPRO* 1 UNITS UNIT SUBCUT SCH ×4 (07:13→23:11)
[2019-01-15] MEDS: Docusate CAP* 100 MG PO SCH ×2 (08:11→22:39)
[2019-01-15] MEDS: Cholecalciferol TAB* 1000 UNITS PO SCH (08:16)
[2019-01-15] MEDS: lamoTRIgine TAB(*) 100 MG PO SCH ×2 (08:17→22:34)
[2019-01-15] MEDS: Vitamin THERAPEUTIC TAB PO SCH (08:17)
[2019-01-15] MEDS: Magnesium Oxide TAB* 400 MG PO SCH ×2 (08:17→22:34)
[2019-01-15] MEDS: Methadone TAB* 10 MG PO SCH ×3 (08:18→22:35)
[2019-01-15] MEDS: Pantoprazole TAB * 40 MG TAB PO SCH (08:18)
[2019-01-15] MEDS: Pancrelipase (NF) 12,000 UNITS CAP.DR PO SCH ×3 (08:19→15:55)
[2019-01-15] MEDS ORDERED: oxyCODONE/Acetamin 5/325 MG* TAB PO PRN (10:57)
[2019-01-15] MEDS: Enoxaparin(*) 40 MG/0.4 ML SYR SUBCUT SCH (11:51)
[2019-01-15] MEDS: oxyCODONE/Acetamin 5/325 MG* TAB PO PRN ×2 (11:51→20:28)
[2019-01-15 12:28] LABS: Hematocrit 24 % (42-52)
--- NOTE | 2019-01-15 13:29 | PN ---
Subjective Date of Service: 01/15/19 Interval History: Pt continues to have pain in the R shoulder, rated at 5-6/10 now, but excruciating prior to percocet. He notes that pain is worse overnight and he is unable to find a comfortable position. He has cryo unit in place, but notes that he cannot feel this through dressing. He c/o headache. He has not been up walking today. He had a BM 2 days ago and is urinating ok. He has no other complaints today, and denies dizziness, lightheadedness, LOC, melena, hematochezzia. Objective Active Medications: Acetaminophen (Tylenol Tab*) 975 mg PO Q8HR SEJAL Bisacodyl (Dulcolax Supp*) 10 mg SD DAILY PRN Cholecalciferol (Vitamin D Tab*) 1,000 units PO QAM SEJAL Cyanocobalamin (Vitamin B12 Tab*) 1,000 mcg PO 1400 SEJAL Cyclobenzaprine HCl (Flexeril Tab*) 10 mg PO Q6H PRN Dextrose (Dextrose 50% Vial 50 Ml*) 25 ml IV PUSH .FOR FS < 60 - SS PRN Diphenhydramine HCl (Benadryl Iv*) 25 mg IV Q6H PRN Diphenhydramine HCl (Benadryl Po*) 25 mg PO Q6H PRN Docusate Sodium (Colace Cap*) 100 mg PO BID SEJAL Enoxaparin Sodium (Lovenox(*)) 40 mg SUBCUT Q24H SEJAL Insulin Human Lispro (Humalog*) 0 units SUBCUT ACHS SEJAL; Protocol Lactulose (Lactulose*) 30 ml PO BID PRN Lamotrigine (Lamictal Tab(*)) 150 mg PO BID SEJAL Levothyroxine Sodium (Synthroid Tab*) 75 mcg PO 0600 SEJAL Magnesium Hydroxide (Milk Of Magnesia Liq*) 30 ml PO Q6H PRN Magnesium Oxide (Magox 400 Tab*) 400 mg PO QAM SEJAL Magnesium Oxide (Magox 400 Tab*) 800 mg PO 2100 SEJAL Methadone HCl (Dolophine Tab*) 40 mg PO 0900,1400 SEJAL Methadone HCl (Dolophine Tab*) 50 mg PO 2100 SEJAL Morphine Sulfate (Morphine Inj (Syringe))*) 2 mg IV Q4H PRN Multivitamins (Theragran Tab*) 1 tab PO DAILY SEJAL Oxycodone HCl (Roxycodone Tab*) 10 mg PO Q4H PRN Oxycodone/Acetaminophen (Percocet 5/325 Tab*) 1 tab PO Q4H PRN Oxycodone/Acetaminophen (Percocet 5/325 Tab*) 2 tab PO Q4H PRN Pancrelipase (Creon (Nf)) 36,000 units PO TID WITH MEALS SEJAL Pantoprazole Sodium (Protonix Tab*) 40 mg PO QAM SEJAL Polyethylene Glycol/Electrolytes (Miralax*) 17 gm PO DAILY PRN Trazodone HCl (Desyrel Tab*) 25 mg PO BEDTIME PRN Vital Signs: Temp Pulse Resp BP Pulse Ox 98.1 F 76 18 110/63 95 01/15/19 15:50 01/15/19 15:50 01/15/19 18:12 01/15/19 15:50 01/15/19 16:00 Oxygen Devices in Use Now: None Appearance: Pt is sitting up in bed, appears mildly uncomfortable. Pleasant, appropriate. Eyes: No Scleral Icterus, PERRLA Ears/Nose/Mouth/Throat: NL Teeth, Lips, Gums, Clear Oropharnyx, Mucous Membranes Moist Neck: NL Appearance and Movements; NL JVP, Trachea Midline Respiratory: Symmetrical Chest Expansion and Respiratory Effort, Clear to Auscultation Cardiovascular: NL Sounds; No Murmurs; No JVD, RRR, No Edema Abdominal: NL Sounds; No Tenderness; No Distention, No Hepatosplenomegaly Extremities: No Edema, No Clubbing, Cyanosis, - - R shoulder cryo unit in place. CDI dressing in place. Sensation intact distally. Neurological: Alert and Oriented x 3, NL Sensation Result Diagrams: 01/15/19 18:44 01/15/19 05:39 Microbiology and Other Data: Microbiology 01/13/19 10:25 Anaerobic Culture - Preliminary Misc Source (See Comment) - Shoulder Right No Growth Day 1 01/13/19 10:25 Gram Stain - Final Shoulder Right Wound Culture - Preliminary No Growth Day 1 01/13/19 18:44 Nasal Screen MRSA (PCR) - Final Nasal Mrsa Not Detected Assess/Plan/Problems-Billing Assessment: - Patient Problems (1) History of revision of total shoulder arthroplasty Comment: -POD2 -Management per ortho team (2) Hypotension Comment: -Hypotension without response to IVF -Worsening anemia; 1U PRBC given and BP improved -D/c IVF -Continue to monitor H/H and symptoms -BP stable (3) Anemia Comment: -Worsening anemia; likely post-op and partially dilutional -1U PRBC given; H/H improved -Continue to monitor need for additional PRBC (4) Acute kidney injury Comment: -BONILLA, likely d/t anemia/hypovolemia -IVF continued throughout the day, d/c in evening -1U PRBC given -Cr improved with PRBC, volume resuscitation -Resolved (5) HTN (hypertension) Comment: -Lisinopril on hold in light of hypotension (6) Diabetes Comment: -Well controlled, BS 130-150 -Continue lispro ss (7) History of DVT (deep vein thrombosis) Comment: -Lovenox (8) History of pancreatitis Comment: -Creon (9) Chronic pain Comment: -Methadone -Breakthrough pain medication per ortho team (10) DVT prophylaxis Comment: - Lovenox (11) Full code status
[2019-01-15] MEDS: Cyanocobalamin TAB* 500 MCG PO SCH (14:04)
--- NOTE | 2019-01-15 14:33 | PN ---
Progress Note - Progress Note Date of Service: 01/15/19 SOAP: Subjective: []Patient seen at bedside. He is complaining of severe pain. He is on Metadone baseline for chronic pain. He does not feel that his pain is managed enough to go home today. Objective: [] Vital Signs Temp 98.7 F 01/15/19 11:41 Pulse 81 01/15/19 11:41 Resp 18 01/15/19 14:04 BP 128/68 01/15/19 11:41 Pulse Ox 96 01/15/19 11:41 Intake & Output 01/14/19 01/15/19 01/15/19 18:59 06:59 18:59 Intake Total 2055 1080 Output Total 355 1780 1100 Balance 1700 -700 -1100 Intake: IV Fluids 900 ABX - CEFAZOLIN 100 LR 800 Oral 825 1080 Packed Cells 330 Output: Hemovac Amount #1 80 Urine 275 1780 1100 Laboratory Results - last 24 hr 01/14/19 01/14/19 01/14/19 05:37 16:04 16:07 Hgb 8.5 L Hct 25 L Plt Count MPV Sodium Potassium Chloride Carbon Dioxide Anion Gap BUN Creatinine Est GFR ( Amer) Est GFR (Non-Af Amer) BUN/Creatinine Ratio Glucose POC Glucose (mg/dL) 130 H Calcium Blood Type O Positive Antibody Screen Negative Crossmatch See Detail 01/14/19 01/15/19 01/15/19 22:13 00:12 05:39 Hgb 8.2 L 7.9 L Hct 24 L 23 L Plt Count 68 L MPV 9.1 Sodium Potassium Chloride Carbon Dioxide Anion Gap BUN Creatinine Est GFR ( Amer) Est GFR (Non-Af Amer) BUN/Creatinine Ratio Glucose POC Glucose (mg/dL) 132 H Calcium Blood Type Antibody Screen Crossmatch 01/15/19 01/15/19 05:39 12:07 Hgb 8.0 L Hct 24 L Plt Count MPV Sodium 138 Potassium 4.5 Chloride 108 Carbon Dioxide 26 Anion Gap 4 BUN 20 Creatinine 1.13 Est GFR ( Amer) 79.8 Est GFR (Non-Af Amer) 66.0 BUN/Creatinine Ratio 17.7 Glucose 112 H POC Glucose (mg/dL) Calcium 7.8 L Blood Type Antibody Screen Crossmatch Right shoulder dressings removed, wound is benign without active drainage moderate soft tissue edema sensation and circulation are intact distally, RUE moving hand well Hemovac drain removed without difficulty Assessment: s/p revision shoulder arthrplasty to reverse POD #2 Plan: []4x4s and Tegaderm applied Sling at all times Probable home 01/16/19 Followed by pain managment and has a prescription of hydrocodone at home upon discharge.
[2019-01-15] MEDS ORDERED: Bisacodyl SUPP* 10 MG SUPP PR PRN (15:18)
[2019-01-15 18:54] LABS: Hematocrit 23 % (42-52); Hemoglobin 7.7 g/dL (14.0-18.0)
[2019-01-16] MEDS: oxyCODONE TAB* 5 MG TAB PO PRN ×4 (00:22→18:12)
[2019-01-16] MEDS: Acetaminophen TAB* 325 MG PO SCH ×4 (01:58→21:45)
[2019-01-16] MEDS: Morphine INJ* 2 MG/ML 1 ML SYRINGE (TWO MG - NEW SYRINGE VERSION) IV PRN ×4 (02:07→21:40)
[2019-01-16] MEDS: Levothyroxine TAB* 75 MCG TAB PO SCH (06:25)
[2019-01-16] MEDS: oxyCODONE/Acetamin 5/325 MG* TAB PO PRN ×3 (06:25→15:44)
[2019-01-16 06:49] LABS: ABS Lymphocytes 0.7 10^3/ul (1.0-4.8); ABS Monocytes 0.4 10^3/ul (0-0.8); ABS Neutrophils 2.2 10^3/ul (1.5-7.7); Eosinophil % 0.6 %; Hematocrit 22 % (42-52); Hemoglobin 7.7 g/dL (14.0-18.0); Lymphocyte % 21.6 %; Mean Corpuscular HGB Conc 34 g/dL (31-36); Mean Corpuscular Hemoglobin 29 pg (27-31); Mean Corpuscular Volume 85 fL (80-94); Mean Platelet Volume 9.3 fL (7.4-10.4); Platelet Count 75 10^3/uL (150-450); Red Blood Count 2.62 10^6 /uL (4.18-5.48); Red Cell Distribution Width 16 % (10-15); White Blood Count 3.3 10^3/uL (3.5-10.8)
[2019-01-16] MEDS: Insulin LISPRO* 1 UNITS UNIT SUBCUT SCH ×4 (07:30→21:40)
[2019-01-16] MEDS: Pancrelipase (NF) 12,000 UNITS CAP.DR PO SCH ×3 (07:39→15:43)
[2019-01-16] MEDS: Cholecalciferol TAB* 1000 UNITS PO SCH (08:36)
[2019-01-16] MEDS: Magnesium Oxide TAB* 400 MG PO SCH ×2 (08:36→21:41)
[2019-01-16] MEDS: Methadone TAB* 10 MG PO SCH ×3 (08:36→21:42)
[2019-01-16] MEDS: lamoTRIgine TAB(*) 100 MG PO SCH ×2 (08:36→21:39)
[2019-01-16] MEDS: Vitamin THERAPEUTIC TAB PO SCH (08:37)
[2019-01-16] MEDS: Pantoprazole TAB * 40 MG TAB PO SCH (08:37)
[2019-01-16] MEDS: Docusate CAP* 100 MG PO SCH ×2 (08:38→21:41)
--- NOTE | 2019-01-16 10:08 | PN ---
Progress Note - Progress Note Date of Service: 01/16/19 SOAP: Subjective: []Patient seen at bedside, still with moderate shoulder pain. His H+H is running low, he is aymptomatic, no lightheadedness. Denies SOB, CP, nausea, vomiting. Objective: [] Vital Signs Temp 99.7 F 01/16/19 07:20 Pulse 86 01/16/19 07:20 Resp 18 01/16/19 08:37 BP 122/61 01/16/19 07:20 Pulse Ox 93 01/16/19 07:20 Intake & Output 01/15/19 01/16/19 01/16/19 18:59 06:59 18:59 Intake Total 0 340 240 Output Total 1100 200 600 Balance -1100 140 -360 Intake: IVPB 0 ABX - CEFAZOLIN 0 Oral 340 240 Output: Urine 1100 200 600 Laboratory Results - last 24 hr 01/15/19 01/15/19 01/15/19 12:07 17:56 18:44 WBC RBC Hgb 8.0 L 7.7 L Hct 24 L 23 L MCV MCH MCHC RDW Plt Count MPV Neut % (Auto) Lymph % (Auto) Mcdonough % (Auto) Eos % (Auto) Baso % (Auto) Absolute Neuts (auto) Absolute Lymphs (auto) Absolute Monos (auto) Absolute Eos (auto) Absolute Basos (auto) Absolute Nucleated RBC Nucleated RBC % POC Glucose (mg/dL) 133 H 01/15/19 01/16/19 01/16/19 19:31 06:08 07:29 WBC 3.3 L RBC 2.62 L Hgb 7.7 L Hct 22 L MCV 85 MCH 29 MCHC 34 RDW 16 H Plt Count 75 L MPV 9.3 Neut % (Auto) 66.3 Lymph % (Auto) 21.6 Mcdonough % (Auto) 11.2 Eos % (Auto) 0.6 Baso % (Auto) 0.3 Absolute Neuts (auto) 2.2 Absolute Lymphs (auto) 0.7 L Absolute Monos (auto) 0.4 Absolute Eos (auto) 0.0 Absolute Basos (auto) 0.0 Absolute Nucleated RBC 0.0 Nucleated RBC % 0.0 POC Glucose (mg/dL) 128 H 119 H Right shoulder dressings changed 01/15, dry and intact right arm and hand with some edema sensation intact distally 2+ radial pulse Assessment: []s/p revision reverse total shoulder arthroplasty Acute post operative anemia Plan: []Medical service would like to see H+H trend up prior to discharge home, patient in agreement Sling at all times but may be removed for skin care/ bathing. Recommend hand wrist motion , daily extension elbow. Lovenox while in house ANDRÉS VILLALOBOS Probable home 01/17
--- NOTE | 2019-01-16 10:12 | PN ---
Subjective Date of Service: 01/16/19 Interval History: Pt continues to have pain in R shoulder; he rates it at 8/10. He reports no BM in last 3 days. Denies melena, hematochezia, hematemesis. He has no other complaints today. Objective Active Medications: Acetaminophen (Tylenol Tab*) 975 mg PO Q8HR SEJAL Bisacodyl (Dulcolax Supp*) 10 mg [place] DAILY PRN Cholecalciferol (Vitamin D Tab*) 1,000 units PO QAM SEJAL Cyanocobalamin (Vitamin B12 Tab*) 1,000 mcg PO 1400 SE[facility]AL Cyclobenzaprine HCl (Flexeril Tab*) 10 mg PO Q6H PRN Dextrose (Dextrose 50% Vial 50 Ml*) 25 ml IV PUSH .FOR FS < 60 - SS PRN Diphenhydramine HCl (Benadryl Iv*) 25 mg IV Q6H PRN Diphenhydramine HCl (Benadryl Po*) 25 mg PO Q6H PRN Docusate Sodium (Colace Cap*) 100 mg PO BID SEJAL Enoxaparin Sodium (Lovenox(*)) 40 mg SUBCUT Q24H SEJAL Insulin Human Lispro (Humalog*) 0 units SUBCUT ACHS SEJAL; Protocol Lactulose (Lactulose*) 30 ml PO BID PRN Lamotrigine (Lamictal Tab(*)) 150 mg PO BID SEJAL Levothyroxine Sodium (Synthroid Tab*) 75 mcg PO 0600 SEJAL Magnesium Hydroxide (Milk Of Magnesia Liq*) 30 ml PO Q6H PRN Magnesium Oxide (Magox 400 Tab*) 400 mg PO QAM SEJAL Magnesium Oxide (Magox 400 Tab*) 800 mg PO 2100 SEJAL Methadone HCl (Dolophine Tab*) 40 mg PO 0900,1400 SEJAL Methadone HCl (Dolophine Tab*) 50 mg PO 2100 SEJAL Morphine Sulfate (Morphine Inj (Syringe))*) 2 mg IV Q4H PRN Multivitamins (Theragran Tab*) 1 tab PO DAILY SEJAL Oxycodone HCl (Roxycodone Tab*) 10 mg PO Q4H PRN Oxycodone/Acetaminophen (Percocet 5/325 Tab*) 1 tab PO Q4H PRN Oxycodone/Acetaminophen (Percocet 5/325 Tab*) 2 tab PO Q4H PRN Pancrelipase (Creon (Nf)) 36,000 units PO TID WITH MEALS SEJAL Pantoprazole Sodium (Protonix Tab*) 40 mg PO QAM SEJAL Polyethylene Glycol/Electrolytes (Miralax*) 17 gm PO DAILY PRN Trazodone HCl (Desyrel Tab*) 25 mg PO BEDTIME PRN Vital Signs: Temp Pulse Resp BP Pulse Ox 98.3 F 88 20 113/56 95 01/16/19 16:01 01/16/19 16:01 01/16/19 16:45 01/16/19 16:01 01/16/19 16:01 Oxygen Devices in Use Now: None Appearance: Pt is sitting up in bed. He appears mildly uncomfortable. Eyes: No Scleral Icterus, PERRLA Ears/Nose/Mouth/Throat: NL Teeth, Lips, Gums, Clear Oropharnyx, Mucous Membranes Moist Neck: NL Appearance and Movements; NL JVP, Trachea Midline Respiratory: Symmetrical Chest Expansion and Respiratory Effort, Clear to Auscultation Cardiovascular: NL Sounds; No Murmurs; No JVD, RRR, No Edema Abdominal: NL Sounds; No Tenderness; No Distention, No Hepatosplenomegaly Extremities: No Edema, No Clubbing, Cyanosis, - - R shoulder with CDI dressing in place; cryo unit in place Neurological: Alert and Oriented x 3 Result Diagrams: 01/16/19 06:08 01/15/19 05:39 Microbiology and Other Data: Microbiology 01/13/19 10:25 Anaerobic Culture - Preliminary Misc Source (See Comment) - Shoulder Right No Growth Day 1 01/13/19 10:25 Gram Stain - Final Shoulder Right Wound Culture - Preliminary No Growth Day 1 01/13/19 18:44 Nasal Screen MRSA (PCR) - Final Nasal Mrsa Not Detected Assess/Plan/Problems-Billing Assessment: 63yom PMHxchronic back pain, HTN, HLD presents for R shoulder revision, found to be hypotensive, anemic post-operatively. - Patient Problems (1) History of revision of total shoulder arthroplasty Comment: -POD 3 R shoulder revision -Management per ortho team (2) Hypotension Comment: -Hypotension without response to IVF -Worsening anemia; 1U PRBC given and BP improved -D/c IVF -Continue to monitor H/H and symptoms -BP stable (3) Anemia Comment: -Worsening anemia; likely post-op and partially dilutional -1U PRBC given; H/H improved -Continue to monitor need for additional PRBC (4) HTN (hypertension) Comment: -Lisinopril on hold in light of hypotension, now normotensive (5) Diabetes Comment: -Well controlled, BS 130-150 -Continue lispro ss (6) History of DVT (deep vein thrombosis) Comment: -Lovenox (7) History of pancreatitis Comment: -Creon (8) Chronic pain Comment: -Methadone -Breakthrough pain medication per ortho team (9) DVT prophylaxis Comment: - Lovenox (10) Full code status
[2019-01-16] MEDS: Cyanocobalamin TAB* 500 MCG PO SCH (13:12)
[2019-01-16] MEDS: Enoxaparin(*) 40 MG/0.4 ML SYR SUBCUT SCH (13:13)
[2019-01-17] MEDS: oxyCODONE/Acetamin 5/325 MG* TAB PO PRN ×4 (01:05→15:34)
[2019-01-17] MEDS: Cyclobenzaprine TAB* 10 MG PO PRN ×2 (01:05→11:02)
[2019-01-17] MEDS: Morphine INJ* 2 MG/ML 1 ML SYRINGE (TWO MG - NEW SYRINGE VERSION) IV PRN ×2 (03:14→17:30)
[2019-01-17] MEDS: Acetaminophen TAB* 325 MG PO SCH ×3 (05:34→21:44)
[2019-01-17] MEDS: Levothyroxine TAB* 75 MCG TAB PO SCH (05:54)
[2019-01-17 06:24] LABS: Hematocrit 21 % (42-52); Hemoglobin 7.2 g/dL (14.0-18.0); Mean Platelet Volume 9.1 fL (7.4-10.4); Platelet Count 74 10^3/uL (150-450)
[2019-01-17] MEDS: Insulin LISPRO* 1 UNITS UNIT SUBCUT SCH ×4 (07:20→21:48)
[2019-01-17] MEDS: oxyCODONE TAB* 5 MG TAB PO PRN ×3 (08:02→17:33)
[2019-01-17] MEDS: Pancrelipase (NF) 12,000 UNITS CAP.DR PO SCH ×3 (08:05→15:30)
[2019-01-17] MEDS: Pantoprazole TAB * 40 MG TAB PO SCH (08:50)
[2019-01-17] MEDS: Methadone TAB* 10 MG PO SCH ×3 (08:50→21:46)
[2019-01-17] MEDS: Docusate CAP* 100 MG PO SCH ×2 (08:50→21:44)
[2019-01-17] MEDS: Magnesium Oxide TAB* 400 MG PO SCH ×2 (08:50→21:46)
[2019-01-17] MEDS: Vitamin THERAPEUTIC TAB PO SCH (08:51)
[2019-01-17] MEDS: Cholecalciferol TAB* 1000 UNITS PO SCH (08:51)
[2019-01-17] MEDS: lamoTRIgine TAB(*) 100 MG PO SCH ×2 (08:51→21:45)
--- NOTE | 2019-01-17 10:07 | PN ---
Progress Note - Progress Note Date of Service: 01/17/19 SOAP: Subjective: []Patient seen at bedside, he still is complaining of moderate to sever shoulder pain at times. currently compfortable resting in bed. Sling donned. He continues to deny lightheadedness upon ambulation or while resting. His H+H has been trending down, stool guaiac ordered yesterday and still pending. Objective: [] Vital Signs Temp 98.3 F 01/17/19 07:51 Pulse 84 01/17/19 08:10 Resp 18 01/17/19 08:50 BP 123/71 01/17/19 07:51 Pulse Ox 94 01/17/19 07:51 Intake & Output 01/16/19 01/17/19 01/17/19 18:59 06:59 18:59 Intake Total 600 1200 320 Output Total 1400 655 Balance -800 545 320 Intake: Oral 600 1200 320 Output: Urine 1400 655 Laboratory Results - last 24 hr 01/16/19 01/16/19 01/17/19 11:51 16:49 05:35 Hgb 7.2 L Hct 21 L Plt Count 74 L MPV 9.1 POC Glucose (mg/dL) 161 H 133 H Right shoulder dressing remains dry and intact edema in arm and hand mildly improved today full sensation and circulation distal RUE Assessment: []s/p revision reverse shoulder arthroplasty POD #4 anemia, probable acute surgical blood loss- stool guaiac pending per medicine Plan: []Spoke with Amparo Condon PA-C, will wait for stool guaiac and re check H+H , prefers this to trend up prior to discharge Continue with shoulder immobilizer at all times except skin care/ bathing Continue ROM wrist and hand Probable discharge home tomorrow if medically stable
[2019-01-17] MEDS: Cyanocobalamin TAB* 500 MCG PO SCH (13:10)
[2019-01-17] MEDS: Enoxaparin(*) 40 MG/0.4 ML SYR SUBCUT SCH (13:12)
[2019-01-17] MEDS: Magnesium Hydroxide LIQ* 30 ML UDC PO PRN ×2 (15:36→21:44)
[2019-01-17 16:58] LABS: Hematocrit 23 % (42-52); Hemoglobin 7.6 g/dL (14.0-18.0)
[2019-01-18] MEDS: oxyCODONE TAB* 5 MG TAB PO PRN ×4 (00:25→20:08)
[2019-01-18 05:12] LABS: Hematocrit 21 % (42-52); Mean Platelet Volume 8.8 fL (7.4-10.4); Platelet Count 95 10^3/uL (150-450)
[2019-01-18] MEDS: Levothyroxine TAB* 75 MCG TAB PO SCH (05:25)
[2019-01-18] MEDS: Acetaminophen TAB* 325 MG PO SCH ×3 (05:27→21:42)
[2019-01-18] MEDS: Pancrelipase (NF) 12,000 UNITS CAP.DR PO SCH ×2 (07:22→10:18)
[2019-01-18] MEDS: Insulin LISPRO* 1 UNITS UNIT SUBCUT SCH ×4 (07:39→21:35)
[2019-01-18] MEDS: Vitamin THERAPEUTIC TAB PO SCH (07:54)
[2019-01-18] MEDS: lamoTRIgine TAB(*) 100 MG PO SCH ×2 (07:54→20:08)
[2019-01-18] MEDS: Pantoprazole TAB * 40 MG TAB PO SCH (07:54)
[2019-01-18] MEDS: Cholecalciferol TAB* 1000 UNITS PO SCH (07:54)
[2019-01-18] MEDS: Docusate CAP* 100 MG PO SCH ×2 (07:54→20:08)
[2019-01-18] MEDS: Cyclobenzaprine TAB* 10 MG PO PRN ×2 (07:54→18:27)
[2019-01-18] MEDS: Methadone TAB* 10 MG PO SCH ×3 (07:55→21:36)
[2019-01-18] MEDS: Magnesium Oxide TAB* 400 MG PO SCH ×2 (07:55→20:08)
--- NOTE | 2019-01-18 09:20 | PN ---
Subjective Date of Service: 01/18/19 Interval History: Patient tells me he walked 5 labs around the unit, but felt somewhat lightheaded during this. Denies SOB and chest pain. Denies abd pain, n/v. Had 2 BM yesterday. Denies hematochezia and melena. He feels he has been having breakthrough pain that wakes him up from sleep at times, asks if he could have morphine. It is already ordered prn for breakthrough and we discussed this. Objective Active Medications: Acetaminophen (Tylenol Tab*) 975 mg PO Q8HR [facility] Last Admin: 01/18/19 05:27 Dose: Not Given Bisacodyl (Dulcolax Supp*) 10 mg [place] DAILY PRN PRN Reason: CONSTIPATION Cholecalciferol (Vitamin D Tab*) 1,000 units PO QAM [facility] Last Admin: 01/18/19 07:54 Dose: 1,000 units Cyanocobalamin (Vitamin B12 Tab*) 1,000 mcg PO 1400 [facility] Last Admin: 01/17/19 13:10 Dose: 1,000 mcg Cyclobenzaprine HCl (Flexeril Tab*) 10 mg PO Q6H PRN PRN Reason: SPASMS Last Admin: 01/18/19 07:54 Dose: 10 mg Dextrose (Dextrose 50% Vial 50 Ml*) 25 ml IV PUSH .FOR FS < 60 - SS PRN PRN Reason: FS < 60 Diphenhydramine HCl (Benadryl Iv*) 25 mg IV Q6H PRN PRN Reason: PRURITIS Diphenhydramine HCl (Benadryl Po*) 25 mg PO Q6H PRN PRN Reason: PRURITIS Docusate Sodium (Colace Cap*) 100 mg PO BID [facility] Last Admin: 01/18/19 07:54 Dose: 100 mg Enoxaparin Sodium (Lovenox(*)) 40 mg SUBCUT Q24H [facility] Last Admin: 01/17/19 13:12 Dose: 40 mg Insulin Human Lispro (Humalog*) 0 units SUBCUT ACHS [facility]; Protocol Last Admin: 01/18/19 07:39 Dose: Not Given Lactulose (Lactulose*) 30 ml PO BID PRN PRN Reason: CONSTIPATION Last Admin: 01/17/19 21:44 Dose: 30 ml Lamotrigine (Lamictal Tab(*)) 150 mg PO BID [facility] Last Admin: 01/18/19 07:54 Dose: 150 mg Levothyroxine Sodium (Synthroid Tab*) 75 mcg PO 0600 [facility] Last Admin: 01/18/19 05:25 Dose: 75 mcg Magnesium Hydroxide (Milk Of Magnesia Liq*) 30 ml PO Q6H PRN PRN Reason: CONSTIPATION Last Admin: 01/17/19 21:44 Dose: 30 ml Magnesium Oxide (Magox 400 Tab*) 400 mg PO QAM [facility] Last Admin: 01/18/19 07:55 Dose: 400 mg Magnesium Oxide (Magox 400 Tab*) 800 mg PO 2100 [facility] Last Admin: 01/17/19 21:46 Dose: 800 mg Methadone HCl (Dolophine Tab*) 40 mg PO 0900,1400 [facility] Last Admin: 01/18/19 07:55 Dose: 40 mg Methadone HCl (Dolophine Tab*) 50 mg PO 2100 [facility] Last Admin: 01/17/19 21:46 Dose: 50 mg Morphine Sulfate (Morphine Inj (Syringe))*) 2 mg IV Q4H PRN PRN Reason: Pain - Unrelieved Last Admin: 01/17/19 17:30 Dose: 2 mg Multivitamins (Theragran Tab*) 1 tab PO DAILY [facility] Last Admin: 01/18/19 07:54 Dose: 1 tab Oxycodone HCl (Roxycodone Tab*) 10 mg PO Q4H PRN PRN Reason: Pain - Breakthrough Last Admin: 01/18/19 05:25 Dose: 10 mg Oxycodone/Acetaminophen (Percocet 5/325 Tab*) 1 tab PO Q4H PRN PRN Reason: PAIN - MODERATE Oxycodone/Acetaminophen (Percocet 5/325 Tab*) 2 tab PO Q4H PRN PRN Reason: PAIN - SEVERE Last Admin: 01/17/19 15:34 Dose: 2 tab Pancrelipase (Creon (Nf)) 36,000 units PO TID WITH MEALS [facility] Last Admin: 01/18/19 07:22 Dose: Not Given Pantoprazole Sodium (Protonix Tab*) 40 mg PO QAM [facility] Last Admin: 01/18/19 07:54 Dose: 40 mg Polyethylene Glycol/Electrolytes (Miralax*) 17 gm PO DAILY PRN PRN Reason: Constipation Last Admin: 01/17/19 08:51 Dose: 17 gm Trazodone HCl (Desyrel Tab*) 25 mg PO BEDTIME PRN PRN Reason: insomnia Last Admin: 01/17/19 21:47 Dose: 25 mg Vital Signs - 8 hr 01/18/19 01/18/19 01/18/19 03:53 05:25 05:27 Temperature 98.9 F Pulse Rate 79 Respiratory 14 18 18 Rate Blood Pressure 112/60 (mmHg) O2 Sat by Pulse 94 Oximetry 01/18/19 01/18/19 01/18/19 07:21 07:22 07:54 Temperature 99.8 F Pulse Rate 76 Respiratory 14 18 18 Rate Blood Pressure 109/64 (mmHg) O2 Sat by Pulse 96 Oximetry 01/18/19 07:55 Temperature Pulse Rate Respiratory 18 Rate Blood Pressure (mmHg) O2 Sat by Pulse Oximetry Oxygen Devices in Use Now: None Appearance: White male, sitting upright over side of bed, appearing in NAD Eyes: No Scleral Icterus, PERRLA Ears/Nose/Mouth/Throat: Mucous Membranes Moist Neck: NL Appearance and Movements; NL JVP Respiratory: Symmetrical Chest Expansion and Respiratory Effort, Clear to Auscultation Cardiovascular: NL Sounds; No Murmurs; No JVD, RRR Abdominal: - - abd soft, nontender, nondistended Extremities: No Edema, No Clubbing, Cyanosis, - - right shoulder in sling Skin: No Rash or Ulcers Neurological: Alert and Oriented x 3, NL Muscle Strength and Tone Result Diagrams: 01/18/19 12:55 01/15/19 05:39 Microbiology and Other Data: Microbiology 01/13/19 10:25 Anaerobic Culture - Preliminary Misc Source (See Comment) - Shoulder Right No Growth Day 1 01/13/19 10:25 Gram Stain - Final Shoulder Right Wound Culture - Preliminary No Growth Day 1 01/13/19 18:44 Nasal Screen MRSA (PCR) - Final Nasal Mrsa Not Detected Assess/Plan/Problems-Billing Assessment: 63yom PMHxchronic back pain, HTN, HLD presents for R shoulder revision, found to be hypotensive and anemic post-operatively. Hypotension has since resolved. - Patient Problems (1) Anemia Current Visit: Yes Status: Acute Code(s): D64.9 - ANEMIA, UNSPECIFIED SNOMED Code(s): 485698426 Comment: -Likely 2/2 to blood loss during surgery -1 PRBC given 01/14/19 with initial good response, but now continuing to downtrend. This is likely not dilutional as patient is not receiving IVF -Stool guaiac negative, pt denies hematochezia/melena -Repeat H&H this afternoon is far improved and stable. Patient appears safe for discharge at this point but should have close follow up with PCP for repeat CBC and additional workup of this anemia, including colonoscopy if he has not had one recently. -Iron studies with low end of normal ferritin and patient likely has iron deficiency anemia. He has been taking po iron but this is possibly not being absorbed due to PPI use -Additionally, patient has had thrombocytopenia in combination. This may be an adverse effect of his lamotrigine (2) Hypothyroidism Current Visit: Yes Status: Acute Code(s): E03.9 - HYPOTHYROIDISM, UNSPECIFIED SNOMED Code(s): 84005317 Comment: -Continue home synthroid (3) Diabetes Current Visit: Yes Status: Acute Code(s): E11.9 - TYPE 2 DIABETES MELLITUS WITHOUT COMPLICATIONS SNOMED Code(s): 23730662 Comment: -Overall well controlled BGs -Continue Lispro SS -Home metformin held (4) Chronic back pain Current Visit: No Status: Chronic Code(s): M54.9 - DORSALGIA, UNSPECIFIED; G89.29 - OTHER CHRONIC PAIN SNOMED Code(s): 645100748 Comment: -patient takes methadone at home, continued (5) HTN (hypertension) Current Visit: No Status: Chronic Code(s): I10 - ESSENTIAL (PRIMARY) HYPERTENSION SNOMED Code(s): 30244086 Comment: -overall normotensive, continuing to hold home lisinopril (6) History of revision of total shoulder arthroplasty Current Visit: Yes Status: Acute Code(s): Z96.619 - PRESENCE OF UNSPECIFIED ARTIFICIAL SHOULDER JOINT SNOMED Code(s): 811393744 Comment: -on 01/13/[address] Suresh -Management per ortho team (7) DVT prophylaxis Current Visit: No Status: Acute Code(s): Z29.9 - ENCOUNTER FOR PROPHYLACTIC MEASURES, UNSPECIFIED SNOMED Code(s): 283800941 Comment: - Lovenox (8) Full code status Current Visit: Yes Status: Acute Code(s): Z78.9 - OTHER SPECIFIED HEALTH STATUS SNOMED Code(s): 180818142 Status and Disposition: Anticipate d/c when H&H is stable, is otherwise clear from an orthopedic standpoint
[2019-01-18] MEDS: oxyCODONE/Acetamin 5/325 MG* TAB PO PRN ×2 (10:04→17:35)
--- NOTE | 2019-01-18 12:07 | PN ---
Progress Note - Progress Note Date of Service: 01/18/19 SOAP: Subjective: []Pt seen at bedside. He feels well without CP, SOB, dizziness, nausea. R shoulder pain is well controlled, though he has been requesting PRN IV morphine. Objective: []Gen: Appears well, NAD R shoulder dressing CDI, sensation intact to light touch distally, f/e at MTPs intact. radial pulse 2+ Calves supple and nontender without erythema, edema or palpable cords Assessment: []s/p revision reverse shoulder arthroplasty POD #5 anemia, probable acute surgical blood loss Plan: []Spoke with Amparo Condon PA-C regarding H&H, prefers this to trend up prior to discharge Continue with shoulder immobilizer at all times except skin care/ bathing. no ROM and NWB RUE Continue ROM wrist and hand Probable discharge home tomorrow if medically stable lovenox x 4 weeks post op as long as H&H stable to give Vital Signs Temp 98.7 F 01/18/19 12:05 Pulse 78 01/18/19 12:05 Resp 16 01/18/19 12:05 BP 113/60 01/18/19 12:05 Pulse Ox 95 01/18/19 12:05 Intake & Output 01/17/19 01/18/19 01/18/19 18:59 06:59 18:59 Intake Total 320 200 Output Total 775 600 Balance -455 -400 Intake: Oral 320 200 Output: Urine 775 600 Other: Estimated Void Medium Date of Last Bowel 01/17/2019 Movement # Bowel Movements 1 Estimated Stool Amount Small # Voids 5 Laboratory Last Values WBC 3.3 10^3/uL (3.5-10.8) L 01/16/19 06:08 RBC 2.62 10^6 /uL (4.18-5.48) L 01/16/19 06:08 Hgb 7.0 g/dL (14.0-18.0) L 01/18/19 04:42 Hct 21 % (42-52) L 01/18/19 04:42 MCV 85 fL (80-94) 01/16/19 06:08 MCH 29 pg (27-31) 01/16/19 06:08 MCHC 34 g/dL (31-36) 01/16/19 06:08 RDW 16 % (10-15) H 01/16/19 06:08 Plt Count 95 10^3/uL (150-450) L 01/18/19 04:42 MPV 8.8 fL (7.4-10.4) 01/18/19 04:42 Neut % (Auto) 66.3 % 01/16/19 06:08 Lymph % (Auto) 21.6 % 01/16/19 06:08 [place] % (Auto) 11.2 % 01/16/19 06:08 Eos % (Auto) 0.6 % 01/16/19 06:08 Baso % (Auto) 0.3 % 01/16/19 06:08 Absolute Neuts (auto) 2.2 10^3/ul (1.5-7.7) 01/16/19 06:08 Absolute Lymphs (auto) 0.7 10^3/ul (1.0-4.8) L 01/16/19 06:08 Absolute Monos (auto) 0.4 10^3/ul (0-0.8) 01/16/19 06:08 Absolute Eos (auto) 0.0 10^3/ul (0-0.6) 01/16/19 06:08 Absolute Basos (auto) 0.0 10^3/ul (0-0.2) 01/16/19 06:08 Absolute Nucleated RBC 0.0 10^3/ul 01/16/19 06:08 Nucleated RBC % 0.0 01/16/19 06:08 Sodium 138 mmol/L (135-145) 01/15/19 05:39 Potassium 4.5 mmol/L (3.5-5.0) 01/15/19 05:39 Chloride 108 mmol/L (101-111) 01/15/19 05:39 Carbon Dioxide 26 mmol/L (22-32) 01/15/19 05:39 Anion Gap 4 mmol/L (2-11) 01/15/19 05:39 BUN 20 mg/dL (6-24) 01/15/19 05:39 Creatinine 1.13 mg/dL (0.67-1.17) 01/15/19 05:39 Est GFR ( Amer) 79.8 (>60) 01/15/19 05:39 Est GFR (Non-Af Amer) 66.0 (>60) 01/15/19 05:39 BUN/Creatinine Ratio 17.7 (8-20) 01/15/19 05:39 Glucose 112 mg/dL (70-100) H 01/15/19 05:39 POC Glucose (mg/dL) 182 mg/dL (70-100) H 01/18/19 07:37 Calcium 7.8 mg/dL (8.6-10.3) L 01/15/19 05:39 Blood Type O Positive 01/14/19 05:37 Antibody Screen Negative 01/14/19 05:37 Crossmatch See Detail 01/14/19 05:37
--- NOTE | 2019-01-18 12:45 | PN ---
Progress Note - Progress Note Date of Service: 01/18/19 Note: Pt still admitted for acute blood loss anemia. D/C'd lovenox as this could contribute. Will follow patient.
[2019-01-18] MEDS: PANCRELIPASE 12000 UNIT PO SCH ×2 (12:53→18:24)
[2019-01-18] MEDS: Enoxaparin(*) 40 MG/0.4 ML SYR SUBCUT SCH (12:54)
[2019-01-18 13:05] LABS: ABS Eosinophils 0.3 10^3/ul (0-0.6); ABS Lymphocytes 1.1 10^3/ul (1.0-4.8); ABS Monocytes 0.4 10^3/ul (0-0.8); Corrected Retic Count 1.2 % (0.5-1.5); Eosinophil % 4.4 %; Hematocrit 25 % (42-52); Hematocrit for Retic CNT 25 % (42-52); Hemoglobin 8.5 g/dL (14.0-18.0); Immature Retic Fraction 0.54; Lymphocyte % 19.2 %; Mean Corpuscular HGB Conc 34 g/dL (31-36); Mean Corpuscular Hemoglobin 29 pg (27-31); Mean Corpuscular Volume 86 fL (80-94); Mean Platelet Volume 8.7 fL (7.4-10.4); Nucleated Red Blood Cells % 0.1; Platelet Count 180 10^3/uL (150-450); RBC Retic Count 2.95 10^6/uL (4.18-5.48); Red Blood Count 2.95 10^6 /uL (4.18-5.48); Red Cell Distribution Width 16 % (10-15); White Blood Count 5.8 10^3/uL (3.5-10.8)
[2019-01-18 14:11] LABS: Total Iron Binding Capacity 290 mcg/dL (250-450); Transferrin 207 mg/dL (203-362)
[2019-01-18 14:13] LABS: % Iron Saturation 7 % (15-55); Iron < 20 ug/dL (50-212)
[2019-01-18 14:23] LABS: Ferritin 51.7 ng/mL (24-336)
[2019-01-18] MEDS: Cyanocobalamin TAB* 500 MCG PO SCH (14:43)
[2019-01-18] MEDS: Morphine INJ* 2 MG/ML 1 ML SYRINGE (TWO MG - NEW SYRINGE VERSION) IV PRN (18:27)
--- NOTE | 2019-01-18 21:07 | PN ---
Progress Note - Progress Note Date of Service: 01/18/19 Note: Pt seen and examined. Doing ok. In pain and feels like "shoulder exploded". Also notes a rash in armpit. No fevers or chills. ACBLA with at least 1 transfusion. [place] dizzy while in bathroom getting cleaned up. at bedside. Denies numbness and tingling. No fevers or chills. Wants to go home. Temp Pulse Resp BP Pulse Ox 99.3 F 81 17 115/70 93 01/18/19 19:49 01/18/19 19:49 01/18/19 20:10 01/18/19 19:49 01/18/19 19:49 NAD. AAOx3. pleasant, conversant. RUE: incision clean, dry, and intact. Sensate to light touch about 1st dws, index and long finger, and ulnar aspect of small finger. 2+ radial pulse. some edema. warm and well perfused. in axilla evidence of dermatitis from swelling and sweating. placed shoulder in some abduction to allow air Laboratory Results - last 24 hr 01/17/19 01/18/19 01/18/19 21:14 04:42 07:37 WBC RBC RBC (Retic) Hgb 7.0 L Hct 21 L HCT (Retic) MCV MCH MCHC RDW Plt Count 95 L MPV 8.8 Neut % (Auto) Lymph % (Auto) [place] % (Auto) Eos % (Auto) Baso % (Auto) Absolute Neuts (auto) Absolute Lymphs (auto) Absolute Monos (auto) Absolute Eos (auto) Absolute Basos (auto) Absolute Nucleated RBC Nucleated RBC % Retic Count, Calc Corrected Retic Count Retic Shift Factor Retic Production Index Immature Retic Fraction Mean Retic Volume POC Glucose (mg/dL) 216 H 182 H Iron TIBC % Saturation Unsat Iron Binding Transferrin Ferritin 01/18/19 01/18/19 01/18/19 12:55 12:55 17:27 WBC 5.8 RBC 2.95 L RBC (Retic) 2.95 L Hgb 8.5 L Hct 25 L HCT (Retic) 25 L MCV 86 MCH 29 MCHC 34 RDW 16 H Plt Count 180 MPV 8.7 Neut % (Auto) 68.3 Lymph % (Auto) 19.2 [place] % (Auto) 7.6 Eos % (Auto) 4.4 Baso % (Auto) 0.5 Absolute Neuts (auto) 4.0 Absolute Lymphs (auto) 1.1 Absolute Monos (auto) 0.4 Absolute Eos (auto) 0.3 Absolute Basos (auto) 0.0 Absolute Nucleated RBC 0.0 Nucleated RBC % 0.1 Retic Count, Calc 2.1 H Corrected Retic Count 1.2 Retic Shift Factor 2.0 Retic Production Index 0.60 Immature Retic Fraction 0.54 Mean Retic Volume 100.2 POC Glucose (mg/dL) 132 H Iron < 20 L TIBC 290 % Saturation 7 L Unsat Iron Binding < 275 Transferrin 207 Ferritin 51.7 A/P s/p R shoulder revision and conversion to reverse arthroplasty ACBLA- started iron. stopped lovenox and started ASA will continue to follow HCT. pain- controlled here with medication and has appt with pain clinic on friday ice as needed ASA positioned shoulder to allow air to axilla potential d/c home tomorrow dressing as needed but can leave open to air pt allowed to shower.
[2019-01-18] MEDS: Ferrous Sulfate TAB* 325 MG PO SCH (21:36)
[2019-01-19] MEDS: Cyclobenzaprine TAB* 10 MG PO PRN (00:34)
[2019-01-19] MEDS: oxyCODONE/Acetamin 5/325 MG* TAB PO PRN ×2 (00:34→09:24)
[2019-01-19] MEDS: Morphine INJ* 2 MG/ML 1 ML SYRINGE (TWO MG - NEW SYRINGE VERSION) IV PRN (02:18)
[2019-01-19] MEDS: Levothyroxine TAB* 75 MCG TAB PO SCH (05:28)
[2019-01-19] MEDS: oxyCODONE TAB* 5 MG TAB PO PRN (05:28)
[2019-01-19] MEDS: Acetaminophen TAB* 325 MG PO SCH (05:30)
[2019-01-19 07:33] VITALS: BP 109/62
[2019-01-19] MEDS ORDERED: Aspirin TAB* 325 MG PO SCH (09:00)
--- NOTE | 2019-01-19 09:11 | DS ---
Orthopedic Discharge Summary - Discharge Summary Date of Admission:01/13/19 Date of Discharge: 01/19/19 Date of Surgery: 01/13/19 Attending Orthopedic Provider: Dr Suresh Pre-operative Diagnosis: Right shoulder pain Operative Procedure: R shoulder revision surgery with conversion to reverse Disposition of Patient: home Condition of Patient: stable History: ELSY GOMEZ is a 63 year old M with increasingly severe right shoulder pain. Patient has failed conservative management and has elected to undergo a R shoulder revision surgery with conversion to reverse Hospital Course: ELSY was admitted to [facility] on 01/13/19. Patient underwent a [ R shoulder revision surgery with conversion to reverse] without complication followed by a brief recovery in PACU and transfer to the ICU due to hypotension. Our hospitalist service, physical therapy and occupational therapy also participated in this patients care. Due to acute bloodloss anemia he received 1 unit pRBC during his stay as well as oral iron supplementation. Exam was consistent throughout stay dressing was changed and incision was CDI, sensation intact to light touch throughout RUE, f/e at elbow wrist and digits intact, radial pulse 2+ and capillary refill less than two seconds distally. He was deemed to be medically and orthopedically stable for discharge home on 01/19/19. With acute bloodloss anemia as well as history of DVT considered he will go home on aspirin 325 mg daily for 30 days post op. Home Medications Medication Instructions Recorded Confirmed Type Cholecalciferol TAB* [Vitamin D 1,000 units PO QAM 08/27/12 01/13/19 History TAB*] Methadone TAB* [Dolophine TAB*] 4 - 5 tab PO SEE INSTRUCTIONS 08/27/12 01/13/19 History metFORMIN* [Glucophage 1000 MG TAB 1,000 mg PO BID 02/11/14 01/13/19 History *] Dexlansoprazole (NF) [Dexilant 60 mg PO QAM 10/08/18 01/13/19 History (NF)] Pancrelipase (NF) [Creon (NF)] 3 cap PO TID 12/09/18 01/13/19 History lamoTRIgine [Lamotrigine] 150 mg PO BID 12/09/18 01/13/19 History Cbd Oil 25 mg PO BID 01/01/19 01/13/19 History Levothyroxine TAB* [Synthroid 75 75 mcg PO QAM 01/01/19 01/13/19 History MCG TAB*] Cyanocobalamin TAB* [Vitamin B12 1,000 mcg PO 1400 01/06/19 01/13/19 History TAB*] Ferrous Sulfate TAB* 325 mg PO DAILY 01/06/19 01/13/19 History Lisinopril TAB* [Prinivil TAB 10 40 mg PO 1400 01/06/19 01/13/19 History MG*] Magnesium Oxide [Magnesium] 1 - 2 tab PO SEE INSTRUCTIONS 01/06/19 01/13/19 History amLODIPine TAB* [Norvasc 5 mg TAB*] 5 mg PO 1400 01/06/19 01/13/19 History Acetaminophen TAB* [Tylenol TAB*] 975 mg PO Q8HR tab 01/19/19 Rx Aspirin TAB* [Aspirin 325 MG TAB*] 325 mg PO DAILY #30 tab 01/19/19 Rx Bisacodyl SUPP* [Dulcolax Supp*] 10 mg NM DAILY PRN supp 01/19/19 Rx Docusate CAP* [Colace Cap*] 100 mg PO BID PRN #90 cap 01/19/19 Rx Ferrous Sulfate TAB* 325 mg PO BID #60 tab 01/19/19 Rx non weight bearing right upper extremity Sling at all times except for skin care/ bathing. No range of motion and no weight bearing operative extremity. May shower but do not submerge wound. pat wound dry and apply light sterile dressing to incision May extend elbow, work on range of motion of the wrist/ hand but no active motion of the right shoulder Continue with the hydrocodone as prescribed by pain management, follow up with them tomorrow as planned, they will need to adjust your narcotics if necessary Follow up with Dr. Suresh as scheduled in clinic in 10-14 days. Call for an appointment as well as with any questions or concerns. [phone] Go to the emergency room with chest pain or shortness of breath Call the orthopedic office with drainage, redness, increased pain, fever or chills Post op anemia: within 1 week follow up with PCP for repeat CBC and additional workup of this anemia, including colonoscopy if you have not had one recently. Aspirin 325 mg daily for 30 days post op RX for colace and aspirin to [facility]
[2019-01-19] MEDS: lamoTRIgine TAB(*) 100 MG PO SCH (09:23)
[2019-01-19] MEDS: Vitamin THERAPEUTIC TAB PO SCH (09:23)
[2019-01-19] MEDS: Docusate CAP* 100 MG PO SCH (09:23)
[2019-01-19] MEDS: Cholecalciferol TAB* 1000 UNITS PO SCH (09:24)
[2019-01-19] MEDS: Magnesium Oxide TAB* 400 MG PO SCH (09:24)
[2019-01-19] MEDS: Methadone TAB* 10 MG PO SCH (09:24)
[2019-01-19] MEDS: Pantoprazole TAB * 40 MG TAB PO SCH (09:24)
[2019-01-19] MEDS: Ferrous Sulfate TAB* 325 MG PO SCH (09:24)
[2019-01-19] MEDS: Insulin LISPRO* 1 UNITS UNIT SUBCUT SCH (09:25)
[2019-01-19] MEDS: PANCRELIPASE 12000 UNIT PO SCH (09:29)
[2019-01-19 10:52] LABS: ABS Eosinophils 0.2 10^3/ul (0-0.6); ABS Lymphocytes 0.6 10^3/ul (1.0-4.8); ABS Monocytes 0.3 10^3/ul (0-0.8); ABS Neutrophils 2.6 10^3/ul (1.5-7.7); Eosinophil % 4.2 %; Hematocrit 23 % (42-52); Hemoglobin 7.9 g/dL (14.0-18.0); Lymphocyte % 16.1 %; Mean Corpuscular HGB Conc 35 g/dL (31-36); Mean Corpuscular Hemoglobin 29 pg (27-31); Mean Corpuscular Volume 85 fL (80-94); Mean Platelet Volume 8.6 fL (7.4-10.4); Platelet Count 137 10^3/uL (150-450); Red Blood Count 2.71 10^6 /uL (4.18-5.48); Red Cell Distribution Width 15 % (10-15); White Blood Count 3.7 10^3/uL (3.5-10.8)
== END 2019-01-19 10:47 | disposition home or self-care (01) | DRG 483 ==
LOC: AA 06:28 → ICU 18:46 → SSU 01-14 20:38
PROVIDERS: ADMIT Orthopaedic Surgery; ATTEND Orthopaedic Surgery
PROC: 0RPJ0JZ Removal of Synthetic Substitute from Right Shoulder Joint, Open Approach (ICD-10-PCS; 2019-01-13)
PROC: 0RRJ00Z Replacement of Right Shoulder Joint with Reverse Ball and Socket Synthetic Substitute, Open Approach (ICD-10-PCS; principal; 2019-01-13 08:30)
PROC: 30233N1 Transfusion of Nonautologous Red Blood Cells into Peripheral Vein, Percutaneous Approach (ICD-10-PCS; 2019-01-14)
DX: T84.84XA Pain due to internal orthopedic prosthetic devices, implants and grafts, initial encounter (principal); D62 Acute posthemorrhagic anemia; K86.1 Other chronic pancreatitis; N17.9 Acute kidney failure, unspecified; E83.42 Hypomagnesemia; I95.81 Postprocedural hypotension; G40.909 Epilepsy, unspecified, not intractable, without status epilepticus; M54.9 Dorsalgia, unspecified; E11.9 Type 2 diabetes mellitus without complications; K21.9 Gastro-esophageal reflux disease without esophagitis; M75.121 Complete rotator cuff tear or rupture of right shoulder, not specified as traumatic; M47.817 Spondylosis without myelopathy or radiculopathy, lumbosacral region; E78.5 Hyperlipidemia, unspecified; H91.90 Unspecified hearing loss, unspecified ear; I10 Essential (primary) hypertension; I25.2 Old myocardial infarction; Z86.718 Personal history of other venous thrombosis and embolism; Z79.84 Long term (current) use of oral hypoglycemic drugs; Z79.899 Other long term (current) drug therapy; Z82.49 Family history of ischemic heart disease and other diseases of the circulatory system; Z80.9 Family history of malignant neoplasm, unspecified
CPT/HCPCS: 36415; 80048; 82272; 82728; 83540; 83550; 85014; 85018; 85025; 85045; 85049; 86850; 86900; 86901; 86922; 87070; 87073; 87205; 87641; 88300; 90686; A9270-GY; C1713; C1776; G8978-GP-CI; G8979-GP-CI; G8980-GP-CI; G8987-GO-CI; G8988-GO-CI; J0690; J1100; J1650; J1885; J2250; J2270; J2405; J2704; J2710; J2795; J3010; P9040

== ENCOUNTER 2019-01-22 18:28 | Emergency (ER) | payer MEDICARE, BC ==
[2019-01-22] MEDS ORDERED: Morphine 4 MG/ML VIAL (1 ml) 4 MG/ML VIAL IM ONE (19:48)
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
[2019-01-22 20:31] VITALS: BP 112/71
== END 2019-01-22 20:33 | disposition home or self-care (01) ==
LOC: ED 18:28
DX: M25.511 Pain in right shoulder (principal); W19.XXXA Unspecified fall, initial encounter; Y92.9 Unspecified place or not applicable; E11.9 Type 2 diabetes mellitus without complications; E07.9 Disorder of thyroid, unspecified; E78.00 Pure hypercholesterolemia, unspecified; I10 Essential (primary) hypertension; I73.9 Peripheral vascular disease, unspecified; Z96.611 Presence of right artificial shoulder joint; Z86.718 Personal history of other venous thrombosis and embolism; Z79.82 Long term (current) use of aspirin; Z79.84 Long term (current) use of oral hypoglycemic drugs; Z79.890 Hormone replacement therapy; Z79.899 Other long term (current) drug therapy
CPT/HCPCS: 96372; 99281; J2270

== ENCOUNTER 2020-03-07 09:05 | Observation (INO) ==
[~2020-03-07 09:05] MED LIST changes: +Buffered Lidocaine 1% SYRIN 1 ml INTRADERM ONE; -Buffered Lidocaine 1% SYRIN* 1 ML/SYRINGE INTRADERM ONE; +Famotidine IV 10 MG/ML 2 ml VIAL (20 mg) IV ONE; -Famotidine IV* 10 MG/ML 2 ML (20 mg) IV ONE; -Lactated Ringers 1000 ML Bag* 1,000 ML IV SCH; +Lactated Ringers 1000 ml BAG 1,000 ML IV SCH
[2020-03-07] MEDS ORDERED: ceFAZolin 2 GM PREMIX 2 GM/50 ML BAG ONE (09:21)
[2020-03-07] MEDS ORDERED: Famotidine IV 10 MG/ML 2 ml VIAL (20 mg) ONE (09:21)
[2020-03-07] MEDS ORDERED: Rocuronium 50 mg VIAL 10 mg/ml 5 ml VIAL (50 mg) ONE (09:30)
[2020-03-07] MEDS ORDERED: Propofol 10 MG/ML 20 ML BTL ONE (09:30)
[2020-03-07] MEDS ORDERED: Lidocaine 2% PF 5 ML VIAL ONE (09:30)
[2020-03-07] MEDS ORDERED: fentaNYL 250 mcg/5 ml 50 MCG/ML 5 ml VIAL (250 MCG) ONE (09:31)
[2020-03-07] MEDS ORDERED: Midazolam 2 mg/2 ml VIAL 1 mg/ml 2 ml VIAL (2 mg) ONE (09:31)
[2020-03-07] MEDS ORDERED: Acetaminophen IV 1 GM/100ML 100 ML ONE (10:11)
[2020-03-07] MEDS ORDERED: ROPIVACAINE 5 MG/ML 30 ML BTL (0.5%) ONE (10:39)
[2020-03-07] MEDS ORDERED: Ketamine HCL 50 mg/ml 10 ml VIAL (500 MG) ONE (12:19)
[2020-03-07] MEDS ORDERED: HYDROmorphone 1 MG/1 ML SYRINGE ONE ×3 (12:38→15:15)
[2020-03-07] MEDS ORDERED: Dexamethasone IV 4 MG/ML VIAL 1 ml VIAL ONE ×2 (12:39→12:41)
[2020-03-07] MEDS ORDERED: Glycopyrrolate IV 0.2 MG/ML 1 ML VIAL ONE (13:19)
[2020-03-07] MEDS ORDERED: Atropine 1 MG/ML INJ 1 ML VIAL ONE (13:24)
[2020-03-07] MEDS ORDERED: Ondansetron 4 mg VIAL 2 MG/ML 2 ml VIAL IV PRN (15:03)
[2020-03-07] MEDS ORDERED: Naloxone 0.4 mg VIAL 0.4 mg/ml 1 ml VIAL IV PRN (15:03)
[2020-03-07] MEDS ORDERED: diPHENhydraMINE 25 mg TAB PO PRN (15:09)
[2020-03-07] MEDS ORDERED: Magnesium Hydroxide LIQ 30 ML UDC PO PRN (15:09)
[2020-03-07] MEDS ORDERED: diPHENhydraMINE IV 50 MG/ML 1 ml VIAL (BENADRYL) IV PRN (15:09)
[2020-03-07] MEDS ORDERED: Ondansetron ODT 4 mg TAB 4 MG TAB PO PRN (15:09)
[2020-03-07] MEDS ORDERED: Morphine 2 MG/ML SYRINGE IV PRN (15:09)
[2020-03-07] MEDS ORDERED: Lactulose 30 ml UDC PO PRN (15:09)
[2020-03-07] MEDS ORDERED: fentaNYL 100 mcg/2 ml 50 MCG/ML VIAL ONE ×3 (15:15→16:22)
[2020-03-07] MEDS: fentaNYL 100 mcg/2 ml 50 MCG/ML VIAL IV PRN ×5 (15:16→16:23)
[2020-03-07] MEDS: HYDROmorphone 1 MG/1 ML SYRINGE IV PRN ×2 (15:17→15:28)
[2020-03-07] MEDS ORDERED: Naloxone Nasal Spray 4 MG/0.1 ML NASAL.SPR INTRANASAL SCH (16:00)
[2020-03-07] MEDS ORDERED: Dextrose 50% Syringe 50 ml 25 GM/50 ML SYRINGE IV PUSH PRN (16:37)
[2020-03-07] MEDS: Lactated Ringers 1000 ml BAG 1,000 ML IV SCH (16:43)
[2020-03-07] MEDS ORDERED: Pancrelipase 12,000 units (NF) PO SCH (17:00)
[2020-03-07] MEDS ORDERED: Naloxone 0.4 mg VIAL 0.4 mg/ml 1 ml VIAL IV PUSH PRN (19:54)
[2020-03-07] MEDS: ceFAZolin 1 GM ADVAN 1 GM in NS 0.9% 50 ML 50 ML IVPB SCH (21:00)
[2020-03-07] MEDS: Magnesium Hydroxide LIQ 30 ML UDC PO SCH (21:02)
[2020-03-08] MEDS ORDERED: Polyethylene Glycol 3350 17 GM PACKET PO PRN (00:01)
[2020-03-08] MEDS: Lactated Ringers 1000 ml BAG 1,000 ML IV SCH (03:26)
[2020-03-08] MEDS: ceFAZolin 1 GM ADVAN 1 GM in NS 0.9% 50 ML 50 ML IVPB SCH ×2 (05:05→12:09)
[2020-03-08 07:06] LABS: Hematocrit 25 % (42-52); Hemoglobin 8.5 g/dL (14.0-18.0); Mean Platelet Volume 9.1 fL (7.4-10.4); Platelet Count 102 10^3/uL (150-450)
[2020-03-08 07:20] LABS: BUN/Creatinine Ratio 19.7 (8-20); Calcium 7.9 mg/dL (8.6-10.3); EGFR African American 63.7 (>60); EGFR Non-African American 52.7 (>60); Magnesium 2.2 mg/dL (1.9-2.7)
[2020-03-08 07:22] LABS: Potassium 5.3 mmol/L (3.5-5.0)
[2020-03-08] MEDS: Pancrelipase 5,000 units CAP PO SCH ×4 (07:36→17:36)
[2020-03-08] MEDS ORDERED: Vitamin THERAPEUTIC TAB PO SCH (09:00)
[2020-03-08] MEDS ORDERED: DULoxetine DR 60 mg CAP PO SCH (09:00)
[2020-03-08] MEDS: Magnesium Hydroxide LIQ 30 ML UDC PO SCH (09:14)
[2020-03-08 15:36] VITALS: BP 96/59
[2020-03-08 16:30] LABS: BUN/Creatinine Ratio 19.3 (8-20); Calcium 7.9 mg/dL (8.6-10.3); EGFR African American 57.4 (>60); EGFR Non-African American 47.4 (>60); Potassium 4.7 mmol/L (3.5-5.0)
== END 2020-03-08 18:50 | disposition home or self-care (01) ==
LOC: SSU 09:05 → OR 09:05
PROVIDERS: ADMIT Orthopaedic Surgery Adult Reconstructive Orthopaedic Surgery; ATTEND Orthopaedic Surgery Adult Reconstructive Orthopaedic Surgery

== ENCOUNTER 2021-11-07 17:12 | Observation (INO) ==
[2021-11-07] MEDS ORDERED: NS 0.9% 1000 ml BAG 1,000 ML IV ONE (17:48)
[2021-11-07 18:32] LABS: ABS Eosinophils 0.1 10^3/ul (0-0.6); ABS Lymphocytes 0.7 10^3/ul (1.0-4.8); ABS Monocytes 0.5 10^3/ul (0-0.8); ABS Neutrophils 5.3 10^3/ul (1.5-7.7); Eosinophil % 0.9 %; Hematocrit 42 % (42-52); Hemoglobin 13.8 g/dL (14.0-18.0); Lymphocyte % 11.2 %; Mean Corpuscular HGB Conc 33 g/dL (31-36); Mean Corpuscular Hemoglobin 30 pg (27-31); Mean Corpuscular Volume 90 fL (80-94); Mean Platelet Volume 8.5 fL (7.4-10.4); Platelet Count 152 10^3/uL (150-450); Red Blood Count 4.64 10^6 /uL (4.18-5.48); Red Cell Distribution Width 15 % (10-15); White Blood Count 6.7 10^3/uL (3.5-10.8)
[2021-11-07] MEDS ORDERED: Morphine 4 MG/ML VIAL (1 ml) IV ONE (18:39)
[2021-11-07 18:52] LABS: Activated Partial Thrombo Time 32.1 seconds (26.0-38.0); INR 1.04 (0.86-1.15)
[2021-11-07 19:33] LABS: Albumin 4.2 g/dL (3.2-5.2); Albumin/Globulin Ratio 1.8 (1-3); Calcium 9.2 mg/dL (8.6-10.3); Globulin 2.3 g/dL (2-4); HDL Cholesterol 68.2 mg/dL; Potassium 4.2 mmol/L (3.5-5.0); Total Bilirubin 0.5 mg/dL (0.2-1.0); Total Protein 6.5 g/dL (6.4-8.9); eGFR CKD-EPI 57.6 (>60)
[2021-11-07 19:33] LABS: High Sensitivity Troponin 1 Hr 16 pg/mL (<20)
[2021-11-07] MEDS ORDERED: Iohexol 350 (CONTRAST) 500 ML MDV IV ONE (19:46)
[2021-11-07] MEDS ORDERED: Dextrose 50% Syringe 50 ml 25 GM/50 ML SYRINGE IV PUSH PRN (23:08)
[2021-11-07] MEDS: Enoxaparin 40 MG/0.4 ML SYR SUBCUT SCH (23:28)
[2021-11-08 01:40] LABS: TSH Ultra Thyroid Stim Horm 1.15 mcIU/mL (0.34-5.60)
[2021-11-08 06:10] LABS: ABS Eosinophils 0.1 10^3/ul (0-0.6); ABS Lymphocytes 0.9 10^3/ul (1.0-4.8); ABS Monocytes 0.4 10^3/ul (0-0.8); ABS Neutrophils 2.3 10^3/ul (1.5-7.7); Eosinophil % 3.3 %; Hematocrit 40 % (42-52); Hemoglobin 13.3 g/dL (14.0-18.0); Lymphocyte % 24.5 %; Mean Corpuscular HGB Conc 33 g/dL (31-36); Mean Corpuscular Hemoglobin 30 pg (27-31); Mean Corpuscular Volume 90 fL (80-94); Mean Platelet Volume 8.7 fL (7.4-10.4); Nucleated Red Blood Cells % 0.1; Platelet Count 126 10^3/uL (150-450); Red Blood Count 4.41 10^6 /uL (4.18-5.48); Red Cell Distribution Width 15 % (10-15); White Blood Count 3.8 10^3/uL (3.5-10.8)
[2021-11-08 06:28] LABS: Calcium 9.1 mg/dL (8.6-10.3); Magnesium 2.2 mg/dL (1.9-2.7); eGFR CKD-EPI 64.3 (>60)
[2021-11-08] MEDS: CYANOCOBALAMIN 50 MCG PO SCH (08:20)
[2021-11-08] MEDS ORDERED: Perflutren Lipid Microsphere 3 ML VIAL ONE (09:43)
[2021-11-08] MEDS: DULoxetine DR 60 mg CAP PO SCH (10:44)
[2021-11-08] MEDS: PANCRELIPASE 12000 UNIT PO SCH ×3 (10:46→20:40)
[2021-11-08] MEDS ORDERED: Gadoteridol (CONTRAST) 279.3 MG/ML 10 ML IV ONE (14:21)
[2021-11-08] MEDS: Morphine 2 MG/ML SYRINGE IV PRN (16:35)
[2021-11-08] MEDS: Enoxaparin 40 MG/0.4 ML SYR SUBCUT SCH (20:45)
[2021-11-09] MEDS: Morphine 2 MG/ML SYRINGE IV PRN ×2 (05:37→11:51)
[2021-11-09] MEDS: PANCRELIPASE 12000 UNIT PO SCH ×2 (07:21→13:57)
[2021-11-09] MEDS: CYANOCOBALAMIN 50 MCG PO SCH (07:21)
[2021-11-09] MEDS: DULoxetine DR 60 mg CAP PO SCH (07:48)
[2021-11-09 11:38] VITALS: BP 126/84
== END 2021-11-09 15:55 | disposition home or self-care (01) ==
LOC: EDHOLD 17:12 → ED 17:12 → MEDTELE 11-08 02:54
PROVIDERS: ADMIT Internal Medicine; ATTEND Internal Medicine

== ENCOUNTER 2022-11-14 18:09 | Observation (INO) ==
[2022-11-14] MEDS ORDERED: Lactated Ringers 1000 ml BAG 1,000 ML IV ONE (19:07)
[2022-11-14] MEDS ORDERED: Ondansetron 4 mg VIAL 2 MG/ML 2 ml VIAL IV ONE (19:07)
[2022-11-14] MEDS ORDERED: Morphine 4 MG/ML VIAL (1 ml) IV ONE ×2 (19:07→19:09)
[2022-11-14 19:31] LABS: ABS Lymphocytes 0.8 10^3/uL (1.0-4.8); ABS Monocytes 0.6 10^3/uL (0.0-1.1); ABS Neutrophils 4.9 10^3/uL (1.5-7.6); Eosinophil % 0.5 %; Hematocrit 29.3 % (38-53); Hemoglobin 10.1 g/dL (13.2-16.3); Lymphocyte % 11.8 %; Mean Corpuscular Hemoglobin 32.7 pg (27-33); Mean Corpuscular Hgb Conc 34.3 g/dL (31-36); Mean Corpuscular Volume 95.5 fL (80-97); Mean Platelet Volume 9.1 fL (7.5-11.2); Platelet Count 119 10^3/uL (150-450); Red Blood Count 3.07 10^6/uL (4.06-5.63); Red Cell Distribution Width 12.9 % (12-17); White Blood Count 6.3 10^3/uL (3.6-10.2)
[2022-11-14 19:37] LABS: INR 1.33 (0.88-1.18)
[2022-11-14 19:47] LABS: ALT 13 U/L (7-52); AST 22 U/L (13-39); Albumin 3.2 g/dL (3.2-5.2); Albumin/Globulin Ratio 1.3 (1-3); Alkaline Phosphatase 45 U/L (35-149); Anion Gap 6 mmol/L (2-16); Blood Urea Nitrogen 11 mg/dL (6-24); C Reactive Protein 164.73 mg/L (<8.01); CO2 Carbon Dioxide 28 mmol/L (22-32); Chloride 104 mmol/L (101-111); Creatine Kinase 177 U/L (10-223); Creatinine, Serum 1.05 mg/dL (0.67-1.17); Globulin 2.4 g/dL (2-4); Glucose 149 mg/dL (70-100); Lipase < 10 U/L (11.0-82.0); Sodium 138 mmol/L (135-145); Total Protein 5.6 g/dL (6.4-8.9); eGFR CKD-EPI 78.8 (>60)
[2022-11-14] MEDS ORDERED: HYDROmorphone 1 MG/1 ML SYRINGE IV ONE (20:36)
[2022-11-14] MEDS ORDERED: Iodixanol (CONTRAST) 320 MG/ML 100 ML SDV IV ONE (20:39)
[2022-11-14] MEDS ORDERED: PEG 3000 GI LAVAGE 1 GALLON PO ONE (21:21)
[2022-11-14 22:21] LABS: Urine Appearance Clear; Urine Bilirubin Negative (Negative); Urine Blood Negative (Negative); Urine Color Yellow; Urine Glucose Negative (Negative); Urine Ketones Negative (Negative); Urine Nitrite Negative (Negative); Urine Protein 2+(100 mg/dL) (Negative); Urine Specific Gravity 1.008 (1.002-1.030); Urine Urobilinogen Negative (Negative)
[2022-11-14 22:28] LABS: Urine Bacteria Absent (Absent); Urine Red Blood Cell Trace(0-2/hpf) (Absent); Urine White Blood Cell Trace(0-5/hpf) (Absent)
[2022-11-14] MEDS ORDERED: HYDROmorphone 1 MG/1 ML SYRINGE IV SLOW PU ONE (22:30)
[2022-11-14] MEDS ORDERED: Piperacillin/Tazobac 3.375 BAG 3.375 GM/100 ML BAG IV ONE (22:31)
[2022-11-14] MEDS ORDERED: Zosyn per Pharmacy NOTE FOLLOW UP SCH (23:00)
[2022-11-14] MEDS ORDERED: HYDROmorphone 1 MG/1 ML SYRINGE IV SLOW PU PRN (23:44)
[2022-11-15] MEDS: Enoxaparin 40 MG/0.4 ML SYR SUBCUT SCH ×2 (02:22→22:01)
[2022-11-15] MEDS: Ondansetron 4 mg VIAL 2 MG/ML 2 ml VIAL IV PRN ×2 (02:23→20:29)
[2022-11-15] MEDS: NS 0.9% 1000 ml BAG 1,000 ML IV SCH ×2 (02:24→19:40)
[2022-11-15] MEDS ORDERED: HYDROmorphone 1 MG/1 ML SYRINGE IV PRN ×2 (02:39→10:55)
[2022-11-15] MEDS ORDERED: HYDROmorphone 1 MG/1 ML SYRINGE IV SLOW PU PRN (02:42)
[2022-11-15] MEDS ORDERED: HYDROmorphone 0.5 MG/0.5 ML SYRINGE IV PRN (05:04)
[2022-11-15 05:59] LABS: ABS Lymphocytes 0.6 10^3/uL (1.0-4.8); ABS Monocytes 0.4 10^3/uL (0.0-1.1); ABS Neutrophils 3.9 10^3/uL (1.5-7.6); ABS Nucleated RBC 0.01 10^3/ul; Eosinophil % 0.6 %; Hematocrit 25.8 % (38-53); Hemoglobin 8.9 g/dL (13.2-16.3); Lymphocyte % 12.5 %; Mean Corpuscular Hemoglobin 32.7 pg (27-33); Mean Corpuscular Hgb Conc 34.6 g/dL (31-36); Mean Corpuscular Volume 94.4 fL (80-97); Mean Platelet Volume 9.3 fL (7.5-11.2); Nucleated Red Blood Cells % 0.2 /100 WBC (0.0-0.4); Platelet Count 106 10^3/uL (150-450); Red Blood Count 2.73 10^6/uL (4.06-5.63); Red Cell Distribution Width 13.1 % (12-17)
[2022-11-15 06:29] LABS: Albumin 2.8 g/dL (3.2-5.2); Albumin/Globulin Ratio 1.3 (1-3); Calcium 7.5 mg/dL (8.6-10.3); Creatinine, Serum 0.99 mg/dL (0.67-1.17); Globulin 2.1 g/dL (2-4); Total Bilirubin 0.3 mg/dL (0.2-1.0); Total Protein 4.9 g/dL (6.4-8.9); eGFR CKD-EPI 84.5 (>60)
[2022-11-15] MEDS ORDERED: HYDROmorphone 1 MG/1 ML SYRINGE IV SLOW PU ONE (08:04)
[2022-11-15] MEDS: Piperacillin/Tazobac 3.375 BAG 3.375 GM/100 ML BAG IV SCH (08:08)
[2022-11-15] MEDS: Pantoprazole VIAL 40 MG VIAL IV SCH (08:57)
[2022-11-15] MEDS: DULoxetine DR 60 mg CAP PO SCH (08:57)
[2022-11-15] MEDS ORDERED: Buffered Lidocaine 1% SYRIN 1 ml INTRADERM ONE (10:54)
[2022-11-15] MEDS ORDERED: Prochlorperazine 5 mg/ml 2 ml VIAL (10 mg) IV PRN (10:55)
[2022-11-15] MEDS ORDERED: Naloxone 0.4 mg VIAL 0.4 mg/ml 1 ml VIAL IV PRN (10:55)
[2022-11-15] MEDS ORDERED: Lactated Ringers 1000 ml BAG 1,000 ML IV SCH (11:00)
[2022-11-15] MEDS: HYDROmorphone 1 MG/1 ML SYRINGE IV SLOW PU PRN ×2 (11:26→20:10)
[2022-11-15] MEDS ORDERED: Bupivacaine 0.25% w/EPI 10 ML SDV ONE ×2 (12:00→14:05)
[2022-11-15] MEDS ORDERED: Lidocaine 2% PF 5 ML VIAL ONE (12:52)
[2022-11-15] MEDS ORDERED: Rocuronium 50 mg VIAL 10 mg/ml 5 ml VIAL (50 mg) ONE ×2 (12:52→14:41)
[2022-11-15] MEDS ORDERED: Midazolam 2 mg/2 ml VIAL 1 mg/ml 2 ml VIAL (2 mg) ONE (12:52)
[2022-11-15] MEDS ORDERED: fentaNYL 250 mcg/5 ml 50 MCG/ML 5 ml VIAL (250 MCG) ONE (12:52)
[2022-11-15] MEDS ORDERED: Propofol 10 MG/ML 20 ML BTL ONE (12:52)
[2022-11-15] MEDS ORDERED: Dexamethasone IV 4 MG/ML VIAL 1 ml VIAL ONE (12:52)
[2022-11-15] MEDS ORDERED: Ondansetron 4 mg VIAL 2 MG/ML 2 ml VIAL ONE (12:52)
[2022-11-15] MEDS ORDERED: HYDROmorphone 1 MG/1 ML SYRINGE ONE (16:25)
[2022-11-15] MEDS ORDERED: ZOSYN 3.375 GM x ONE DOSE over 30 miuntes IV (23:00)
[2022-11-16] MEDS: Piperacillin/Tazobac 3.375 BAG 3.375 GM/100 ML BAG IV SCH ×2 (00:07→00:08)
[2022-11-16] MEDS: HYDROmorphone 1 MG/1 ML SYRINGE IV SLOW PU PRN ×3 (02:25→10:16)
[2022-11-16] MEDS: Ondansetron 4 mg VIAL 2 MG/ML 2 ml VIAL IV PRN (02:26)
[2022-11-16] MEDS: ZOSYN 3.375 GM Q8H per EXTENDED INFUSION IV SCH ×2 (02:37→10:40)
[2022-11-16 07:06] LABS: ABS Eosinophils 0.1 10^3/uL (0.0-0.5); ABS Lymphocytes 0.5 10^3/uL (1.0-4.8); ABS Monocytes 0.5 10^3/uL (0.0-1.1); ABS Neutrophils 3.8 10^3/uL (1.5-7.6); Eosinophil % 2.4 %; Hemoglobin 8.3 g/dL (13.2-16.3); Lymphocyte % 10.7 %; Mean Corpuscular Hemoglobin 32.7 pg (27-33); Mean Corpuscular Hgb Conc 34.5 g/dL (31-36); Mean Corpuscular Volume 94.9 fL (80-97); Mean Platelet Volume 8.9 fL (7.5-11.2); Nucleated Red Blood Cells % 0.1 /100 WBC (0.0-0.4); Platelet Count 128 10^3/uL (150-450); Red Blood Count 2.53 10^6/uL (4.06-5.63)
[2022-11-16 07:21] LABS: Calcium 7.5 mg/dL (8.6-10.3); Creatinine, Serum 1.13 mg/dL (0.67-1.17); Potassium 4.2 mmol/L (3.5-5.0); eGFR CKD-EPI 72.1 (>60)
[2022-11-16] MEDS ORDERED: Pancrelipase 5,000 units CAP PO SCH (08:45)
[2022-11-16] MEDS: DULoxetine DR 60 mg CAP PO SCH (08:54)
[2022-11-16] MEDS: Pantoprazole VIAL 40 MG VIAL IV SCH (08:55)
[2022-11-16 10:10] VITALS: BP 134/79
== END 2022-11-16 11:02 | disposition home or self-care (01) ==
LOC: ED 18:09 → EDHOLD 18:09 → SUATTDRO 23:41 → SSU 11-15 17:05
PROVIDERS: ADMIT Hospitalist; ATTEND Student in an Organized Health Care Education/Training Program

== ENCOUNTER 2022-12-28 12:20 | Inpatient (IN) ==
[2022-12-28] MEDS ORDERED: NS 0.9% 1000 ml BAG 1,000 ML IV ONE (12:51)
[2022-12-28] MEDS ORDERED: Ondansetron 4 mg VIAL 2 MG/ML 2 ml VIAL IV ONE ×2 (12:51→16:49)
[2022-12-28] MEDS ORDERED: Morphine 4 MG/ML VIAL (1 ml) IV ONE ×2 (12:53→16:49)
[2022-12-28 14:11] LABS: ABS Lymphocytes 0.6 10^3/uL (1.0-4.8); ABS Monocytes 0.4 10^3/uL (0.0-1.1); ABS Neutrophils 5.1 10^3/uL (1.5-7.6); Eosinophil % 0.3 %; Hemoglobin 12.7 g/dL (13.2-16.3); Lymphocyte % 10.5 %; Mean Corpuscular Hgb Conc 34.3 g/dL (31-36); Mean Corpuscular Volume 93.1 fL (80-97); Mean Platelet Volume 9.3 fL (7.5-11.2); Nucleated Red Blood Cells % 0.1 /100 WBC (0.0-0.4); Platelet Count 204 10^3/uL (150-450); Red Blood Count 3.98 10^6/uL (4.06-5.63); Red Cell Distribution Width 13.2 % (12-17); White Blood Count 6.1 10^3/uL (3.6-10.2)
[2022-12-28 14:33] LABS: ALT 22 U/L (7-52); Albumin 4.1 g/dL (3.2-5.2); Albumin/Globulin Ratio 1.4 (1-3); Alkaline Phosphatase 82 U/L (35-149); Blood Urea Nitrogen 18 mg/dL (6-24); CO2 Carbon Dioxide 34 mmol/L (22-32); Calcium 8.9 mg/dL (8.6-10.3); Chloride 94 mmol/L (101-111); Creatinine, Serum 1.48 mg/dL (0.67-1.17); Glucose 151 mg/dL (70-100); Lipase 32 U/L (11.0-82.0); Sodium 141 mmol/L (135-145); Total Protein 7.1 g/dL (6.4-8.9); eGFR CKD-EPI 52.2 (>60)
[2022-12-28 14:45] LABS: Anion Gap 13 mmol/L (2-16)
[2022-12-28] MEDS ORDERED: Iodixanol (CONTRAST) 320 MG/ML 100 ML SDV IV ONE (14:50)
[2022-12-28] MEDS ORDERED: Lactated Ringers 1000 ml BAG 1,000 ML IV ONE (16:49)
[2022-12-28] MEDS ORDERED: Famotidine IV 10 MG/ML 2 ml VIAL (20 mg) IV SLOW PU ONE (17:35)
[2022-12-28 18:48] LABS: Magnesium 2.6 mg/dL (1.9-2.7); Potassium Redraw 3.2 mmol/L (3.5-5.0)
[2022-12-28] MEDS ORDERED: Pantoprazole 80 mg in NS BAG 80 MG/250 ML BAG IV SCH (21:00)
[2022-12-28] MEDS ORDERED: KCL 20 MEQ/100 ML IVPREMIX 20 MEQ/100 ML BAG IV ONE (21:06)
[2022-12-28] MEDS ORDERED: Pantoprazole VIAL 40 MG VIAL IV SCH (22:00)
[2022-12-28] MEDS: Ondansetron 4 mg VIAL 2 MG/ML 2 ml VIAL IV PRN (22:15)
[2022-12-28] MEDS: NS 0.9% 1000 ml BAG 1,000 ML IV SCH (22:15)
[2022-12-28] MEDS ORDERED: LORazepam 2 mg VIAL 1 ml IV PUSH ONE (22:25)
[2022-12-28] MEDS ORDERED: Lorazepam PYXIS KEY PRN (22:25)
[2022-12-29 06:23] LABS: Urine Appearance Clear; Urine Bilirubin Negative (Negative); Urine Blood Negative (Negative); Urine Color Yellow; Urine Glucose Negative (Negative); Urine Ketones Negative (Negative); Urine Nitrite Negative (Negative); Urine Protein 3+(>=500 mg/dL) (Negative); Urine Specific Gravity 1.044 (1.002-1.030); Urine Urobilinogen Negative (Negative)
[2022-12-29 06:34] LABS: Urine Bacteria Absent (Absent); Urine Red Blood Cell Trace(0-2/hpf) (Absent); Urine White Blood Cell Absent (Absent)
[2022-12-29] MEDS: HYDROmorphone 1 MG/1 ML SYRINGE IV PRN ×3 (07:40→18:42)
[2022-12-29] MEDS ORDERED: Lorazepam PYXIS KEY PRN ×3 (09:36→19:49)
[2022-12-29] MEDS ORDERED: LORazepam 2 mg VIAL 1 ml IV PUSH ONE ×3 (09:36→19:49)
[2022-12-29] MEDS: Ondansetron 4 mg VIAL 2 MG/ML 2 ml VIAL IV PRN ×2 (09:38→13:18)
[2022-12-29] MEDS ORDERED: Methadone ORALSYR CONC LIQ 10 MG/ML PO SCH (11:00)
[2022-12-29] MEDS: Enoxaparin 40 MG/0.4 ML SYR SUBCUT SCH ×2 (11:50→20:27)
[2022-12-29] MEDS ORDERED: DULoxetine DR 60 mg CAP PO SCH (12:00)
[2022-12-29] MEDS ORDERED: Pantoprazole VIAL 40 MG VIAL IV SCH (13:00)
[2022-12-29] MEDS: NS 0.9% 1000 ml BAG 1,000 ML IV SCH ×2 (13:22→18:39)
[2022-12-29] MEDS ORDERED: NF:Pancrelipase 12,000 units (NF) PO SCH (14:00)
[2022-12-29] MEDS ORDERED: Dextrose 50% Syringe 50 ml 25 GM/50 ML SYRINGE IV PUSH PRN (14:39)
[2022-12-29] MEDS ORDERED: Dextrose 50% Syringe 50 ml 25 GM/50 ML SYRINGE ONE (14:46)
[2022-12-29] MEDS ORDERED: Prochlorperazine 5 mg/ml 2 ml VIAL (10 mg) IV PRN (15:59)
[2022-12-29] MEDS ORDERED: Naloxone 0.4 mg VIAL 0.4 mg/ml 1 ml VIAL IV PRN (15:59)
[2022-12-29] MEDS ORDERED: fentaNYL 100 mcg/2 ml 50 MCG/ML VIAL IV PRN (15:59)
[2022-12-29] MEDS ORDERED: Propofol 10 MG/ML 20 ML BTL ONE (16:10)
[2022-12-29] MEDS ORDERED: Succinylcholine 200 mg VIAL 20 mg/ml 10 ml VIAL (200 mg) ONE (16:10)
[2022-12-29] MEDS ORDERED: hydrALAZINE 20 mg/ml 1 ML Vial IV IV SLOW PU PRN (16:30)
[2022-12-29 17:01] LABS: Calcium 8.7 mg/dL (8.6-10.3); Creatinine, Serum 1.46 mg/dL (0.67-1.17); Magnesium 2.6 mg/dL (1.9-2.7); Potassium 3.3 mmol/L (3.5-5.0)
[2022-12-29] MEDS ORDERED: Pantoprazole VIAL 40 MG VIAL IV ONE (17:35)
[2022-12-29] MEDS ORDERED: levETIRAcetam 1000MG IVPREMIX 1,000 MG/100 ML BAG IVPB ONE (17:54)
[2022-12-29] MEDS ORDERED: levETIRAcetam IV 2,000 MG in NS 0.9% 100 ml BAG 100 ML IVPB ONE (18:15)
[2022-12-29] MEDS: Pantoprazole 80 mg in NS BAG 80 MG/250 ML BAG IV SCH (18:40)
[2022-12-29] MEDS: KCL 20 MEQ/100 ML IVPREMIX 20 MEQ/100 ML BAG IV SCH ×2 (19:40→22:13)
[2022-12-29] MEDS ORDERED: LAMOTRIGINE 25 MG SCH (21:00)
[2022-12-29] MEDS: Methadone ORALSYR CONC LIQ 10 MG/ML NG TUBE SCH (22:45)
[2022-12-30] MEDS: KCL 20 MEQ/100 ML IVPREMIX 20 MEQ/100 ML BAG IV SCH ×2 (00:21→02:33)
[2022-12-30] MEDS: Pantoprazole 80 mg in NS BAG 80 MG/250 ML BAG IV SCH ×2 (04:43→15:28)
[2022-12-30] MEDS: levETIRAcetam 1000MG IVPREMIX 1,000 MG/100 ML BAG IVPB SCH ×2 (05:46→17:22)
[2022-12-30 05:57] LABS: ABS Eosinophils 0.3 10^3/uL (0.0-0.5); ABS Lymphocytes 0.7 10^3/uL (1.0-4.8); ABS Monocytes 0.4 10^3/uL (0.0-1.1); ABS Neutrophils 3.2 10^3/uL (1.5-7.6); Eosinophil % 5.5 %; Hematocrit 30.1 % (38-53); Hemoglobin 10.3 g/dL (13.2-16.3); Lymphocyte % 15.5 %; Mean Corpuscular Hemoglobin 31.7 pg (27-33); Mean Corpuscular Hgb Conc 34.1 g/dL (31-36); Mean Corpuscular Volume 92.9 fL (80-97); Mean Platelet Volume 9.4 fL (7.5-11.2); Platelet Count 137 10^3/uL (150-450); Red Blood Count 3.24 10^6/uL (4.06-5.63); Red Cell Distribution Width 13.2 % (12-17); White Blood Count 4.6 10^3/uL (3.6-10.2)
[2022-12-30 06:07] LABS: Calcium 7.7 mg/dL (8.6-10.3); Creatinine, Serum 1.33 mg/dL (0.67-1.17); Potassium 3.9 mmol/L (3.5-5.0); eGFR CKD-EPI 59.3 (>60)
[2022-12-30] MEDS: Levothyroxine 100 MCG/5 ML VIAL IV SCH (06:17)
[2022-12-30] MEDS: HYDROmorphone 1 MG/1 ML SYRINGE IV PRN ×4 (06:22→15:29)
[2022-12-30] MEDS ORDERED: Lorazepam PYXIS KEY PRN ×2 (06:29→16:18)
[2022-12-30] MEDS ORDERED: LORazepam 2 mg VIAL 1 ml IV PUSH ONE (06:29)
[2022-12-30] MEDS: Methadone ORALSYR CONC LIQ 10 MG/ML NG TUBE SCH ×3 (09:08→20:50)
[2022-12-30] MEDS: D5LR 20 MEQ KCL 1000 ml BAG 1,000 ML IV SCH ×2 (14:53→23:46)
[2022-12-30] MEDS: LORazepam 2 mg VIAL 1 ml IV PUSH PRN (16:59)
[2022-12-30] MEDS: Enoxaparin 40 MG/0.4 ML SYR SUBCUT SCH (20:37)
[2022-12-31] MEDS ORDERED: HYDROmorphone 1 MG/1 ML SYRINGE IV SLOW PU ONE (00:10)
[2022-12-31] MEDS: Pantoprazole 80 mg in NS BAG 80 MG/250 ML BAG IV SCH ×2 (02:03→12:40)
[2022-12-31 05:11] LABS: Hematocrit 28.9 % (38-53); Mean Corpuscular Hemoglobin 31.7 pg (27-33); Mean Corpuscular Hgb Conc 34.5 g/dL (31-36); Mean Corpuscular Volume 92.1 fL (80-97); Mean Platelet Volume 9.1 fL (7.5-11.2); Platelet Count 116 10^3/uL (150-450); Red Blood Count 3.14 10^6/uL (4.06-5.63); Red Cell Distribution Width 13.2 % (12-17); White Blood Count 3.6 10^3/uL (3.6-10.2)
[2022-12-31 05:26] LABS: Calcium 7.7 mg/dL (8.6-10.3); Creatinine, Serum 1.12 mg/dL (0.67-1.17); eGFR CKD-EPI 72.9 (>60)
[2022-12-31] MEDS: LORazepam 2 mg VIAL 1 ml IV PUSH PRN ×3 (06:05→19:36)
[2022-12-31] MEDS: Levothyroxine 100 MCG/5 ML VIAL IV SCH (06:06)
[2022-12-31] MEDS: levETIRAcetam 1000MG IVPREMIX 1,000 MG/100 ML BAG IVPB SCH ×2 (06:16→17:32)
[2022-12-31] MEDS ORDERED: D5W 1/2 NS KCl 20 meq 1000 ml 1,000 ML IV SCH (08:00)
[2022-12-31] MEDS: D5W 1/2 NS KCl 20 meq 1000 ml 1,000 ML IV SCH ×2 (10:08→18:05)
[2022-12-31] MEDS: Methadone ORALSYR CONC LIQ 10 MG/ML NG TUBE SCH ×3 (10:16→22:06)
[2022-12-31] MEDS: HYDROmorphone 1 MG/1 ML SYRINGE IV PRN ×2 (13:43→16:14)
[2022-12-31] MEDS: Enoxaparin 40 MG/0.4 ML SYR SUBCUT SCH (21:39)
[2023-01-01] MEDS ORDERED: Lorazepam PYXIS KEY PRN (00:39)
[2023-01-01] MEDS ORDERED: LORazepam 2 mg VIAL 1 ml IV PUSH ONE (00:39)
[2023-01-01] MEDS: LORazepam 2 mg VIAL 1 ml IV PUSH PRN ×3 (00:58→16:44)
[2023-01-01] MEDS: Pantoprazole 80 mg in NS BAG 80 MG/250 ML BAG IV SCH ×3 (02:56→15:07)
[2023-01-01] MEDS: Levothyroxine 100 MCG/5 ML VIAL IV SCH (05:40)
[2023-01-01] MEDS: levETIRAcetam 1000MG IVPREMIX 1,000 MG/100 ML BAG IVPB SCH ×2 (05:44→19:28)
[2023-01-01] MEDS: HYDROmorphone 1 MG/1 ML SYRINGE IV PRN ×2 (06:23→13:16)
[2023-01-01] MEDS: Ondansetron 4 mg VIAL 2 MG/ML 2 ml VIAL IV PRN (07:26)
[2023-01-01] MEDS: Methadone ORALSYR CONC LIQ 10 MG/ML NG TUBE SCH ×3 (08:16→21:05)
[2023-01-01 08:48] LABS: ABS Eosinophils 0.1 10^3/uL (0.0-0.5); ABS Lymphocytes 0.6 10^3/uL (1.0-4.8); ABS Monocytes 0.4 10^3/uL (0.0-1.1); ABS Neutrophils 3.3 10^3/uL (1.5-7.6); ABS Nucleated RBC 0.01 10^3/ul; Eosinophil % 3.3 %; Hematocrit 32.3 % (38-53); Hemoglobin 11.1 g/dL (13.2-16.3); Lymphocyte % 13.7 %; Mean Corpuscular Hemoglobin 31.4 pg (27-33); Mean Corpuscular Hgb Conc 34.4 g/dL (31-36); Mean Corpuscular Volume 91.3 fL (80-97); Mean Platelet Volume 9.4 fL (7.5-11.2); Nucleated Red Blood Cells % 0.1 /100 WBC (0.0-0.4); Platelet Count 133 10^3/uL (150-450); Red Blood Count 3.54 10^6/uL (4.06-5.63); Red Cell Distribution Width 13.2 % (12-17); White Blood Count 4.4 10^3/uL (3.6-10.2)
[2023-01-01 09:04] LABS: Creatinine, Serum 1.11 mg/dL (0.67-1.17); eGFR CKD-EPI 73.7 (>60)
[2023-01-01] MEDS ORDERED: Pantoprazole 80 mg in NS BAG 80 MG/250 ML BAG IV SCH (13:00)
[2023-01-01] MEDS ORDERED: D5W 1/2 NS KCl 20 meq 1000 ml 1,000 ML IV SCH (17:00)
[2023-01-01] MEDS: Enoxaparin 40 MG/0.4 ML SYR SUBCUT SCH (21:17)
[2023-01-02] MEDS: HYDROmorphone 1 MG/1 ML SYRINGE IV PRN ×3 (00:21→18:53)
[2023-01-02] MEDS: Pantoprazole 80 mg in NS BAG 80 MG/250 ML BAG IV SCH ×3 (02:22→22:17)
[2023-01-02] MEDS: Levothyroxine 100 MCG/5 ML VIAL IV SCH (05:51)
[2023-01-02 05:52] LABS: ABS Eosinophils 0.3 10^3/uL (0.0-0.5); ABS Lymphocytes 1.6 10^3/uL (1.0-4.8); ABS Monocytes 0.5 10^3/uL (0.0-1.1); ABS Neutrophils 2.9 10^3/uL (1.5-7.6); ABS Nucleated RBC 0.02 10^3/ul; Eosinophil % 6.4 %; Hematocrit 36.8 % (38-53); Hemoglobin 12.5 g/dL (13.2-16.3); Lymphocyte % 29.1 %; Mean Corpuscular Hemoglobin 31.2 pg (27-33); Mean Corpuscular Hgb Conc 34.1 g/dL (31-36); Mean Corpuscular Volume 91.7 fL (80-97); Mean Platelet Volume 9.3 fL (7.5-11.2); Nucleated Red Blood Cells % 0.3 /100 WBC (0.0-0.4); Platelet Count 178 10^3/uL (150-450); Red Blood Count 4.01 10^6/uL (4.06-5.63); Red Cell Distribution Width 13.4 % (12-17); White Blood Count 5.4 10^3/uL (3.6-10.2)
[2023-01-02] MEDS: levETIRAcetam 1000MG IVPREMIX 1,000 MG/100 ML BAG IVPB SCH ×2 (05:57→18:01)
[2023-01-02 06:24] LABS: Calcium 8.9 mg/dL (8.6-10.3); Creatinine, Serum 1.22 mg/dL (0.67-1.17); Potassium 4.3 mmol/L (3.5-5.0); eGFR CKD-EPI 65.8 (>60)
[2023-01-02] MEDS: LORazepam 2 mg VIAL 1 ml IV PUSH PRN ×3 (06:43→18:53)
[2023-01-02] MEDS: Methadone ORALSYR CONC LIQ 10 MG/ML NG TUBE SCH ×3 (09:51→22:16)
[2023-01-02] MEDS: D5LR 20 MEQ KCL 1000 ml BAG 1,000 ML IV SCH ×2 (10:08→21:59)
[2023-01-02] MEDS ORDERED: Propofol 10 MG/ML 20 ML BTL ONE (15:13)
[2023-01-02] MEDS ORDERED: Ketamine HCL 50 mg/ml 10 ml VIAL (500 MG) ONE (15:33)
[2023-01-02] MEDS ORDERED: Prochlorperazine 5 mg/ml 2 ml VIAL (10 mg) IV PRN (16:15)
[2023-01-02] MEDS ORDERED: Naloxone 0.4 mg VIAL 0.4 mg/ml 1 ml VIAL IV PRN (16:15)
[2023-01-02] MEDS ORDERED: Ondansetron 4 mg VIAL 2 MG/ML 2 ml VIAL IV PRN (16:15)
[2023-01-02] MEDS ORDERED: Prochlorperazine 5 mg/ml 2 ml VIAL (10 mg) ONE (16:19)
[2023-01-02] MEDS ORDERED: Ondansetron 4 mg VIAL 2 MG/ML 2 ml VIAL ONE (16:19)
[2023-01-02] MEDS: Enoxaparin 40 MG/0.4 ML SYR SUBCUT SCH (21:59)
[2023-01-03] MEDS: LORazepam 2 mg VIAL 1 ml IV PUSH PRN ×3 (03:14→20:38)
[2023-01-03] MEDS: HYDROmorphone 1 MG/1 ML SYRINGE IV PRN ×6 (03:15→22:51)
[2023-01-03] MEDS: D5LR 20 MEQ KCL 1000 ml BAG 1,000 ML IV SCH ×3 (06:03→19:00)
[2023-01-03] MEDS: levETIRAcetam 1000MG IVPREMIX 1,000 MG/100 ML BAG IVPB SCH ×2 (06:08→18:26)
[2023-01-03] MEDS: Levothyroxine 100 MCG/5 ML VIAL IV SCH (06:08)
[2023-01-03] MEDS: Methadone ORALSYR CONC LIQ 10 MG/ML NG TUBE SCH ×3 (08:27→20:37)
[2023-01-03] MEDS: Pantoprazole 80 mg in NS BAG 80 MG/250 ML BAG IV SCH ×2 (09:18→22:48)
[2023-01-03 09:20] LABS: ABS Eosinophils 0.2 10^3/uL (0.0-0.5); ABS Lymphocytes 0.6 10^3/uL (1.0-4.8); ABS Monocytes 0.3 10^3/uL (0.0-1.1); ABS Neutrophils 2.2 10^3/uL (1.5-7.6); Eosinophil % 6.1 %; Hematocrit 31.1 % (38-53); Hemoglobin 10.6 g/dL (13.2-16.3); Mean Corpuscular Hemoglobin 31.3 pg (27-33); Mean Corpuscular Hgb Conc 34.2 g/dL (31-36); Mean Corpuscular Volume 91.5 fL (80-97); Mean Platelet Volume 9.8 fL (7.5-11.2); Nucleated Red Blood Cells % 0.1 /100 WBC (0.0-0.4); Platelet Count 120 10^3/uL (150-450); Red Cell Distribution Width 13.7 % (12-17); White Blood Count 3.3 10^3/uL (3.6-10.2)
[2023-01-03] MEDS: Ondansetron 4 mg VIAL 2 MG/ML 2 ml VIAL IV PRN ×2 (10:07→20:36)
[2023-01-03 10:23] LABS: Vitamin B12 > 1450 pg/mL (180-914)
[2023-01-03 11:09] LABS: Anion Gap 9 mmol/L (2-16); Blood Urea Nitrogen 11 mg/dL (6-24); CO2 Carbon Dioxide 23 mmol/L (22-32); Calcium 8.3 mg/dL (8.6-10.3); Chloride 108 mmol/L (101-111); Cholesterol 117 mg/dL; Creatinine, Serum 1.12 mg/dL (0.67-1.17); Glucose 142 mg/dL (70-100); HDL Cholesterol 32.4 mg/dL; LDL Cholesterol 61 mg/dL; Magnesium 1.7 mg/dL (1.9-2.7); Potassium 4.2 mmol/L (3.5-5.0); Sodium 140 mmol/L (135-145); Triglycerides 118 mg/dL; eGFR CKD-EPI 72.9 (>60)
[2023-01-03] MEDS ORDERED: Acetaminophen IV 1 GM/100ML 1,000 MG/100 ML BAG IV PRN (13:20)
[2023-01-03] MEDS ORDERED: fentaNYL PATCH 37.5 MCG/HR(NF) PATCH.TD72 TRANSDERM SCH (14:00)
[2023-01-03] MEDS: fentaNYL PATCH 25 MCG/HR 1 PATCH TRANSDERM SCH ×2 (14:43→19:37)
[2023-01-03] MEDS: fentaNYL PATCH 12 MCG/HR 1 PATCH TRANSDERM SCH ×2 (14:43→19:35)
[2023-01-03] MEDS ORDERED: fentaNYL Patch Check Q Shift NOTE FOLLOW UP SCH ×2 (19:00)
[2023-01-03] MEDS: HYDROmorphone 0.5 MG/0.5 ML SYRINGE IV PRN (20:36)
[2023-01-04] MEDS: D5LR 20 MEQ KCL 1000 ml BAG 1,000 ML IV SCH ×3 (02:31→21:46)
[2023-01-04] MEDS: Ondansetron 4 mg VIAL 2 MG/ML 2 ml VIAL IV PRN ×4 (02:41→21:18)
[2023-01-04] MEDS: LORazepam 2 mg VIAL 1 ml IV PUSH PRN ×4 (02:42→23:09)
[2023-01-04] MEDS: Levothyroxine 100 MCG/5 ML VIAL IV SCH (05:38)
[2023-01-04] MEDS: levETIRAcetam 1000MG IVPREMIX 1,000 MG/100 ML BAG IVPB SCH ×2 (05:40→18:32)
[2023-01-04] MEDS: HYDROmorphone 1 MG/1 ML SYRINGE IV PRN ×5 (05:42→19:18)
[2023-01-04 08:37] LABS: Hematocrit 30.7 % (38-53); Hemoglobin 10.6 g/dL (13.2-16.3); Mean Corpuscular Hemoglobin 31.4 pg (27-33); Mean Corpuscular Hgb Conc 34.4 g/dL (31-36); Mean Corpuscular Volume 91.2 fL (80-97); Mean Platelet Volume 9.8 fL (7.5-11.2); Platelet Count 129 10^3/uL (150-450); Red Blood Count 3.36 10^6/uL (4.06-5.63); Red Cell Distribution Width 13.8 % (12-17); White Blood Count 3.4 10^3/uL (3.6-10.2)
[2023-01-04] MEDS: Methadone ORALSYR CONC LIQ 10 MG/ML NG TUBE SCH ×3 (08:38→21:49)
[2023-01-04] MEDS: HYDROmorphone 0.5 MG/0.5 ML SYRINGE IV PRN (08:43)
[2023-01-04 09:30] LABS: Calcium 8.2 mg/dL (8.6-10.3); Creatinine, Serum 1.21 mg/dL (0.67-1.17); Potassium 4.1 mmol/L (3.5-5.0); eGFR CKD-EPI 66.4 (>60)
[2023-01-04] MEDS: Pantoprazole 80 mg in NS BAG 80 MG/250 ML BAG IV SCH ×2 (10:22→23:09)
[2023-01-04] MEDS ORDERED: Lorazepam PYXIS KEY PRN (12:21)
[2023-01-04] MEDS ORDERED: LORazepam 2 mg VIAL 1 ml IV PUSH ONE (12:21)
[2023-01-05] MEDS: HYDROmorphone 1 MG/1 ML SYRINGE IV PRN ×6 (01:08→22:25)
[2023-01-05] MEDS: Levothyroxine 100 MCG/5 ML VIAL IV SCH (06:03)
[2023-01-05] MEDS: levETIRAcetam 1000MG IVPREMIX 1,000 MG/100 ML BAG IVPB SCH ×2 (06:08→17:53)
[2023-01-05 06:10] LABS: Hematocrit 31.6 % (38-53); Hemoglobin 10.8 g/dL (13.2-16.3); Mean Corpuscular Hemoglobin 31.1 pg (27-33); Mean Corpuscular Hgb Conc 34.1 g/dL (31-36); Mean Corpuscular Volume 91.2 fL (80-97); Mean Platelet Volume 9.9 fL (7.5-11.2); Platelet Count 128 10^3/uL (150-450); Red Blood Count 3.47 10^6/uL (4.06-5.63); Red Cell Distribution Width 13.7 % (12-17); White Blood Count 2.6 10^3/uL (3.6-10.2)
[2023-01-05 06:21] LABS: Calcium 8.5 mg/dL (8.6-10.3); Creatinine, Serum 1.17 mg/dL (0.67-1.17); Potassium 4.3 mmol/L (3.5-5.0); eGFR CKD-EPI 69.2 (>60)
[2023-01-05] MEDS: LORazepam 2 mg VIAL 1 ml IV PUSH PRN ×2 (06:32→22:57)
[2023-01-05] MEDS: D5LR 20 MEQ KCL 1000 ml BAG 1,000 ML IV SCH ×2 (06:43→15:46)
[2023-01-05] MEDS: Ondansetron 4 mg VIAL 2 MG/ML 2 ml VIAL IV PRN ×3 (08:27→21:32)
[2023-01-05] MEDS: Pantoprazole 80 mg in NS BAG 80 MG/250 ML BAG IV SCH ×3 (10:24→21:32)
[2023-01-05] MEDS: Methadone ORALSYR CONC LIQ 10 MG/ML NG TUBE SCH ×3 (12:08→21:27)
[2023-01-05] MEDS: Enoxaparin 40 MG/0.4 ML SYR SUBCUT SCH (12:15)
[2023-01-05] MEDS: HYDROmorphone 0.5 MG/0.5 ML SYRINGE IV PRN (18:43)
[2023-01-06] MEDS: HYDROmorphone 1 MG/1 ML SYRINGE IV PRN ×7 (02:26→20:07)
[2023-01-06] MEDS: Ondansetron 4 mg VIAL 2 MG/ML 2 ml VIAL IV PRN ×3 (02:41→20:08)
[2023-01-06] MEDS: levETIRAcetam 1000MG IVPREMIX 1,000 MG/100 ML BAG IVPB SCH ×2 (05:05→18:23)
[2023-01-06] MEDS: Levothyroxine 100 MCG/5 ML VIAL IV SCH (05:05)
[2023-01-06 05:56] LABS: Hemoglobin 10.9 g/dL (13.2-16.3); Mean Corpuscular Hemoglobin 31.1 pg (27-33); Mean Corpuscular Hgb Conc 34.1 g/dL (31-36); Mean Corpuscular Volume 91.1 fL (80-97); Mean Platelet Volume 10.1 fL (7.5-11.2); Platelet Count 161 10^3/uL (150-450); Red Blood Count 3.51 10^6/uL (4.06-5.63); Red Cell Distribution Width 13.9 % (12-17); White Blood Count 3.7 10^3/uL (3.6-10.2)
[2023-01-06 06:17] LABS: Calcium 8.8 mg/dL (8.6-10.3); Creatinine, Serum 1.27 mg/dL (0.67-1.17); Magnesium 1.7 mg/dL (1.9-2.7); Phosphorus 4.4 mg/dL (2.5-5.0); Potassium 4.4 mmol/L (3.5-5.0); eGFR CKD-EPI 62.7 (>60)
[2023-01-06] MEDS ORDERED: Magnesium Sulfate 2 gm BAG 2 GM/50 ML BAG IVPB ONE (06:58)
[2023-01-06] MEDS: LORazepam 2 mg VIAL 1 ml IV PUSH PRN ×3 (08:53→20:37)
[2023-01-06] MEDS: Pantoprazole 80 mg in NS BAG 80 MG/250 ML BAG IV SCH ×2 (09:28→20:07)
[2023-01-06] MEDS: Methadone ORALSYR CONC LIQ 10 MG/ML NG TUBE SCH ×3 (10:15→20:07)
[2023-01-06] MEDS: Enoxaparin 40 MG/0.4 ML SYR SUBCUT SCH (10:42)
[2023-01-06] MEDS ORDERED: Lidocaine PATCH 4% TOPICAL PRN (21:49)
[2023-01-07] MEDS: Ondansetron 4 mg VIAL 2 MG/ML 2 ml VIAL IV PRN ×3 (00:31→10:29)
[2023-01-07] MEDS: HYDROmorphone 1 MG/1 ML SYRINGE IV PRN ×4 (00:31→09:25)
[2023-01-07] MEDS: Levothyroxine 100 MCG/5 ML VIAL IV SCH (05:24)
[2023-01-07] MEDS: levETIRAcetam 1000MG IVPREMIX 1,000 MG/100 ML BAG IVPB SCH (05:24)
[2023-01-07 05:48] LABS: ABS Eosinophils 0.3 10^3/uL (0.0-0.5); ABS Lymphocytes 0.6 10^3/uL (1.0-4.8); ABS Monocytes 0.3 10^3/uL (0.0-1.1); Eosinophil % 9.1 %; Hematocrit 31.9 % (38-53); Hemoglobin 10.9 g/dL (13.2-16.3); Lymphocyte % 19.4 %; Mean Corpuscular Hemoglobin 30.7 pg (27-33); Mean Corpuscular Volume 90.3 fL (80-97); Mean Platelet Volume 9.9 fL (7.5-11.2); Nucleated Red Blood Cells % 0.1 /100 WBC (0.0-0.4); Platelet Count 155 10^3/uL (150-450); Red Blood Count 3.53 10^6/uL (4.06-5.63); Red Cell Distribution Width 13.7 % (12-17); White Blood Count 3.3 10^3/uL (3.6-10.2)
[2023-01-07 06:02] LABS: INR 1.26 (0.83-1.13)
[2023-01-07] MEDS: LORazepam 2 mg VIAL 1 ml IV PUSH PRN ×2 (06:08→14:10)
[2023-01-07 06:11] LABS: Calcium 8.7 mg/dL (8.6-10.3); Creatinine, Serum 1.37 mg/dL (0.67-1.17); Magnesium 1.9 mg/dL (1.9-2.7); Phosphorus 4.1 mg/dL (2.5-5.0); Potassium 4.2 mmol/L (3.5-5.0); eGFR CKD-EPI 57.2 (>60)
[2023-01-07] MEDS: Pantoprazole 80 mg in NS BAG 80 MG/250 ML BAG IV SCH ×2 (09:24→10:28)
[2023-01-07] MEDS: Enoxaparin 40 MG/0.4 ML SYR SUBCUT SCH (09:28)
[2023-01-07] MEDS: Methadone ORALSYR CONC LIQ 10 MG/ML NG TUBE SCH ×2 (09:28→13:59)
[2023-01-07] MEDS ORDERED: D5LR 1000 ml BAG 1,000 ML IV SCH (11:00)
[2023-01-07 14:25] LABS: Calcium 9.1 mg/dL (8.6-10.3)
[2023-01-07 14:30] LABS: Creatinine, Serum 1.44 mg/dL (0.67-1.17); eGFR CKD-EPI 53.9 (>60)
[2023-01-07 15:42] VITALS: BP 113/71
== END 2023-01-07 15:45 | disposition short-term general hospital (02) | DRG 384 ==
LOC: EDHOLD 12:20 → ED 12:20 → SUATTDRO 20:45 → MEDTELE 12-29 10:25
PROVIDERS: ADMIT Internal Medicine; ATTEND Hospitalist
PROC: O.GIEGD (2022-12-29 17:00)